=== PATIENT | female | born 1950 | race Caucasian/White ===

== ENCOUNTER 2016-11-26 08:00 | Outpatient (CLI) | payer MEDICARE | END 2016-11-26 08:01 | disposition home or self-care (01) | DX: B19.20 Unspecified viral hepatitis C without hepatic coma (principal) ==

== ENCOUNTER 2017-02-22 09:54 | Outpatient (CLI) | payer MEDICARE | END 2017-02-22 09:55 | disposition home or self-care (01) | DX: B19.20 Unspecified viral hepatitis C without hepatic coma (principal) ==

== ENCOUNTER 2017-04-26 09:18 | Outpatient (CLI) | payer MEDICARE, MEDICAID ==
[2017-04-26 20:44] LABS: CHOL/HDL RATIO 3.1 (<4.4); CHOLESTEROL 178 mg/dL; HDL CHOLESTEROL 57 mg/dL; LDL/HDL RATIO 1.6 (<4.4); TRIGLYCERIDES 138 mg/dL; VLDL CHOLESTEROL 28 mg/dL
== END 2017-04-26 09:19 | disposition home or self-care (01) ==
LOC: LAB.F 09:18
PROVIDERS: ATTEND Internal Medicine Cardiovascular Disease
DX: E78.5 Hyperlipidemia, unspecified (principal)
CPT/HCPCS: 36415; 80061

== ENCOUNTER 2017-08-13 09:56 | Outpatient (CLI) | payer MEDICARE, MEDICAID ==
[2017-08-13 18:50] LABS: BUN - BLOOD UREA NITROGEN 25 mg/dL (6-20); CALCIUM 9.2 mg/dL (8.5-10.3); CARBON DIOXIDE - CO2 30 mmol/L (21-32); CHLORIDE 102 mmol/L (101-111); CHOLESTEROL 155 mg/dL; CREATININE 0.8 mg/dL (0.4-1.0); GFR - MDRD 72 (>89); GLUCOSE 101 mg/dL (70-100); HDL CHOLESTEROL 51 mg/dL; LDL/HDL RATIO 1.7 (<4.4); POTASSIUM 4.3 mmol/L (3.5-5.0); SODIUM 138 mmol/L (135-145); TRIGLYCERIDES 91 mg/dL; VLDL CHOLESTEROL 18 mg/dL
== END 2017-08-13 09:57 | disposition home or self-care (01) ==
LOC: LAB.F 09:56
PROVIDERS: ATTEND Internal Medicine Cardiovascular Disease
DX: E78.5 Hyperlipidemia, unspecified (principal); I10 Essential (primary) hypertension
CPT/HCPCS: 36415; 80048; 80061

== ENCOUNTER 2017-09-03 08:36 | Outpatient (CLI) | payer MEDICARE, MEDICAID ==
--- NOTE | 2017-09-04 15:20 | Mammography Report ---
DIGITAL SCREENING MAMMOGRAM: 09/03/2017 CLINICAL INDICATION: A 66-year-old, for screening. COMPARISON: 11/2013, 11/2012, 10/2011, 01/2010. TECHNIQUE: Routine CC and MLO projections were obtained of the breasts. FINDINGS: Scattered fibroglandular tissue is present within the breasts. There are no dominant urmila s, suspicious microcalcifications, or secondary signs of malignancy. In comparison to the previous st udies, there are no significant changes. ASSESSMENT: NO MAMMOGRAPHIC EVIDENCE OF MALIGNANCY. NO SIGNIFICANT INTERVAL CHANGES. RECOMMENDATION: Screening mammography is recommended annually. BIRADS category 1 - negative. STANDARD QUALIFYING STATEMENTS 1. This examination was reviewed with the aid of Computed-Aided Detection (CAD). 2. A negative or benign imaging report should not delay biopsy if clinically suspicious findings are present. Consider surgical consultation if warranted. More than 5% of cancers are not identified by i maging. 3. Dense breasts may obscure an underlying neoplasm. JOB #: [id number] EXT JOB #:[id number]
== END 2017-09-03 08:37 | disposition home or self-care (01) ==
LOC: DI.S 08:36
PROVIDERS: ATTEND Nurse Practitioner Family
DX: Z12.31 Encounter for screening mammogram for malignant neoplasm of breast (principal)
CPT/HCPCS: 77067

== ENCOUNTER 2018-05-22 08:10 | Outpatient (CLI) | payer MEDICARE, MEDICAID | END 2018-05-22 08:11 | disposition critical access hospital (66) | LOC: EMS 08:10 | PROVIDERS: ATTEND Surgery | DX: R42 Dizziness and giddiness (principal); R06.00 Dyspnea, unspecified | CPT/HCPCS: A0425; A0427 ==

== ENCOUNTER 2018-05-22 08:38 | Inpatient (IN) | payer MEDICARE, MEDICAID ==
--- NOTE | 2018-05-22 08:52 | ED Physician Documentation ---
History of Present Illness - Stated complaint Stated Complaint: SOA, DIZZY, FALL - Chief complaint Chief Complaint: Resp - Additonal information Additional information: hx from pt 67 female this AM she became weak and SOA and slumped to the floor per EMS no injury pt says her head hurts denies neck pain states she had a period of inability to speak - could not form the words no focal numbness or weakness not sure of duration of sx but more than 10 min and less than 1 hr per EMS she was found to be in new onset a fib pt recently saw cardiology for soa with exertion and was told he had a healthy heart denies fever cough NVD no CP EMS strated a duoneb which did not help ahd gave dilt for RVR Review of Systems Constitutional: denies: Fever Throat: denies: Sore throat Cardiac: denies: Chest pain / pressure, Palpitations Respiratory: reports: Dyspnea. denies: Cough GI: denies: Abdominal Pain, Nausea, Vomiting Neurologic: reports: Generalized weakness, Near syncope, Headache. denies: Focal weakness, Numbness, Head injury Endocrine: denies: Easy bruising / bleeding Immunocompromised: denies: Immunocompromised PD PAST MEDICAL HISTORY - Past Medical History Cardiovascular: Deep vein thrombosis, High cholesterol, Hypertension Respiratory: None Endocrine/Autoimmune: None GI: Hepatitis : None HEENT: None Psych: Post traumatic stress disorder Musculoskeletal: None, Osteoarthritis Derm: None - Past Surgical History Past Surgical History: Yes General: Colonoscopy, Other Ortho: Other HEENT: Other - Present Medications Home Medications: Ambulatory Orders Medication Instructions Recorded Confirmed Aspirin Chewable [St Bruce 81 mg PO DAILY 07/31/15 05/22/18 Aspirin] Meloxicam 7.5 mg PO BID PRN 10/26/15 05/22/18 Amlodipine Besylate 2.5 mg PO DAILY 05/22/18 05/22/18 Atorvastatin Calcium 40 mg PO QPM 05/22/18 05/22/18 Ergocalciferol [Vitamin D2] 50,000 units PO WESA@0900 05/22/18 05/22/18 Furosemide 20 mg PO DAILY 05/22/18 05/22/18 Lisinopril 20 mg PO DAILY 05/22/18 05/22/18 Spironolactone 25 mg PO DAILY 05/22/18 05/22/18 - Allergies Allergies/Adverse Reactions: Allergies Allergy/AdvReac Type Severity Reaction Status Date / Time bupropion HCl * Allergy Severe Hallucinati Verified 05/22/18 08:48 [From Wellbutrin] ons - Social History Does the pt smoke?: No Smoking Status: Former smoker Does the pt drink ETOH?: No - Immunizations Immunizations are current?: Yes PD ED PE NORMAL - Vitals Vital signs reviewed: Yes - General General: Alert and oriented X 3 - HEENT HEENT: PERRL - Neck Neck: Supple, no meningeal sign - Cardiac Cardiac: No: RRR - Respiratory Respiratory: Clear bilaterally - Abdomen Abdomen: Soft, Non tender - Derm Derm: Normal color - Neuro Neuro: Alert and oriented X 3, cast associate 2-12 intact, No motor deficit, No sensory deficit, Normal speech, Other (at this time NIHSS is zero) Eye Opening: Spontaneous Motor: Obeys Commands Verbal: Oriented GCS Score: 15 Results - Vitals Vitals: Vital Signs - 24 hr 05/22/18 05/22/18 05/22/18 08:44 09:12 10:12 Temperature 36.3 C L 36.6 C Heart Rate 73 66 74 Respiratory 17 17 20 Rate Blood Pressure 135/86 H 119/77 136/92 H O2 Saturation 94 97 100 05/22/18 05/22/18 05/22/18 11:10 12:06 13:32 Temperature Heart Rate 78 84 117 H Respiratory 20 20 18 Rate Blood Pressure 132/89 H 133/95 H 113/94 H O2 Saturation 96 96 94 Oxygen O2 Source Room air - EKG (time done) 0851 Rate: Rate (enter#) Rhythm: Atrial fibrillation Intervals: LBBB Other comments: Other comments (this is a change form her prior EKG and sounds like it is very new as she just saw her heel packer as was told everything was normal) - Labs Labs: Laboratory Tests 05/22/18 05/22/18 05/22/18 09:20 09:20 09:20 WBC 8.4 RBC 4.46 Hgb 13.4 Hct 40.3 MCV 90.3 MCH 30.0 MCHC 33.2 RDW 14.2 Plt Count 170 MPV 9.4 Neut # (Auto) 6.0 Lymph # (Auto) 1.7 [place] # (Auto) 0.5 Eos # (Auto) 0.1 Baso # (Auto) 0.1 Absolute Nucleated RBC 0.00 Nucleated RBC % 0.0 Sodium 137 Potassium 3.9 Chloride 102 Carbon Dioxide 30 Anion Gap 5.0 L BUN 18 Creatinine 0.7 Estimated GFR (MDRD) 83 L Glucose 124 H Calcium 8.7 Troponin I < 0.04 Urine Color Urine Clarity Urine pH Ur Specific [place] Urine Protein Urine Glucose (UA) Urine Ketones Urine Occult Blood Urine Nitrite Urine Bilirubin Urine Urobilinogen Ur Leukocyte Esterase Ur Microscopic Review Urine Culture Comments 05/22/18 12:03 WBC RBC Hgb Hct MCV MCH MCHC RDW Plt Count MPV Neut # (Auto) Lymph # (Auto) [place] # (Auto) Eos # (Auto) Baso # (Auto) Absolute Nucleated RBC Nucleated RBC % Sodium Potassium Chloride Carbon Dioxide Anion Gap BUN Creatinine Estimated GFR (MDRD) Glucose Calcium Troponin I Urine Color YELLOW Urine Clarity CLEAR Urine pH 5.0 Ur Specific [place] 1.015 Urine Protein NEGATIVE Urine Glucose (UA) NEGATIVE Urine Ketones NEGATIVE Urine Occult Blood TRACE-INTA Urine Nitrite NEGATIVE Urine Bilirubin NEGATIVE Urine Urobilinogen 0.2 (NORMAL) Ur Leukocyte Esterase NEGATIVE Ur Microscopic Review NOT INDICATED Urine Culture Comments NOT INDICATED - Rads (name of study) CTH Radiology: See rad report (no acute process) PD MEDICAL DECISION MAKING - ED course ED course: obtained records from [facility] cardio pt seen 04/04 EKG showed a fib and LBBB no afib is NOT NEW stress EKG was non diagnostic nuc stress showed nl myocardial perfusion, low risk for major coronary ischemic events there is no discussion in notes I received about anticoagulating pt for her a fib got updated med list from PMD and no anticoag pt not SOA upon arrival in ED seems she had an episodes of severe weakness and aphasia now resolved and she has a fib and is not anticoagulated CTH neg may be a TIA ABCD2 score 4 also may have int a fib - perhaps that is why she felt suddenly faint this morning rate better with dilt from EMS plan to admit to obs for TIA to get echo carotids serial neuro exams etc gave asa serial neuro exams in ED = no acute changes - Sepsis Event Vital Signs: Vital Signs - 24 hr 05/22/18 05/22/18 05/22/18 08:44 09:12 10:12 Temperature 36.3 C L 36.6 C Heart Rate 73 66 74 Respiratory 17 17 20 Rate Blood Pressure 135/86 H 119/77 136/92 H O2 Saturation 94 97 100 05/22/18 05/22/18 05/22/18 11:10 12:06 13:32 Temperature Heart Rate 78 84 117 H Respiratory 20 20 18 Rate Blood Pressure 132/89 H 133/95 H 113/94 H O2 Saturation 96 96 94 Oxygen O2 Source Room air Departure - Departure Disposition: ED Place in Observation Clinical Impression: TIA (transient ischemic attack) Atrial fibrillation Qualifiers: Atrial fibrillation type: unspecified Qualified Code(s): I48.91 - Unspecified atrial fibrillation Condition: Good NIHSS - Time Time: 08:45 - Level of Consciousness Level of consciousness: (0) Alert, Keenly responsive LOC Questions: (0) Answers both Q's correct LOC Commands: (0) Performs both correctly - Gaze Best Gaze: (0) Normal - Visual Visual: (0) No loss - Facial Palsy Facial Palsy: (0) Normal, symmetrical movement - Motor Arms (both separate) Motor Arm (right): (0) No drift Motor Arm (left): (0) No drift - Motor Legs (both separate) Motor Leg (right): (0) No drift Motor Leg (left): (0) No drift - Limb Ataxia Limb Ataxia: (0) Absent - Sensory Sensory: (0) Normal - Best Language Best Language: (0) No aphasia - Dysarthria Dysarthria: (0) Normal - Extinction and Inattention (formally neg Extinction and inattention: (0) No abnormality - Total Score/Results Total Score/Result: 0
[2018-05-22 09:30] LABS: BASOPHILS # (AUTO) 0.1 10^3/uL (0.0-0.1); BASOPHILS % (AUTO) 1.1 %; EOSINOPHILS # (AUTO) 0.1 10^3/uL (0.0-0.7); EOSINOPHILS % (AUTO) 0.8 %; HGB - HEMOGLOBIN 13.4 g/dL (12.0-16.0); LYMPHOCYTES # (AUTO) 1.7 10^3/uL (1.5-3.5); LYMPHOCYTES % (AUTO) 20.2 %; MEAN CORPUSCULAR HGB CONC 33.2 g/dL (32.0-36.0); MEAN CORPUSCULAR VOLUME 90.3 fL (81.0-99.0); MEAN PLATELET VOLUME 9.4 fL (7.9-10.8); MONOCYTES # (AUTO) 0.5 10^3/uL (0.0-1.0); MONOCYTES % (AUTO) 5.7 %; NEUTROPHILS % (AUTO) 72.2 %; PLT - PLATELET COUNT 170 10^3/uL (130-450); RED BLOOD COUNT 4.46 10^6/uL (4.20-5.40); RED CELL DISTRIBUTION WIDTH 14.2 % (12.0-15.0); WHITE BLOOD COUNT 8.4 x10^3/uL (4.8-10.8)
[2018-05-22 09:39] LABS: CALCIUM 8.7 mg/dL (8.5-10.3); CREATININE 0.7 mg/dL (0.4-1.0)
--- NOTE | 2018-05-22 10:06 | CT Report ---
Procedure Date: 05/22/2018 Accession Number: [id number] / [id number] Procedure: CT - Head W/O CPT Code: FULL RESULT: EXAM: CT HEAD EXAM DATE: 05/22/2018 09:40 AM. CLINICAL HISTORY: New atrial fibrillation. Abnormal speech. COMPARISON: 07/31/2015. TECHNIQUE: Multiaxial CT images were obtained from the foramen magnum to the vertex. Reformats: Sagittal and coronal. IV contrast: None. In accordance with CT protocol optimization, one or more of the following dose reduction techniques were utilized for this exam: automated exposure control, adjustment of mA and/or KV based on patient size, or use of iterative reconstructive technique. FINDINGS: Parenchyma: No intraparenchymal hemorrhage. No evidence of mass, midline shift, or CT findings of infarction. Georges-white differentiation is distinct. Extraaxial Spaces: Normal for age. No subdural or epidural collections identified. Ventricles: Normal in size and position. Sinuses and Orbits: Imaged paranasal sinuses, orbits, and mastoids show no significant abnormality. Bones: No evidence of fracture or calvarial defect. Other: None. IMPRESSION: Normal head CT. RADIA
[2018-05-22] MEDS ORDERED: ACETAMINOPHEN 325 MG TABLET PO STA (11:40)
[2018-05-22 12:16] LABS: BILIRUBIN,URINE NEGATIVE (NEGATIVE); GLUCOSE, URINE (UA) NEGATIVE (NEGATIVE); KETONES,URINE (UA) NEGATIVE (NEGATIVE); LEUKOCYTE ESTERASE, URINE NEGATIVE (NEGATIVE); NITRITE,URINE NEGATIVE (NEGATIVE); OCCULT BLOOD,URINE TRACE-INTA (NEGATIVE); PROTEIN,URINE NEGATIVE (NEGATIVE); UROBILINOGEN,URINE 0.2 (NORMAL) E.U./dL (NORMAL)
[2018-05-22 12:20] LABS: CLARITY,URINE CLEAR (CLEAR)
[2018-05-22] MEDS ORDERED: ASPIRIN CHEW 81 MG TABLET PO STA (12:36)
[2018-05-22] MEDS ORDERED: ACETAMINOPHEN 325 MG TABLET PO PRN (14:26)
--- NOTE | 2018-05-22 14:40 | HISTORY & PHYSICAL EXAMINATION ---
Chief Complaint - Chief Complaint Chief Complaint: TIA, left weakness History of Present Illness - Admitted From Admitted From:: ER - History Obtained From History obtained from: pt and her son - History of Present Illness HPI Comment/Other: Ms. Baez is a 67-yrs-old female with a PMH significant for HTN, HLD, DVT, Hepatitis C, PTSD, Osteoarthritis, who present ER complains of TIA. pt report today morning, she became so weak, she could not stand up, and slumped to the floor. There is no injury reported per EMS. Pt report she could not find the words to speak for a period of time. Pt's son found pt could not rise her left hand. pt report less than one hour, her symptoms disappeared. Pt report she visited her account development specialist about one month, she had chemical stress test, which reveals she had "good heart" by pt report. Pt denies chest pain, shortness of breath, headache, abdominal pain, nausea, vomiting, diarrhea, vision change, dysurina, hemoturia. In ER pt is found to have new onset of Afib in EKG. CT of head is unremarkable. Pt is admitted for TIA workup and new onset of Afib History - Past Medical History Cardiovascular: reports: Deep vein thrombosis, High cholesterol, Hypertension Respiratory: reports: None Endocrine/Autoimmune: reports: None GI: reports: Hepatitis : reports: None HEENT: reports: None Psych: reports: Post traumatic stress disorder Musculoskeletal: reports: None, Osteoarthritis Derm: reports: None MRSA Hx?: No - Past Surgical History General: reports: Colonoscopy, Other Ortho: reports: Other HEENT: reports: Other - Family & Social History Family History: Mother: , CVA/TIA, Father: , CAD Family History Comment/Other: pt is living alone at [facility], pt had two adopted sons Living arrangement: At home Living Situation: Alone Social History Notes: pt denies cigarette smoking, alcohol and drug abuse - Substance History Use: Uses substance without health or social issues: NONE - POLST Patient has POLST: No POLST Status: Full Code Meds/Allgy - Home Medications Home Medications: Ambulatory Orders Medication Instructions Recorded Confirmed Aspirin Chewable [St Bruce 81 mg PO DAILY 07/31/15 05/22/18 Aspirin] Meloxicam 7.5 mg PO BID PRN 10/26/15 05/22/18 Amlodipine Besylate 2.5 mg PO DAILY 05/22/18 05/22/18 Atorvastatin Calcium 40 mg PO QPM 05/22/18 05/22/18 Ergocalciferol [Vitamin D2] 50,000 units PO ARACELISA@0900 05/22/18 05/22/18 Furosemide 20 mg PO DAILY 05/22/18 05/22/18 Lisinopril 20 mg PO DAILY 05/22/18 05/22/18 Spironolactone 25 mg PO DAILY 05/22/18 05/22/18 - Allergies Allergies/Adverse Reactions: Allergies Allergy/AdvReac Type Severity Reaction Status Date / Time bupropion HCl * Allergy Severe Hallucinati Verified 05/22/18 08:48 [From Wellbutrin] ons Review of Systems - Constitutional Constitutional: reports: Weakness. denies: Fatigue, Fever, Chills, Malaise, Poor appetite, Diaphoresis, Night sweats - Eyes Eyes: denies: Pain, Irritation, Amaurosis, Blurred vision, Spots in vision, Field loss, Vision loss, Dipolpia - Ears, Nose & Throat Ears, Nose & Throat: denies: Ear pain, Hearing loss, Hearing aids, Tinnitus, Nasal pain, Nasal discharge, Nosebleeds, Nasal obstruction, Nasal congestion, Postnasal drainage, Dentures, Sore throat, Hoarseness, Mouth lesions, Bleeding gums, Dental decay - Cardiovascular Cariovascular: denies: Irregular heart rate, Palpitations, Chest pain, Edema, Lightheadedness, Syncope, Exertional dyspnea, Decr. exercise tolerance - Respiratory Respiratory: denies: Cough, Sputum production, Wheezing, Snoring, Hemoptysis, Orthopnea, SOB at rest, SOB with exertion - Gastrointestinal Gastrointestinal: denies: Abdominal pain, Abdominal distention, Constipation, Diarrhea, Change in bowel habits, Rectal bleeding, Black stools, Bloody stools, Nausea, Vomiting, Bile emesis, Juan blood emesis, Coffee grounds emesis, Reflux /heartburn - Genitourinary Genitourinary: denies: Dysuria, Frequency, Urgency, Hematuria, Incontinence, Flank pain, Nocturia, Urethral discharge - Musculoskeletal Musculoskeletal: denies: Muscle pain, Back pain, Muscle aches, Stiffness, Limited range of motion, Muscle weakness, Gout, Joint pain - Integumentary Integumentary: denies: Rash, Pruritis, Lesions, Dryness, Lumps, Acne, Pigment changes, Nail changes - Neurological Neurological: reports: Focal weakness, Dizziness, Abnormal gait, Incoordination. denies: General weakness, Headache, Numbness, Memory problems, Pre-existing deficit, Seizures, Slurred speech - Psychiatric Psychiatric: denies: Depression, Anxiety, Suicidal, Delusions, Hallucinations, Homicidal - Endocrine Endocrine: denies: Polyuria, Polydypsia, Polyphagia, Intolerance to cold - Hematologic/Lymphatic Hematologic/Lymphatic: denies: Anemia, Bruising, Petechiae, Blood clots, Lymphadenopathy, Bleeding tendencies Exam - Vital Signs Reviewed Vital Signs: Yes Vital Signs: Vital Signs x48h Temp Pulse Resp BP Pulse Ox 05/22/18 13:32 117 H 18 113/94 H 94 05/22/18 12:06 84 20 133/95 H 96 05/22/18 11:10 78 20 132/89 H 96 05/22/18 10:12 74 20 136/92 H 100 05/22/18 09:12 36.6 C 66 17 119/77 97 05/22/18 08:44 36.3 C L 73 17 135/86 H 94 - Physical Exam General Appearance: positive: No acute distress, Alert. negative: Lethargic Eyes Bilateral: positive: Normal inspection, PERRL, EOMI. negative: No lid inflammation, Conjunctivae nml, No scleral icterus ENT: positive: ENT inspection nml, Pharynx nml, No signs of dehydration. negative: Purulent nasal drainage, Pharyngeal erythema, Oral lesions Neck: positive: Nml inspection, Thyroid nml, No JVD, Trachea midline. negative : Thyromegaly, Lymphadenopathy (R), Lymphadenopathy (L), Stiff neck, Swelling/ bruising, Tracheal deviation Respiratory: positive: Chest non-tender, No respiratory distress, Breath sounds nml. negative: Wheezes, Rales, Rhonchi Cardiovascular: positive: Regular rate & rhythm, No murmur, No gallop. negative : Irregularly irregular, Extrasystoles, Tachycardia, Bradycardia, Systolic murmur, Diastolic murmur Peripheral Pulses: positive: 2+ Abdomen: positive: Non-tender, No organomegaly, Nml bowel sounds, No distention. negative: Tenderness, Guarding, Rebound Back: positive: Nml inspection. negative: CVA tenderness (R), CVA tenderness (L ) Skin: positive: Color nml, No rash, Warm, Dry. negative: Cyanosis, Diaphoresis , Pallor Extremities: positive: Non-tender, Full ROM, Nml appearance. negative: Calf tenderness, Joint swelling, Joaquim's sign/cords Neurologic/Psychiatric: positive: Oriented x3, Motor nml, Sensation nml, Mood/ affect nml. negative: Weakness, Sensory loss, Facial droop, Slurred/abnml speech, Depressed mood/affect Conclusion/Plan - Problem List (1) TIA (transient ischemic attack) Conclusion/Plan: pt report her left weakness and slurred speak last less than hour start Xarelto. pt has CHADS score 4.8% stroke risk per year. but it is new onset , pt report she does not have afib on her recent account development specialist visit. Hopefully after start on blood thinner, pt can have cardiac conversion by her account development specialist continue on Avorstatin ECHO, CTA of head, neck, MRI of head tele, vital monitor Lipid panel test (2) Atrial fibrillation Conclusion/Plan: pt's HR is controlled at 80-90. pt has CHADS score 4.8% stroke risk per year. but it is new onset, pt report she does not have afib on her recent account development specialist visit. Hopefully after start on blood thinner, pt can have cardiac conversion by her account development specialist continue tele, vital monitor Qualifiers: Atrial fibrillation type: unspecified Qualified Code(s): I48.91 - Unspecified atrial fibrillation (3) Weakness Conclusion/Plan: pt report she feel very weak, start PT/OT. (4) HTN (hypertension) Conclusion/Plan: stable, continue home meds, follow up MRI test (5) HLD (hyperlipidemia) Conclusion/Plan: stable, continue home meds Avorstatin (6) DVT prophylaxis Conclusion/Plan: SCD (7) Full code status Conclusion/Plan: pt request full code - Lab Results Fish Bones: 05/22/18 09:20 05/22/18 09:20 Core Measures - Anticipated LOS I expect patient to be DC'd or transferred within 96 hours.: Yes - DVT/VTE - Prophylaxis VTE/DVT Device ordered at admit?: Yes VTE/DVT Prophylaxis med ordered at admit?: No
[2018-05-22] MEDS ORDERED: IOPAMIDOL-300 100 ML VIAL ONE (14:52)
[2018-05-22] MEDS ORDERED: IOPAMIDOL-300 100 ML VIAL IVP ONE (15:38)
--- NOTE | 2018-05-22 16:01 | CT Report ---
Procedure Date: 05/22/2018 Accession Number: [id number] / [id number] Procedure: CT - Head Angio CPT Code: FULL RESULT: EXAM: CT ANGIOGRAM HEAD AND NECK. CT SCAN HEAD WITH CONTRAST. EXAM DATE:05/22/2018 03:28 PM. CLINICAL HISTORY:TIA. Abnormal speech. New atrial fibrillation. COMPARISON:CT scan of the head without contrast 05/22/2018 at 0938 hours. TECHNIQUE: Routine axial helical CTA imaging was performed from the aortic arch through the [place]. Routine axial CT imaging of the head was performed following contrast administration. Reconstructions: Routine multiplanar 3D MIP reconstructions. IV contrast: ISOVUE 300 80mL. NASCET Criteria are used for stenosis measurements. In accordance with CT protocol optimization, one or more of the following dose reduction techniques were utilized for this exam: automated exposure control, adjustment of mA and/or KV based on patient size, or use of iterative reconstructive technique. FINDINGS: CT SCAN HEAD POSTCONTRAST: Parenchyma: No intraparenchymal hemorrhage. No evidence of mass, midline shift, or CT findings of acute infarction. Georges-white differentiation is distinct. No abnormal enhancement. Extraaxial Spaces: Normal for age. No subdural or epidural collections identified. Ventricles: Normal in size and position. Sinuses and Orbits: Imaged paranasal sinuses, orbits, and mastoids show no significant abnormality. Bones: No evidence of fracture or calvarial defect. CT ANGIOGRAM EXTRACRANIAL CIRCULATION: The visualized arch is unremarkable. Great vessels are patent and unremarkable. Right Carotid: The common carotid, internal carotid, and external carotid arteries are widely patent. No dissection, significant atherosclerotic plaque, or calcification identified. Left Carotid: The common carotid, internal carotid, and external carotid arteries are widely patent. No dissection. Focal atherosclerotic calcification is seen laterally at the origin of the ICA, without significant stenosis. Vertebrals: The left vertebral artery is dominant and widely patent. The right vertebral artery is smaller in caliber. Intimal thickening with mild, 40%, stenosis is seen in the origin and proximal V1 segment. Otherwise the right vertebral artery is patent. No dissection. CT ANGIOGRAM INTRACRANIAL CIRCULATION: Normal. No stenoses or aneurysms of the visualized vessels. The A-comm is patent and unremarkable. Bilateral P-comm are patent and unremarkable. Mild to moderate hypoplasia of the left P1 segment off the basilar tip is noted. The left vertebral artery is dominant primarily forming the basilar artery. Bilateral PICA, AICA, and superior cerebellar arteries are unremarkable. The dural venous sinuses are patent. Other: The visualized bones, soft tissues, and lung apices are unremarkable. Spondylosis is noted throughout the cervical spine. C2-C3: Left hypertrophic osseous fusion of the facet joint is seen. Moderate to marked osseous foraminal stenosis. C3-C4: Degenerative disk and uncovertebral change. Moderate to marked left osseous foraminal stenosis. C6-C7: Degenerative disk and uncovertebral change. Bilateral foraminal stenosis. IMPRESSION: CT SCAN HEAD POSTCONTRAST: 1. No abnormal enhancement. 2. No acute abnormality. CT ANGIOGRAM NECK: 1. Unremarkable CTA of the extracranial circulation. No significant atherosclerotic change or stenosis. No dissection. 2. Atherosclerotic intimal calcification laterally at the origin of the left ICA. No significant stenosis. 3. The left vertebral artery is dominant and widely patent. 4. Mild, 40%, stenosis is seen at the origin and proximal V1 segment of the right vertebral artery. CT ANGIOGRAM HEAD: 1. Unremarkable CTA of the head. No aneurysm. No significant stenosis. RADIA
[2018-05-22] MEDS: RIVAROXABAN 10 MG TABLET PO SCH (16:25)
[2018-05-22] MEDS: SODIUM CHLORIDE FLUSH 0.9% 10 ML SYRINGE IVP SCH (16:25)
[2018-05-22] MEDS: ATORVASTATIN 40 MG TABLET PO SCH (20:27)
[2018-05-22] MEDS ORDERED: FUROSEMIDE 20 MG/2 ML VIAL IVP SCH (21:32)
[2018-05-22] MEDS ORDERED: MORPHINE 2 MG/ML SYRINGE IVP PRN (21:32)
[2018-05-22] MEDS: SODIUM CHLORIDE FLUSH 0.9% 10 ML SYRINGE IVP PRN ×2 (22:02→22:43)
--- NOTE | 2018-05-22 22:08 | XRAY Report ---
Procedure Date: 05/22/2018 Accession Number: [id number] / [id number] Procedure: XR - Chest 1 View X-Ray CPT Code: 28297 FULL RESULT: EXAM: CHEST RADIOGRAPHY EXAM DATE: 05/22/2018 10:02 PM. CLINICAL HISTORY: SOB, poss CHF. COMPARISON: XR CHEST PA / LAT 02/04/2007. TECHNIQUE: 1 view. FINDINGS: Lungs/Pleura: Patchy right basilar infiltrate. No pulmonary vascular congestion or effusion. Mediastinum: Within exam limitations, the cardiomediastinal contour is normal. Other: None. IMPRESSION: Patchy right basilar infiltrate. No overt congestive failure. RADIA
[2018-05-22] MEDS: cefTRIAXone 1 GM in SODIUM CHLORIDE 0.9% MINIBAG 100 ML IV SCH (22:42)
[2018-05-22] MEDS: AZITHROMYCIN INJ 500 MG in SODIUM CHLORIDE 0.9% 250 ML IV SCH (23:27)
[2018-05-23] MEDS: SODIUM CHLORIDE FLUSH 0.9% 10 ML SYRINGE IVP SCH ×4 (00:42→23:58)
[2018-05-23 05:57] LABS: BASOPHILS # (AUTO) 0.1 10^3/uL (0.0-0.1); BASOPHILS % (AUTO) 1.2 %; EOSINOPHILS # (AUTO) 0.1 10^3/uL (0.0-0.7); EOSINOPHILS % (AUTO) 1.4 %; HGB - HEMOGLOBIN 13.2 g/dL (12.0-16.0); LYMPHOCYTES % (AUTO) 35.9 %; MEAN CORPUSCULAR HEMOGLOBIN 29.9 pg (27.0-31.0); MEAN CORPUSCULAR HGB CONC 32.8 g/dL (32.0-36.0); MEAN CORPUSCULAR VOLUME 91.1 fL (81.0-99.0); MEAN PLATELET VOLUME 9.6 fL (7.9-10.8); MONOCYTES # (AUTO) 0.7 10^3/uL (0.0-1.0); MONOCYTES % (AUTO) 9.1 %; NEUTROPHILS # (AUTO) 4.3 10^3/uL (1.5-6.6); NEUTROPHILS % (AUTO) 52.4 %; PLT - PLATELET COUNT 161 10^3/uL (130-450); RED CELL DISTRIBUTION WIDTH 14.3 % (12.0-15.0); WHITE BLOOD COUNT 8.3 x10^3/uL (4.8-10.8)
[2018-05-23 06:10] LABS: ALBUMIN 3.6 g/dL (3.2-5.5); ALBUMIN/GLOBULIN RATIO 1.2 (1.0-2.2); BILIRUBIN,TOTAL 0.9 mg/dL (0.2-1.0); CALCIUM 8.7 mg/dL (8.5-10.3); CREATININE 0.7 mg/dL (0.4-1.0); MAGNESIUM 1.9 mg/dL (1.7-2.8); TOTAL PROTEIN 6.5 g/dL (6.7-8.2)
[2018-05-23] MEDS: diltiaZEM CD 120 MG CAPSULE PO SCH ×2 (08:27→09:11)
[2018-05-23] MEDS ORDERED: amLODIPine 5 MG TABLET PO SCH (09:00)
[2018-05-23] MEDS ORDERED: ENOXAPARIN 40 MG/0.4 ML SYRINGE SUBQ SCH (09:00)
[2018-05-23] MEDS ORDERED: LISINOPRIL 20 MG TABLET PO SCH (09:00)
[2018-05-23] MEDS ORDERED: ASPIRIN CHEW 81 MG TABLET PO SCH (09:00)
[2018-05-23] MEDS ORDERED: diazePAM 5 MG TABLET PO SCH (09:18)
[2018-05-23] MEDS: FUROSEMIDE 20 MG TABLET PO SCH (09:26)
[2018-05-23] MEDS: cefTRIAXone 1 GM in SODIUM CHLORIDE 0.9% MINIBAG 100 ML IV SCH (09:26)
[2018-05-23] MEDS: SPIRONOLACTONE 25 MG TABLET PO SCH (09:26)
[2018-05-23] MEDS: FAMOTIDINE 20 MG TABLET PO SCH (09:26)
[2018-05-23] MEDS: POLYETHYLENE GLYCOL 3350 17 GM PACKET PO SCH (10:20)
[2018-05-23] MEDS: SODIUM CHLORIDE FLUSH 0.9% 10 ML SYRINGE IVP PRN ×2 (10:27→23:58)
[2018-05-23] MEDS: AZITHROMYCIN INJ 500 MG in SODIUM CHLORIDE 0.9% 250 ML IV SCH (11:53)
--- NOTE | 2018-05-23 14:32 | PROVIDER PROGRESS NOTE ---
Subjective - Prog Note Date Prog Note Date: 05/23/18 Prog Note Time: 09:00 - Subjective Pt reports feeling: Improved Subjective: Arti complains of her ongoing shortness of breath with activity, and is found wearing supplemental oxygen. She denies new symptoms including worsening shortness of breath, chest pain or pressure, nausea, vomiting, or a new cough. Current Medications - Current Medications Current Medications: Active Medications Acetaminophen (Tylenol) 650 mg PO Q4HR PRN PRN Reason: Pain 1 to 4 Last Admin: 05/23/18 00:48 Dose: 650 mg Atorvastatin Calcium (Lipitor) 40 mg PO QPM [facility] Last Admin: 05/22/18 20:27 Dose: 40 mg Diltiazem HCl (Cardizem Cd) 120 mg PO DAILY [facility] Last Admin: 05/23/18 09:11 Dose: Not Given Ergocalciferol (Vitamin D2) 50,000 unit PO WESA@0900 [facility] Famotidine (Pepcid) 20 mg PO DAILY [facility] Last Admin: 05/23/18 09:26 Dose: 20 mg Furosemide (Lasix) 20 mg PO DAILY [facility] Last Admin: 05/23/18 09:26 Dose: 20 mg Ceftriaxone Sodium 1 gm/ (Sodium Chloride) 100 mls @ 200 mls/hr IV DAILY [facility] Last Infusion: 05/23/18 10:00 Dose: Infused Azithromycin 500 mg/ Sodium (Chloride) 250 mls @ 250 mls/hr IV DAILY [facility] Last Infusion: 05/23/18 13:13 Dose: Infused Lisinopril (Zestril) 10 mg PO DAILY [facility] Metoprolol Tartrate (Lopressor) 50 mg PO BID [facility] Morphine Sulfate (Morphine) 2 mg IVP Q6H PRN PRN Reason: Dyspnea Ondansetron HCl (Zofran Inj) 4 mg IVP Q6HR PRN PRN Reason: Nausea / Vomiting Polyethylene Glycol (Miralax) 17 gm PO DAILY [facility] Last Admin: 05/23/18 10:20 Dose: Not Given Rivaroxaban (Xarelto) 20 mg PO 1700 [facility] Last Admin: 05/22/18 16:25 Dose: 20 mg Sodium Chloride (Normal Saline Flush 0.9%) 10 ml IVP PRN PRN PRN Reason: NEEDED PER PROVIDER ORDERS Last Admin: 05/23/18 10:27 Dose: 10 ml Sodium Chloride (Normal Saline Flush 0.9%) 10 ml IVP 0100,0900,1700 [facility] Last Admin: 05/23/18 12:00 Dose: 10 ml Spironolactone (Aldactone) 25 mg PO DAILY [facility] Last Admin: 05/23/18 09:26 Dose: 25 mg Aspirin Chewable [[place] Aspirin] 81 mg PO DAILY 07/31/15 Meloxicam 7.5 mg PO BID PRN 10/26/15 Amlodipine Besylate 2.5 mg PO DAILY 05/22/18 Atorvastatin Calcium 40 mg PO QPM 05/22/18 Ergocalciferol [Vitamin D2] 50,000 units PO WESA@0900 05/22/18 Furosemide 20 mg PO DAILY 05/22/18 Lisinopril 20 mg PO DAILY 05/22/18 Spironolactone 25 mg PO DAILY 05/22/18 Objective - Vital Signs/Intake & Output Reviewed Vital Signs: Yes Vital Signs: Vital Signs x48h Temp Pulse Resp BP Pulse Ox 05/23/18 13:00 84 18 120/90 H 94 05/23/18 08:20 36.9 C 75 20 147/101 H 98 Intake & Output: Intake & Output 05/20/18 05/21/18 05/22/18 05/23/18 23:59 23:59 23:59 23:59 Intake Total 500 1400 Output Total 400 Balance 500 1000 - Objective General Appearance: positive: No acute distress, Alert Eyes Bilateral: positive: Normal inspection, PERRL ENT: positive: ENT inspection nml, Pharynx nml, No signs of dehydration Neck: positive: Nml inspection, Thyroid nml, No JVD Respiratory: positive: Chest non-tender, No respiratory distress, Other ( diminished, fine crackles- scattered bilaterally.) Cardiovascular: positive: No gallop, Irregularly irregular, Tachycardia, Systolic murmur, Decreased pulse(s) Peripheral Pulses: 1+ Radial (R), 1+ Radial (L) Abdomen: positive: Non-tender, Nml bowel sounds, Other (obese, soft) Back: positive: Nml inspection Skin: positive: No rash, Warm, Dry Extremities: positive: Non-tender, Full ROM, Pedal edema (trace, reduced later in the day.) Neurologic/Psychiatric: positive: Oriented x3, CN's nml (2-12), Motor nml, Sensation nml, Weakness, Facial droop (prior left facial droop, improved.), Slurred/abnml speech, Depressed mood/affect Reflexes: Bicep (R): 2+, Bicep (L): 2+ - Lab Results Fish Bones: 05/23/18 05:40 05/23/18 05:40 Other Labs: Lab Results x24hrs 05/23/18 05/23/18 Range/Units 05:40 05:40 WBC 8.3 (4.8-10.8) x10^3/uL RBC 4.40 (4.20-5.40) 10^6/uL Hgb 13.2 (12.0-16.0) g/dL Hct 40.1 (37.0-47.0) % MCV 91.1 (81.0-99.0) fL MCH 29.9 (27.0-31.0) pg MCHC 32.8 (32.0-36.0) g/dL RDW 14.3 (12.0-15.0) % Plt Count 161 (130-450) 10^3/uL MPV 9.6 (7.9-10.8) fL Neut # (Auto) 4.3 (1.5-6.6) 10^3/uL Lymph # (Auto) 3.0 (1.5-3.5) 10^3/uL [place] # (Auto) 0.7 (0.0-1.0) 10^3/uL Eos # (Auto) 0.1 (0.0-0.7) 10^3/uL Baso # (Auto) 0.1 (0.0-0.1) 10^3/uL Absolute Nucleated RBC 0.00 x10^3/uL Nucleated RBC % 0.0 /100WBC Sodium 140 (135-145) mmol/L Potassium 3.8 (3.5-5.0) mmol/L Chloride 100 L (101-111) mmol/L Carbon Dioxide 31 (21-32) mmol/L Anion Gap 9.0 (6-13) BUN 17 (6-20) mg/dL Creatinine 0.7 (0.4-1.0) mg/dL Estimated GFR (MDRD) 83 L (>89) Glucose 92 (70-100) mg/dL Calcium 8.7 (8.5-10.3) mg/dL Magnesium 1.9 (1.7-2.8) mg/dL Total Bilirubin 0.9 (0.2-1.0) mg/dL AST 18 (10-42) IU/L ALT 28 (10-60) IU/L Alkaline Phosphatase 35 L (42-121) IU/L Total Protein 6.5 L (6.7-8.2) g/dL Albumin 3.6 (3.2-5.5) g/dL Globulin 2.9 (2.1-4.2) g/dL Albumin/Globulin Ratio 1.2 (1.0-2.2) - Diagnostic Imaging Diagnostic Imaging Results: positive: Prelim report reviewed, Final report reviewed Diagnostic Imaging Comments: EXAM: CHEST RADIOGRAPHY EXAM DATE: 05/22/2018 10:02 PM. IMPRESSION: Patchy right basilar infiltrate. No overt congestive failure. ECHOCARDIOGRAM 05/22/18 Final read by David Rawls MD 1. The underlying rhythm is atrial fibrillation. 2. The LV size is normal. LV wall thickness is normal. Overall LV systolic function is mildly impaired with an EF of 45-50%. Paradoxical septal motion consistent with with LBBB. 3. Mild rifht ventricular enlargement. The RV systolic function is mildly impaired. 4. There is mild to moderate mitral regurg. 5. Moderately abnormal right heart pressures. Moderately right heart pressures. The RVSP at rest is 55 mmHg. 6. Contrast injected of agitated saline was negative for an atrial shunt. ABX Reporting Has patient been on IV antibiotics over the past 48 hours?: Yes Assessment/Plan - Problem List (1) Right lower lobe pneumonia Impression: A chest x-ray was completed late last evening after the patient complained of continued SOB, especially with activity. It showed a new right low lobe infiltrate, so the patient was started on IV treatment including Azithromycin and Rocephin. A sputum culture was ordered, and still not obtained. Plan: Respiratory care with IS, xopenex nebulizers PRN and continue treatment for PNA. (2) Atrial fibrillation Impression: The patient has a history of this and as per telemetry reaches heart rates ~130 with ambulation. She has been prescribed oral diltiazem by the [facility] , and today Metoprolol tartrate 50 mg PO BID was added, with a continuation of telemetry. Plan: Continue to monitor vital signs, telemetry and give metoprolol, with hopefully 2 doses before midnight. Qualifiers: Atrial fibrillation type: chronic Qualified Code(s): I48.2 - Chronic atrial fibrillation (3) HTN (hypertension) Qualifiers: Hypertension type: essential hypertension Qualified Code(s): I10 - Essential (primary) hypertension (4) TIA (transient ischemic attack) Impression: Based on the patient's symptoms, she has likely suffered from TIAs with her description of left sided weakness, impaired speech, and a fall that have now resolved. A head MRI has been completed, with no preliminary results. Echo results show no evidence of an atrial shunt(PFO) Plan: Continue to monitor and await final MRI results. (5) Weakness Impression: The patient was found on her kitchen floor by her son, after she lost consciousness, was reported as appearing "Blue" and states that leading up to her fall, she felt very dizzy, and could see the room spinning and has no memory of the next course of events. Plan: PT/OT to see, provide assistance and consider a rehab stay. (6) MIGUELITO (obstructive sleep apnea) Impression: The patient states that she has had this for a "while", and is compliant with her home device. Her echocardiogram shows evidence of ongoing MIGUELITO, and also may be influenced by her acute PNA. She has moderately abnormal right heart pressures with an elevated RVSP at rest of 55 mm Hg. She states that she does not have her home CPAP with her, but will ask her son to bring it in. I will enter a home device order and I. S. Plan: Continue oxygen, especially for sleeping and await home unit. (7) Moderate to severe pulmonary hypertension Impression: Final echo results show moderately abnormal right heart pressures. The RVSP at rest is 55 mm Hg and she was started on Spironolactone yesterday at 25 mg PO daily. This is likely a consequence of her ongoing MIGUELITO, and acute PNA. Plan: Continue supplemental oxygen and monitor for side effects of spironolactone.
[2018-05-23] MEDS ORDERED: METOPROLOL TARTRATE 50 MG TABLET PO SCH (16:00)
[2018-05-23] MEDS: RIVAROXABAN 10 MG TABLET PO SCH (16:53)
[2018-05-23] MEDS ORDERED: LEVALBUTEROL 1.25 MG/3 ML NEB INH PRN (17:05)
--- NOTE | 2018-05-23 19:08 | MRI Report ---
Procedure Date: 05/23/2018 Accession Number: [id number] / [id number] Procedure: MRI - Brain W/O CPT Code: FULL RESULT: EXAM: MRI BRAIN WITHOUT CONTRAST EXAM DATE: 05/23/2018 11:33 AM. CLINICAL HISTORY: TIA. COMPARISON: CT angiogram head and neck performed 05/22/2018. TECHNIQUE: Multiplanar, multisequence T1-weighted and fluid-sensitive MR sequences of the brain were performed. Sequences optimized for routine evaluation. Other: None. IV Contrast: None. Findings: Relevant images are indicated (image number, series number). Multifocal areas of diffusion restriction including posterior right insula, right parietal cortex near the angular gyrus, corresponding low signal ADC, increased signal seen on axial FLAIR consistent with subacute ischemic strokes. No hemorrhage or mass effect. There is no hemosiderin deposition present in the brain. There is no hemorrhage, mass or midline shift. There is no cortical atrophy. The ventricles are not dilated. There is superimposed mild scattered white matter disease including suspected small old right internal capsule ischemic disease. Pituitary, mid brain, craniocervical junction negative. 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 Impressions: 1. Small multifocal areas of right MCA territory embolic subacute ischemic stroke including posterior right insula, right parietal cortex at the angular gyrus. No hemorrhage or mass effect. 2. Mild superimposed scattered white matter disease including small old suspected right internal capsule ischemic disease. Critical result: Findings discussed immediately with nurse practitioner Hanane Oleary by phone on 05/23/2018 at 1906 hrs. RADIA
[2018-05-23] MEDS: METOPROLOL TARTRATE 50 MG TABLET PO SCH (20:08)
[2018-05-23] MEDS: ATORVASTATIN 40 MG TABLET PO SCH (20:08)
[2018-05-23] MEDS: MAGNESIUM OXIDE 400 MG TABLET PO SCH (20:12)
[2018-05-23] MEDS: ONDANSETRON 4 MG/2 ML VIAL IVP PRN (23:58)
[2018-05-24] MEDS: HYDROcod/ACETAM 5/325 MG TABLET PO PRN ×2 (00:45→06:07)
[2018-05-24 05:24] LABS: BASOPHILS # (AUTO) 0.1 10^3/uL (0.0-0.1); BASOPHILS % (AUTO) 1.2 %; EOSINOPHILS # (AUTO) 0.1 10^3/uL (0.0-0.7); EOSINOPHILS % (AUTO) 0.8 %; HGB - HEMOGLOBIN 12.9 g/dL (12.0-16.0); LYMPHOCYTES # (AUTO) 2.5 10^3/uL (1.5-3.5); LYMPHOCYTES % (AUTO) 28.2 %; MEAN PLATELET VOLUME 9.4 fL (7.9-10.8); MONOCYTES # (AUTO) 0.7 10^3/uL (0.0-1.0); MONOCYTES % (AUTO) 7.7 %; NEUTROPHILS # (AUTO) 5.4 10^3/uL (1.5-6.6); NEUTROPHILS % (AUTO) 62.1 %; PLT - PLATELET COUNT 162 10^3/uL (130-450); RED BLOOD COUNT 4.31 10^6/uL (4.20-5.40); RED CELL DISTRIBUTION WIDTH 14.3 % (12.0-15.0); WHITE BLOOD COUNT 8.7 x10^3/uL (4.8-10.8)
[2018-05-24 05:32] LABS: ALBUMIN 3.8 g/dL (3.2-5.5); ALBUMIN/GLOBULIN RATIO 1.4 (1.0-2.2); BILIRUBIN,TOTAL 0.7 mg/dL (0.2-1.0); CALCIUM 8.7 mg/dL (8.5-10.3); CREATININE 0.6 mg/dL (0.4-1.0); TOTAL PROTEIN 6.6 g/dL (6.7-8.2)
[2018-05-24] MEDS: SODIUM CHLORIDE FLUSH 0.9% 10 ML SYRINGE IVP PRN (06:26)
[2018-05-24] MEDS: ONDANSETRON 4 MG/2 ML VIAL IVP PRN (06:26)
[2018-05-24] MEDS: SODIUM CHLORIDE FLUSH 0.9% 10 ML SYRINGE IVP SCH ×2 (09:00→16:57)
[2018-05-24] MEDS ORDERED: ERGOCALCIFEROL 50,000 UNIT CAPSULE PO SCH (09:00)
[2018-05-24] MEDS: cefTRIAXone 1 GM in SODIUM CHLORIDE 0.9% MINIBAG 100 ML IV SCH (09:01)
[2018-05-24] MEDS: SENNA 8.6 MG TABLET PO SCH (09:13)
[2018-05-24] MEDS: POLYETHYLENE GLYCOL 3350 17 GM PACKET PO SCH (09:13)
[2018-05-24] MEDS: DOCUSATE SODIUM 250 MG CAPSULE PO SCH (09:13)
[2018-05-24] MEDS: MAGNESIUM OXIDE 400 MG TABLET PO SCH (09:16)
[2018-05-24] MEDS: SPIRONOLACTONE 25 MG TABLET PO SCH (09:16)
[2018-05-24] MEDS: FAMOTIDINE 20 MG TABLET PO SCH (09:16)
[2018-05-24] MEDS: METOPROLOL TARTRATE 50 MG TABLET PO SCH (09:16)
[2018-05-24] MEDS: FUROSEMIDE 20 MG TABLET PO SCH (09:16)
[2018-05-24] MEDS: diltiaZEM CD 120 MG CAPSULE PO SCH (09:16)
[2018-05-24] MEDS: LISINOPRIL 20 MG TABLET PO SCH ×2 (09:18→09:43)
--- NOTE | 2018-05-24 09:33 | PROVIDER PROGRESS NOTE ---
Subjective - Prog Note Date Prog Note Date: 05/24/18 Prog Note Time: 09:32 - Subjective Pt reports feeling: No change Subjective: Arti states that she has been "extra tired" today, although later in the day noted to have improved energy. She denies any new symptoms such as increased shortness of breath, chest pain, palpitations, cough, nausea, vomiting or dizziness. Current Medications - Current Medications Current Medications: Active Medications Acetaminophen (Tylenol) 650 mg PO Q4HR PRN PRN Reason: Pain 1 to 4 Last Admin: 05/23/18 00:48 Dose: 650 mg Hydrocodone Bitart/Acetaminophen ([place] 5/325) 1 tab PO Q4HR PRN PRN Reason: PAIN Last Admin: 05/24/18 06:07 Dose: 1 tab Aspirin (Ecotrin) 325 mg PO DAILY [facility] Last Admin: 05/24/18 11:34 Dose: 325 mg Atorvastatin Calcium (Lipitor) 40 mg PO QPM [facility] Last Admin: 05/23/18 20:08 Dose: 40 mg Diltiazem HCl (Cardizem Cd) 120 mg PO DAILY [facility] Last Admin: 05/24/18 09:16 Dose: 120 mg Docusate Sodium (Colace 250mg Capsule) 250 - 500 mg PO DAILY [facility] Last Admin: 05/24/18 09:13 Dose: Not Given Ergocalciferol (Vitamin D2) 50,000 unit PO WESA@0900 [facility] Last Admin: 05/24/18 09:19 Dose: Not Given Famotidine (Pepcid) 20 mg PO DAILY [facility] Last Admin: 05/24/18 09:16 Dose: 20 mg Furosemide (Lasix) 20 mg PO DAILY [facility] Last Admin: 05/24/18 09:16 Dose: 20 mg Ceftriaxone Sodium 1 gm/ (Sodium Chloride) 100 mls @ 200 mls/hr IV DAILY [facility] Last Infusion: 05/24/18 09:35 Dose: Infused Azithromycin 500 mg/ Sodium (Chloride) 250 mls @ 250 mls/hr IV DAILY [facility] Last Infusion: 05/24/18 10:52 Dose: Infused Levalbuterol HCl (Xopenex) 1.25 mg INH RTQ4H PRN PRN Reason: Wheezing Lisinopril (Zestril) 10 mg PO DAILY [facility] Last Admin: 05/24/18 09:43 Dose: Not Given Magnesium Oxide (Mag Ox) 400 mg PO DAILYWM [facility] Last Admin: 05/24/18 09:16 Dose: 400 mg Metoprolol Succinate (Toprol Xl) 50 mg PO BID [facility] Last Admin: 05/24/18 17:34 Dose: 50 mg Morphine Sulfate (Morphine) 2 mg IVP Q6H PRN PRN Reason: Dyspnea Ondansetron HCl (Zofran Inj) 4 mg IVP Q6HR PRN PRN Reason: Nausea / Vomiting Last Admin: 05/24/18 06:26 Dose: 4 mg Polyethylene Glycol (Miralax) 17 gm PO DAILY [facility] Last Admin: 05/24/18 09:13 Dose: Not Given Rivaroxaban (Xarelto) 20 mg PO 1700 [facility] Last Admin: 05/24/18 16:57 Dose: 20 mg Senna (Senokot) 8.6 - 17.2 mg PO DAILY [facility] Last Admin: 05/24/18 09:13 Dose: Not Given Sodium Chloride (Normal Saline Flush 0.9%) 10 ml IVP PRN PRN PRN Reason: NEEDED PER PROVIDER ORDERS Last Admin: 05/24/18 06:26 Dose: 10 ml Sodium Chloride (Normal Saline Flush 0.9%) 10 ml IVP 0100,0900,1700 [facility] Last Admin: 05/24/18 16:57 Dose: 10 ml Spironolactone (Aldactone) 25 mg PO DAILY [facility] Last Admin: 05/24/18 09:16 Dose: 25 mg Aspirin Chewable [[place] Aspirin] 81 mg PO DAILY 07/31/15 Meloxicam 7.5 mg PO BID PRN 10/26/15 Amlodipine Besylate 2.5 mg PO DAILY 05/22/18 Atorvastatin Calcium 40 mg PO QPM 05/22/18 Ergocalciferol [Vitamin D2] 50,000 units PO WESA@0900 05/22/18 Furosemide 20 mg PO DAILY 05/22/18 Lisinopril 20 mg PO DAILY 05/22/18 Spironolactone 25 mg PO DAILY 05/22/18 Objective - Vital Signs/Intake & Output Reviewed Vital Signs: Yes Vital Signs: Vital Signs x48h Temp Pulse Resp BP BP Pulse Ox 05/24/18 09:16 131/88 H 05/24/18 07:54 36.5 C 69 18 118/75 95 05/24/18 05:00 36.7 C 73 18 131/88 H 96 Intake & Output: Intake & Output 05/21/18 05/22/18 05/23/18 05/24/18 23:59 23:59 23:59 23:59 Intake Total 500 2020 400 Output Total 800 Balance 500 1220 400 - Objective General Appearance: positive: No acute distress, Alert Eyes Bilateral: positive: Normal inspection, PERRL ENT: positive: ENT inspection nml, Pharynx nml, No signs of dehydration Neck: positive: Nml inspection, Thyroid nml, No JVD Respiratory: positive: Chest non-tender, No respiratory distress, Other ( diminshed, scattered crackles.) Cardiovascular: positive: No gallop, Irregularly irregular, Systolic murmur Peripheral Pulses: 1+ Radial (R), 1+ Radial (L) Abdomen: positive: Non-tender, Nml bowel sounds, Other (obese, soft) Skin: positive: No rash, Warm, Dry, Cyanosis Extremities: positive: Full ROM, Pedal edema (trace, BLE), Joint swelling Neurologic/Psychiatric: positive: Oriented x3, CN's nml (2-12), Motor nml, Sensation nml, Weakness, Sensory loss, Depressed mood/affect, Other (mild LUE weakness) Reflexes: Bicep (R): 3+, Bicep (L): 2+ - Lab Results Fish Bones: 05/25/18 05:00 05/25/18 05:00 Other Labs: Lab Results x24hrs 05/24/18 05/24/18 Range/Units 05:08 05:08 WBC 8.7 (4.8-10.8) x10^3/uL RBC 4.31 (4.20-5.40) 10^6/uL Hgb 12.9 (12.0-16.0) g/dL Hct 39.2 (37.0-47.0) % MCV 91.0 (81.0-99.0) fL MCH 30.0 (27.0-31.0) pg MCHC 33.0 (32.0-36.0) g/dL RDW 14.3 (12.0-15.0) % Plt Count 162 (130-450) 10^3/uL MPV 9.4 (7.9-10.8) fL Neut # (Auto) 5.4 (1.5-6.6) 10^3/uL Lymph # (Auto) 2.5 (1.5-3.5) 10^3/uL [place] # (Auto) 0.7 (0.0-1.0) 10^3/uL Eos # (Auto) 0.1 (0.0-0.7) 10^3/uL Baso # (Auto) 0.1 (0.0-0.1) 10^3/uL Absolute Nucleated RBC 0.00 x10^3/uL Nucleated RBC % 0.0 /100WBC Sodium 139 (135-145) mmol/L Potassium 4.1 (3.5-5.0) mmol/L Chloride 100 L (101-111) mmol/L Carbon Dioxide 34 H (21-32) mmol/L Anion Gap 5.0 L (6-13) BUN 14 (6-20) mg/dL Creatinine 0.6 (0.4-1.0) mg/dL Estimated GFR (MDRD) 100 (>89) Glucose 114 H (70-100) mg/dL Calcium 8.7 (8.5-10.3) mg/dL Total Bilirubin 0.7 (0.2-1.0) mg/dL AST 17 (10-42) IU/L ALT 22 (10-60) IU/L Alkaline Phosphatase 37 L (42-121) IU/L Total Protein 6.6 L (6.7-8.2) g/dL Albumin 3.8 (3.2-5.5) g/dL Globulin 2.8 (2.1-4.2) g/dL Albumin/Globulin Ratio 1.4 (1.0-2.2) ABX Reporting Has patient been on IV antibiotics over the past 48 hours?: Yes Assessment/Plan - Problem List (1) Cerebrovascular accident, embolic Impression: Based on the patient's symptoms, she has likely suffered from TIAs with her description of left sided weakness, impaired speech, and a fall that have now resolved. A head MRI has been completed, and shows small multifocal areas of right MCA embolic subacute ischemic stroke including posterior right insula, right parietal cortex at the angular gyrus. She is also found to have scattered white matter disease including small old suspected right internal capsule ischemic disease. Echo results show no evidence of an atrial shunt(PFO) Plan: Continue to treat her uncontrolled atrial fibrillation using 2 agents dilt and metoprolol and PT evaluation before discharge. (2) Right lower lobe pneumonia Impression: A chest x-ray was completed late last evening after the patient complained of continued SOB, especially with activity. It showed a new right low lobe infiltrate, so the patient was started on IV treatment including Azithromycin and Rocephin. A sputum culture was ordered, and still not obtained. Plan: Respiratory care with IS, xopenex nebulizers PRN and continue treatment for PNA. (3) Atrial fibrillation Impression: The patient has a history of this and as per telemetry was reaching heart rates ~130 with ambulation. Today, with ambulation she is much improved and only reaches around 105, with a general heart rate of ~70's. She was started pm oral diltiazem, and today Metoprolol tartrate 50 mg PO BID was changed to succinate, with a continuation of telemetry. The patient no longer has profound shortness of breath. Plan: Continue to monitor vital signs, telemetry and give metoprolol, with hopefully 2 doses before midnight. Qualifiers: Atrial fibrillation type: chronic Qualified Code(s): I48.2 - Chronic atrial fibrillation (4) HTN (hypertension) Impression: The patient is prescribed lisinopril and furosemide at home, but it is unclear as to her compliance. Today her blood pressure is 130's systolic over 80's diastolic. She is being rate controlled using oral dilt and metoprolol. Plan: Continue to monitor and continue medications. Qualifiers: Hypertension type: essential hypertension Qualified Code(s): I10 - Essential (primary) hypertension (5) Weakness Impression: The patient was found on her kitchen floor by her son, after she lost consciousness, was reported as appearing "Blue" and states that leading up to her fall, she felt very dizzy, and could see the room spinning and has no memory of the next course of events. The patient described her day as much improved in her physical abilities, and per nursing reports she is not thought to be ataxic. She will likely not need skilled rehab. Plan: PT/OT to evaluate prior to D/c. Tentatively plan for discharge home. (6) MIGUELITO (obstructive sleep apnea) Impression: The patient states that she has had this for a "while", and is compliant with her home device. Her echocardiogram shows evidence of ongoing MIGUELITO, and also may be influenced by her acute PNA. She has moderately abnormal right heart pressures with an elevated RVSP at rest of 55 mm Hg. She states that she does not have her home CPAP with her, but will ask her son to bring it in. Today, the patient's son has still not brought in her home unit. She has been on oxygen. Plan: Continue oxygen, especially for sleeping and await home unit. (7) Moderate to severe pulmonary hypertension Impression: Final echo results show moderately abnormal right heart pressures. The RVSP at rest is 55 mm Hg and she was started on Spironolactone upon admission at 25 mg PO daily. This is likely a consequence of her ongoing MIGUELITO, and acute PNA. Plan: Continue supplemental oxygen and monitor for side effects of spironolactone.
[2018-05-24] MEDS: AZITHROMYCIN INJ 500 MG in SODIUM CHLORIDE 0.9% 250 ML IV SCH (09:52)
[2018-05-24] MEDS: ASPIRIN EC 325 MG TABLET PO SCH (11:34)
[2018-05-24] MEDS: RIVAROXABAN 10 MG TABLET PO SCH (16:57)
[2018-05-24] MEDS: METOPROLOL SUCCINATE 50 MG TABLET PO SCH ×2 (17:34→20:01)
[2018-05-24] MEDS: ATORVASTATIN 40 MG TABLET PO SCH (20:56)
[2018-05-25] MEDS: HYDROcod/ACETAM 5/325 MG TABLET PO PRN (01:54)
[2018-05-25 05:26] LABS: BASOPHILS # (AUTO) 0.1 10^3/uL (0.0-0.1); EOSINOPHILS # (AUTO) 0.1 10^3/uL (0.0-0.7); EOSINOPHILS % (AUTO) 1.3 %; HGB - HEMOGLOBIN 13.2 g/dL (12.0-16.0); LYMPHOCYTES # (AUTO) 2.7 10^3/uL (1.5-3.5); LYMPHOCYTES % (AUTO) 29.2 %; MEAN CORPUSCULAR HGB CONC 32.8 g/dL (32.0-36.0); MEAN CORPUSCULAR VOLUME 91.2 fL (81.0-99.0); MEAN PLATELET VOLUME 9.2 fL (7.9-10.8); MONOCYTES # (AUTO) 0.6 10^3/uL (0.0-1.0); MONOCYTES % (AUTO) 6.8 %; NEUTROPHILS # (AUTO) 5.8 10^3/uL (1.5-6.6); NEUTROPHILS % (AUTO) 61.7 %; PLT - PLATELET COUNT 161 10^3/uL (130-450); RED BLOOD COUNT 4.41 10^6/uL (4.20-5.40); RED CELL DISTRIBUTION WIDTH 13.9 % (12.0-15.0); WHITE BLOOD COUNT 9.3 x10^3/uL (4.8-10.8)
[2018-05-25 05:39] LABS: ALBUMIN 3.5 g/dL (3.2-5.5); ALBUMIN/GLOBULIN RATIO 1.1 (1.0-2.2); CALCIUM 8.7 mg/dL (8.5-10.3); CREATININE 0.7 mg/dL (0.4-1.0); TOTAL PROTEIN 6.6 g/dL (6.7-8.2)
[2018-05-25] MEDS: ONDANSETRON 4 MG/2 ML VIAL IVP PRN (06:33)
[2018-05-25] MEDS: SODIUM CHLORIDE FLUSH 0.9% 10 ML SYRINGE IVP SCH ×2 (06:34→08:46)
[2018-05-25] MEDS: POLYETHYLENE GLYCOL 3350 17 GM PACKET PO SCH (08:41)
[2018-05-25] MEDS: MAGNESIUM OXIDE 400 MG TABLET PO SCH (08:42)
[2018-05-25] MEDS: SPIRONOLACTONE 25 MG TABLET PO SCH (08:42)
[2018-05-25] MEDS: ASPIRIN EC 325 MG TABLET PO SCH (08:43)
[2018-05-25] MEDS: FAMOTIDINE 20 MG TABLET PO SCH (08:44)
[2018-05-25] MEDS: diltiaZEM CD 180 MG CAPSULE PO SCH (08:44)
[2018-05-25] MEDS: METOPROLOL SUCCINATE 50 MG TABLET PO SCH ×2 (08:44→21:25)
[2018-05-25] MEDS: LISINOPRIL 20 MG TABLET PO SCH (08:45)
[2018-05-25] MEDS: FUROSEMIDE 20 MG TABLET PO SCH (08:48)
[2018-05-25] MEDS: cefTRIAXone 1 GM in SODIUM CHLORIDE 0.9% MINIBAG 100 ML IV SCH (08:50)
[2018-05-25] MEDS: SENNA 8.6 MG TABLET PO SCH (08:58)
[2018-05-25] MEDS: DOCUSATE SODIUM 250 MG CAPSULE PO SCH (08:58)
[2018-05-25] MEDS: AZITHROMYCIN INJ 500 MG in SODIUM CHLORIDE 0.9% 250 ML IV SCH (09:57)
[2018-05-25] MEDS ORDERED: ONDANSETRON ODT 4 MG TABLET TL PRN (11:58)
[2018-05-25] MEDS: SACCHAROMYCES BOULARDII 250 MG CAPSULE PO SCH ×2 (12:44→17:29)
[2018-05-25] MEDS: OXYMETAZOLINE NASAL SPRAY NAS SCH ×2 (12:46→21:26)
[2018-05-25] MEDS: AMOXICILLIN 250 MG CAPSULE PO SCH ×2 (14:09→21:25)
[2018-05-25] MEDS: RIVAROXABAN 10 MG TABLET PO SCH (17:29)
[2018-05-25] MEDS: ATORVASTATIN 40 MG TABLET PO SCH (21:25)
[2018-05-26] MEDS: AMOXICILLIN 250 MG CAPSULE PO SCH (06:47)
--- NOTE | 2018-05-26 07:41 | PROVIDER PROGRESS NOTE ---
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 She states that she does not feel strong enough to be on her way home today and complains of headaches, poor appetite and her oxygen requirement. She denies any new symptoms such as chest pain or pressure, increased shortness of breath, nausea, vomiting, diarrhea, or dizziness. Current Medications - Current Medications Current Medications: Active Medications Acetaminophen (Tylenol) 650 mg PO Q4HR PRN PRN Reason: Pain 1 to 4 Last Admin: 05/23/18 00:48 Dose: 650 mg Hydrocodone Bitart/Acetaminophen (Barbeau 5/325) 1 tab PO Q4HR PRN PRN Reason: PAIN Last Admin: 05/25/18 01:54 Dose: 1 tab Amoxicillin (Amoxil) 1,000 mg PO TID [facility] Last Admin: 05/26/18 06:47 Dose: 1,000 mg Aspirin (Ecotrin) 325 mg PO DAILY [facility] Last Admin: 05/25/18 08:43 Dose: 325 mg Atorvastatin Calcium (Lipitor) 40 mg PO QPM [facility] Last Admin: 05/25/18 21:25 Dose: 40 mg Diltiazem HCl (Cardizem Cd) 180 mg PO DAILY [facility] Last Admin: 05/25/18 08:44 Dose: 180 mg Docusate Sodium (Colace 250mg Capsule) 250 - 500 mg PO DAILY [facility] Last Admin: 05/25/18 08:58 Dose: Not Given Ergocalciferol (Vitamin D2) 50,000 unit PO WESA@0900 [facility] Last Admin: 05/24/18 09:19 Dose: Not Given Famotidine (Pepcid) 20 mg PO DAILY [facility] Last Admin: 05/25/18 08:44 Dose: 20 mg Furosemide (Lasix) 20 mg PO DAILY [facility] Last Admin: 05/25/18 08:48 Dose: 20 mg Levalbuterol HCl (Xopenex) 1.25 mg INH RTQ4H PRN PRN Reason: Wheezing Lisinopril (Zestril) 10 mg PO DAILY [facility] Last Admin: 05/25/18 08:45 Dose: 10 mg Magnesium Oxide (Mag Ox) 400 mg PO DAILYWM [facility] Last Admin: 05/25/18 08:42 Dose: 400 mg Metoprolol Succinate (Toprol Xl) 50 mg PO BID [facility] Last Admin: 05/25/18 21:25 Dose: 50 mg Ondansetron HCl (Zofran Odt) 4 mg TL Q4HR PRN PRN Reason: Nausea / Vomiting Oxymetazoline HCl (Afrin) 2 sprays SOPHIA BID [facility] Stop: 05/28/18 11:59 Last Admin: 05/25/18 21:26 Dose: Not Given Polyethylene Glycol (Miralax) 17 gm PO DAILY [facility] Last Admin: 05/25/18 08:41 Dose: 17 gm Rivaroxaban (Xarelto) 20 mg PO 1700 [facility] Last Admin: 05/25/18 17:29 Dose: 20 mg Saccharomyces Boulardii (Florastor) 500 mg PO BIDWM [facility] Last Admin: 05/25/18 17:29 Dose: 500 mg Senna (Senokot) 8.6 - 17.2 mg PO DAILY [facility] Last Admin: 05/25/18 08:58 Dose: Not Given Spironolactone (Aldactone) 25 mg PO DAILY [facility] Last Admin: 05/25/18 08:42 Dose: 25 mg Aspirin Chewable [[place] Aspirin] 81 mg PO DAILY 07/31/15 Meloxicam 7.5 mg PO BID PRN 10/26/15 Amlodipine Besylate 2.5 mg PO DAILY 05/22/18 Atorvastatin Calcium 40 mg PO QPM 05/22/18 Ergocalciferol [Vitamin D2] 50,000 units PO WESA@0900 05/22/18 Furosemide 20 mg PO DAILY 05/22/18 Lisinopril 20 mg PO DAILY 05/22/18 Spironolactone 25 mg PO DAILY 05/22/18 Objective - Vital Signs/Intake & Output Reviewed Vital Signs: Yes Vital Signs: Vital Signs x48h Temp Pulse Resp BP Pulse Ox 05/25/18 23:46 36.6 C 72 16 114/63 92 Intake & Output: Intake & Output 05/23/18 05/24/18 05/25/18 05/26/18 23:59 23:59 23:59 23:59 Intake Total 2020 1890 1790 100 Output Total 800 Balance 1220 1890 1790 100 - Objective General Appearance: positive: No acute distress, Alert Eyes Bilateral: positive: Normal inspection, PERRL Eyes: OU Conjunctivae pale ENT: positive: ENT inspection nml, Pharynx nml, No signs of dehydration Neck: positive: Nml inspection, Thyroid nml, No JVD Respiratory: positive: Chest non-tender, No respiratory distress, Other ( crackles through out) Cardiovascular: positive: No gallop, Irregularly irregular, JVD present, Systolic murmur Abdomen: positive: Non-tender, Nml bowel sounds, Other (obese, soft) Back: positive: Nml inspection Skin: positive: No rash, Warm, Dry Extremities: positive: Non-tender, Full ROM, Pedal edema (generalized, BLE), Joint swelling Neurologic/Psychiatric: positive: Oriented x3, CN's nml (2-12), Motor nml, Weakness, Sensory loss, Depressed mood/affect, Other - Lab Results Fish Bones: 05/25/18 05:00 05/25/18 05:00 ABX Reporting Has patient been on IV antibiotics over the past 48 hours?: No Assessment/Plan - Problem List (1) Cerebrovascular accident, embolic Impression: A head MRI shows small multifocal areas of right MCA embolic subacute ischemic stroke including posterior right insula, right parietal cortex at the angular gyrus. She is also found to have scattered white matter disease including small old suspected right internal capsule ischemic disease. Echo results show no evidence of an atrial shunt (PFO). Plan: Continue to manage uncontrolled atrial fibrillation. (2) Right lower lobe pneumonia Impression: A chest x-ray was completed shortly after admission for ongoing complaints of SOB, especially with activity. It showed a right low lobe infiltrate, so the patient was started on IV treatment including Azithromycin and Rocephin. A sputum culture was ordered, and still not obtained. Today, I have stopped the IV meds, and changed her to oral treatment with Amoxicillin 1000 mg TID, which will continue at home. Upon exam today, she still requires oxygen, and has been using it in place of her home CPAP. Plan: Respiratory care with IS, xopenex nebulizers PRN and continue treatment for PNA. (3) Atrial fibrillation Impression: The patient has a history of this and as per telemetry was reaching heart rates ~130 with ambulation. Today, with ambulation she is much improved and only reaches around 105, with a general heart rate of ~70's. She was started pm oral diltiazem that was increased to 180 mg this morning, and today Metoprolol succinate, with a continuation of telemetry. The patient no longer has profound shortness of breath and her pulse and blood pressures are stable. I have discontinued telemetry. She denies palpitations, chest pressure or pain and her activity has been better tolerated. Plan: Continue to monitor vital signs, telemetry and continue medications. Qualifiers: Atrial fibrillation type: chronic Qualified Code(s): I48.2 - Chronic atrial fibrillation (4) HTN (hypertension) Impression: The patient is prescribed lisinopril and furosemide at home, but it is unclear as to her compliance. Today her blood pressure is 125/66 with a heart rate in the 70's. She is being rate controlled using oral diltiazem, metoprolol and lisinopril at half her home dose. She is also receiving Spironolactone and lasix. Plan: Continue to monitor and continue medications. Qualifiers: Hypertension type: essential hypertension Qualified Code(s): I10 - Essential (primary) hypertension (5) Weakness Impression: The patient was found on her kitchen floor by her son, after she lost consciousness, was reported as appearing "Blue" and states that leading up to her fall, she felt very dizzy, and could see the room spinning and has no memory of the next course of events. The patient described her day as much improved in her physical abilities, and per nursing reports she is not thought to be ataxic. She tells me today that she adopted 2 children who are ages 7 & 12, of which she is the primary rn medicare. She is refusing any rehab. Plan: PT/OT to evaluate prior to D/c. Tentatively plan for discharge home tomorrow. (6) MIGUELITO (obstructive sleep apnea) Impression: The patient states that she has had this for a "while", and is compliant with her home device. Her echocardiogram shows evidence of ongoing MIGUELITO, and also may be influenced by her acute PNA. She has moderately abnormal right heart pressures with an elevated RVSP at rest of 55 mm Hg. She states that she does not have her home CPAP with her, but will ask her son to bring it in. Today, the patient's son has still not brought in her home unit. She has been on oxygen. Plan: Continue oxygen, especially for sleeping and await home unit. (7) Moderate to severe pulmonary hypertension Impression: Final echo results show moderately abnormal right heart pressures. The RVSP at rest is 55 mm Hg and she was started on Spironolactone upon admission at 25 mg PO daily and lasix. This is likely a consequence of her ongoing MIGUELITO, and acute PNA. Plan: Continue supplemental oxygen and monitor for side effects of spironolactone. (8) Headache Impression: The patient has had intermittent headaches and points to the top of her head and her forehead when asked the location. She does have some facial tenderness upon exam and increased erythema noted in the back of her throat. She states that she is a daily coffee drinker, and thinks this may be the cause of her THAKKAR. She is also no used to wearing supplemental oxygen, and this may be her sinuses, so I have prescribed a 3 day Afrin spray to be given BID. Plan: Continue to monitor headaches, and continue the 3-day course of Afrin.
--- NOTE | 2018-05-26 08:11 | Discharge Plan ---
Discharge Plan Disposition: Home, Self Care Condition: Good Prescriptions: Amoxicillin/Potassium Clav [Amox Tr-K Clv 875-125 mg Tab] 1 each PO BID 7 Days # 14 tablet Aspirin EC [Ecotrin] 325 mg PO DAILY #30 tablet diltiaZEM CD [Cardizem Cd] 180 mg PO DAILY #30 capsule Levalbuterol [Xopenex] 1.25 mg INH RTQ4H PRN #90 neb PRN Reason: Wheezing Metoprolol Succinate [Toprol Xl] 50 mg PO BID #60 tablet Rivaroxaban [Xarelto] 20 mg PO 1700 #60 tablet Saccharomyces Boulardii [Florastor] 250 mg PO BID #60 capsule Spironolactone 25 mg PO DAILY #30 tablet Diet: Cardiac Activity Restrictions: Activity as Tolerated Shower Restrictions: No Driving Restrictions: No Assistance Devices: Walker Weight Bearing: Full Weight Additional Instructions or Follow Up instructions: You had left sided weakness, loss of speech, and were felt to have stroke symptoms. Brain imaging showed embolic ischemia, which was likely a consequence of your atrial fibrillation. You were put on a blood thinner and given medications to control your heart rate. You needed oxygen, and complained of ongoing shortness of breath, so a chest x- ray was completed and showed a right sided pneumonia. You were given IV antibiotics, that hare now given orally. Continue these for 7 more days, with a probiotic to prevent diarrhea. An echocardiogram was completed and showed pulmonary hypertension, so you were started on spironolactone. To prevent further strokes, you need to be anti-coagulated, and keep good control of your atrial fibrillation. Please continue on this specific combination of medications, and establish care with a Data Analytics Architect. Please see your PCP within one week. No Smoking: If you smoke, Please STOP! Call for help. Follow-up with: Farnaz Foster ARNP [Primary Care Provider] -
[2018-05-26 08:38] VITALS: BP 145/88
[2018-05-26] MEDS: diltiaZEM CD 180 MG CAPSULE PO SCH (08:38)
[2018-05-26] MEDS: ASPIRIN EC 325 MG TABLET PO SCH (08:38)
[2018-05-26] MEDS: FUROSEMIDE 20 MG TABLET PO SCH (08:41)
[2018-05-26] MEDS: SENNA 8.6 MG TABLET PO SCH (08:41)
[2018-05-26] MEDS: FAMOTIDINE 20 MG TABLET PO SCH (08:42)
[2018-05-26] MEDS: METOPROLOL SUCCINATE 50 MG TABLET PO SCH (08:42)
[2018-05-26] MEDS: SACCHAROMYCES BOULARDII 250 MG CAPSULE PO SCH (08:43)
[2018-05-26] MEDS: MAGNESIUM OXIDE 400 MG TABLET PO SCH (08:43)
[2018-05-26] MEDS: LISINOPRIL 20 MG TABLET PO SCH ×2 (08:44→08:49)
[2018-05-26] MEDS: POLYETHYLENE GLYCOL 3350 17 GM PACKET PO SCH (08:45)
[2018-05-26] MEDS: DOCUSATE SODIUM 250 MG CAPSULE PO SCH (08:50)
[2018-05-26] MEDS: SPIRONOLACTONE 25 MG TABLET PO SCH (08:50)
[2018-05-26] MEDS: OXYMETAZOLINE NASAL SPRAY NAS SCH (08:56)
[2018-05-26] MEDS ORDERED: LISINOPRIL 20 MG TABLET PO SCH (12:15)
--- NOTE | 2018-05-26 12:15 | DISCHARGE SUMMARY ---
Discharge Summary Admit Date: 05/22/18 Discharge Date: 05/26/18 Discharging Provider: DAPHNE Christianson Code Status: Attempt Resuscitation Condition at Discharge: Good Discharge Disposition: 01 Home, Self Care - DIAGNOSES Admission Diagnoses: Transient cerebral ischemic attack, unspecified (G45.9) Unspecified atrial fibrillation (I48.91) Essential (primary) hypertension (I10) Weakness (R53.1) Hyperlipidemia, unspecified (E78.5) Discharge Diagnoses with Status of Each Condition: Cerebrovascular accident, embolic (I63.9) HTN (hypertension) (I10) Weakness (R53.1) Right lower lobe pneumonia (J18.1) Atrial fibrillation (I48.91) MIGUELITO (obstructive sleep apnea) (G47.33) Moderate to severe pulmonary hypertension (I27.20) - HPI History of Present Illness: Arti Baez is a 67-year old female with a past medical history of HTN, HLD, DVT , Hepatitis C, PTSD, and osteoarthritis. She presented to the ED via EMS with symptoms suggestive of a TIA. The patient reports that this morning she became so weak, lost her balance as she states that "the room was spinning", and was found slumped on the floor. Her son called 911, and there were no injures per EMS. The patient reports that she was having difficulty with word finding. The patient's son found that his mother could not rise her left hand. In one hour, her symptoms disappeared. The patient states that she had visited her salvage mend worker about one month, she had chemical stress test, which reveals she had "good heart" by her report. She is thought to be non-compliant and claims that she does not routinely take her medications. She denied chest pain, shortness of breath, headache, abdominal pain, nausea, vomiting, diarrhea, vision change, dysurina, or hematuria. She is found to have new onset of Afib in EKG. A head CT is unremarkable. The patient will be admitted to observation for TIA workup and new onset of Afib. - HOSPITAL COURSE Hospital Course: The following diagnoses were prevalent during this hospital stay: (1) Cerebrovascular accident, embolic A head MRI shows small multifocal areas of right MCA embolic subacute ischemic stroke including posterior right insula, right parietal cortex at the angular gyrus. She is also found to have scattered white matter disease including small old suspected right internal capsule ischemic disease. Echo results show no evidence of an atrial shunt (PFO). Continue to manage uncontrolled atrial fibrillation, an a prescription for Xarelto was sent to her pharmacy and is to be continued at home. (2) Right lower lobe pneumonia A chest x-ray was completed shortly after admission for ongoing complaints of SOB, especially with activity. It showed a right low lobe infiltrate, so the patient was started on IV treatment including Azithromycin and Rocephin. A sputum culture was ordered, and still not obtained. Today, I have stopped the IV meds, and changed her to oral treatment with Amoxicillin 1000 mg TID, which will continue at home. Upon exam today, she still requires oxygen, and has been using it in place of her home CPAP. The patient underwent respiratory care with IS, xopenex nebulizers PRN and continued her treatment for PNA. She will continue a short course of antibiotics at home with a probiotic. (3) Atrial fibrillation The patient has a history of this and as per telemetry was reaching heart rates ~130 with ambulation. Today, with ambulation she is much improved and only reaches around 105, with a general heart rate of ~70's. She was started pm oral diltiazem that was increased to 180 mg this morning, and today Metoprolol succinate, with a continuation of telemetry. The patient no longer has profound shortness of breath and her pulse and blood pressures are stable. She denied palpitations, chest pressure or pain and her activity has been better tolerated. She was started on Xarelto, which was sent to her pharmacy and is to be continued at home. (4) HTN (hypertension) The patient is prescribed lisinopril and furosemide at home, but it is unclear as to her compliance. Today her blood pressure is 125/66 with a heart rate in the 70's. She is being rate controlled using oral diltiazem, metoprolol and lisinopril at half her home dose. She is also receiving Spironolactone and lasix. These medications were to continue at home and her new prescriptions were sent to the pharmacy. (5) Weakness The patient was found on her kitchen floor by her son, after she lost consciousness, was reported as appearing "Blue" and states that leading up to her fall, she felt very dizzy, and could see the room spinning and has no memory of the next course of events. The patient described her day as much improved in her physical abilities, and per nursing reports she is not thought to be ataxic. She tells me today that she adopted 2 children who are ages 7 & 12, of which she is the primary care program resident. She is refusing any rehab and is likely to do well at home as per physical therapy notes. (6) MIGUELITO (obstructive sleep apnea) The patient states that she has had this for a "while", and is compliant with her home device. Her echocardiogram shows evidence of ongoing MIGUELITO, and also may be influenced by her acute PNA. She has moderately abnormal right heart pressures with an elevated RVSP at rest of 55 mm Hg. She states that she does not have her home CPAP with her, but will ask her son to bring it in. She has been on oxygen. A [id number] exam was completed and results were shared with the patient: The patient was found to be only 88% on room air with ambulation, and with the addition of 0.5-1L per nasal cannula her oxygen saturation increased to 98%. She was ambulated greater than 150 feet and again had a desaturation of 89% with ambulation, that improved to 95% on 0.5L per nasal cannula. I am ordering home oxygen 1L via nasal cannula to be worn with ambulation/activity. (7) Moderate to severe pulmonary hypertension Final echo results show moderately abnormal right heart pressures. The RVSP at rest is 55 mm Hg and she was started on Spironolactone upon admission at 25 mg PO daily and lasix. This is likely a consequence of her ongoing MIGUELITO, and acute PNA. The patient is to continue spironolactone and a prescription was sent to her pharmacy. (8) Headache The patient has had intermittent headaches and points to the top of her head and her forehead when asked the location. She does have some facial tenderness upon exam and increased erythema noted in the back of her throat. She states that she is a daily coffee drinker, and thinks this may be the cause of her THAKKAR. She is also no used to wearing supplemental oxygen, and this may be her sinuses, so I have prescribed a 3 day Afrin spray to be given BID. Disposition: The patient refused to stay for home oxygen set up. It is expected that her respiratory status will continue to improve as she will continue treatment of her pneumonia and return to using her home CPAP. She was medically stable and was transported via private car home with family. - ALLERGIES Allergies/Adverse Reactions: Allergies Allergy/AdvReac Type Severity Reaction Status Date / Time bupropion HCl * Allergy Severe Hallucinati Verified 05/22/18 08:48 [From Wellbutrin] ons - MEDICATIONS Home Medications: Ambulatory Orders Medication Instructions Recorded Confirmed Meloxicam 7.5 mg PO BID PRN 10/26/15 05/22/18 Atorvastatin Calcium 40 mg PO QPM 05/22/18 05/22/18 Ergocalciferol [Vitamin D2] 50,000 units PO WESA@0900 05/22/18 05/22/18 Furosemide 20 mg PO DAILY 05/22/18 05/22/18 Lisinopril 20 mg PO DAILY 05/22/18 05/22/18 Amoxicillin/Potassium Clav [Amox 1 each PO BID 7 Days #14 tablet 05/26/18 Tr-K Clv 875-125 mg Tab] Aspirin EC [Ecotrin] 325 mg PO DAILY #30 tablet 05/26/18 Levalbuterol [Xopenex] 1.25 mg INH RTQ4H PRN #90 neb 05/26/18 Metoprolol Succinate [Toprol Xl] 50 mg PO BID #60 tablet 05/26/18 Rivaroxaban [Xarelto] 20 mg PO 1700 #60 tablet 05/26/18 Saccharomyces Boulardii [Florastor] 250 mg PO BID #60 capsule 05/26/18 Spironolactone 25 mg PO DAILY #30 tablet 05/26/18 diltiaZEM CD [Cardizem Cd] 180 mg PO DAILY #30 capsule 05/26/18 - PHYSICAL EXAM AT DISCHARGE General Appearance: positive: No acute distress, Alert Eyes Bilateral: positive: Normal inspection, PERRL ENT: positive: ENT inspection nml, Pharynx nml, No signs of dehydration Neck: positive: Nml inspection, Thyroid nml, No JVD Respiratory: positive: Chest non-tender, No respiratory distress, Breath sounds nml, Other (diminished) Cardiovascular: positive: No gallop, Irregularly irregular, Systolic murmur, Decreased pulse(s) Peripheral Pulses: positive: 1+ Abdomen: positive: Non-tender, Nml bowel sounds, Other (rounded, soft) Back: positive: Nml inspection Skin: positive: No rash, Warm, Dry Extremities: positive: Non-tender, Pedal edema, Joint swelling Neurologic/Psychiatric: positive: Oriented x3, CN's nml (2-12), Motor nml, Sensation nml, Weakness, Depressed mood/affect Reflexes: Bicep (R): 3+, Bicep (L): 3+ (equal strength) - LABS Result Diagrams: 05/26/18 13:12 05/26/18 13:12 - DIAGNOSTIC IMAGING Diagnostic Imaging Results: Final report reviewed Diagnostic Imaging Results Comments: EXAM: MRI BRAIN WITHOUT CONTRAST EXAM DATE: 05/23/2018 11:33 AM. Impressions: 1. Small multifocal areas of right MCA territory embolic subacute ischemic stroke including posterior right insula, right parietal cortex at the angular gyrus. No hemorrhage or mass effect. 2. Mild superimposed scattered white matter disease including small old suspected right internal capsule ischemic disease. EXAM: CHEST RADIOGRAPHY EXAM DATE: 05/22/2018 10:02 PM. IMPRESSION: Patchy right basilar infiltrate. No overt congestive failure. ECHOCARDIOGRAM Read by David Rawls MD 1. LV EF of 45-50%. Paradoxical septal motion consistent with L BBB. 2. Mild RV enlargement. 3. Moderately abnormal right heart pressures with an RVSP at rest of 55 mmHg. 4. Negative for an atrial shunt. - FOLLOW UP Follow Up: Disposition: 01 Home, Self Care Condition: Good Prescriptions: Amoxicillin/Potassium Clav [Amox Tr-K Clv 875-125 mg Tab] 1 each PO BID 7 Days # 14 tablet Aspirin EC [Ecotrin] 325 mg PO DAILY #30 tablet diltiaZEM CD [Cardizem Cd] 180 mg PO DAILY #30 capsule Levalbuterol [Xopenex] 1.25 mg INH RTQ4H PRN #90 neb PRN Reason: Wheezing Metoprolol Succinate [Toprol Xl] 50 mg PO BID #60 tablet Rivaroxaban [Xarelto] 20 mg PO 1700 #60 tablet Saccharomyces Boulardii [Florastor] 250 mg PO BID #60 capsule Spironolactone 25 mg PO DAILY #30 tablet Diet: Cardiac Activity Restrictions: Activity as Tolerated Shower Restrictions: No Driving Restrictions: No Assistance Devices: Walker Weight Bearing: Full Weight Additional Instructions or Follow Up instructions: You had left sided weakness, loss of speech, and were felt to have stroke symptoms. Brain imaging showed embolic ischemia, which was likely a consequence of your atrial fibrillation. You were put on a blood thinner and given medications to control your heart rate. You needed oxygen, and complained of ongoing shortness of breath, so a chest x- ray was completed and showed a right sided pneumonia. You were given IV antibiotics, that hare now given orally. Continue these for 7 more days, with a probiotic to prevent diarrhea. An echocardiogram was completed and showed pulmonary hypertension, so you were started on spironolactone. To prevent further strokes, you need to be anti-coagulated, and keep good control of your atrial fibrillation. Please continue on this specific combination of medications, and establish care with a Staff Submarine Warfare Officer. Please see your PCP within one week. - TIME SPENT Time Spent in Discharge (Minutes): 55
[2018-05-26 13:35] LABS: BASOPHILS # (AUTO) 0.1 10^3/uL (0.0-0.1); BASOPHILS % (AUTO) 0.9 %; EOSINOPHILS # (AUTO) 0.1 10^3/uL (0.0-0.7); EOSINOPHILS % (AUTO) 1.2 %; HGB - HEMOGLOBIN 13.6 g/dL (12.0-16.0); LYMPHOCYTES % (AUTO) 33.5 %; MEAN CORPUSCULAR HEMOGLOBIN 29.9 pg (27.0-31.0); MEAN CORPUSCULAR HGB CONC 32.6 g/dL (32.0-36.0); MEAN CORPUSCULAR VOLUME 91.7 fL (81.0-99.0); MEAN PLATELET VOLUME 9.8 fL (7.9-10.8); MONOCYTES # (AUTO) 0.7 10^3/uL (0.0-1.0); NEUTROPHILS % (AUTO) 56.4 %; PLT - PLATELET COUNT 178 10^3/uL (130-450); RED BLOOD COUNT 4.55 10^6/uL (4.20-5.40); RED CELL DISTRIBUTION WIDTH 13.9 % (12.0-15.0); WHITE BLOOD COUNT 8.8 x10^3/uL (4.8-10.8)
[2018-05-26 14:03] LABS: ALBUMIN 3.5 g/dL (3.2-5.5); ALBUMIN/GLOBULIN RATIO 1.2 (1.0-2.2); BILIRUBIN,TOTAL 0.7 mg/dL (0.2-1.0); CREATININE 0.7 mg/dL (0.4-1.0); TOTAL PROTEIN 6.5 g/dL (6.7-8.2)
== END 2018-05-26 14:05 | disposition home or self-care (01) | DRG 64 ==
LOC: EDUNIT# → ED 08:38 → OBSVTOIN 14:26 → INTOOBSV 14:26 → OBS 14:26 → OBSVTOIN 05-23 14:20 → OBS 05-23 15:36 → MS3 05-23 15:36 → UNDODISIN 05-26 14:05
PROVIDERS: ADMIT Nurse Practitioner Gerontology; ATTEND Nurse Practitioner
DX: G45.9 Transient cerebral ischemic attack, unspecified (principal); I63.411 Cerebral infarction due to embolism of right middle cerebral artery; J18.9 Pneumonia, unspecified organism; I10 Essential (primary) hypertension; E78.5 Hyperlipidemia, unspecified; Z86.718 Personal history of other venous thrombosis and embolism; I48.91 Unspecified atrial fibrillation; R47.81 Slurred speech; G47.33 Obstructive sleep apnea (adult) (pediatric); I27.20 Pulmonary hypertension, unspecified; Z91.14 Patient's other noncompliance with medication regimen; R51 Headache; R53.1 Weakness
CPT/HCPCS: 36415; 70450; 70496; 70498; 70551; 71045; 80048; 80053; 81001; 81003; 83735; 83880; 84484; 85025; 87086; 93005; 93306; 96365; 96366; 96367; 96375; 99283; 99284

== ENCOUNTER 2018-07-02 11:26 | Outpatient (CLI) | payer MEDICARE, MEDICAID ==
[2018-07-02 20:49] LABS: CALCIUM 9.2 mg/dL (8.5-10.3)
== END 2018-07-02 11:27 | disposition home or self-care (01) ==
LOC: LAB.F 11:26
PROVIDERS: ATTEND Nurse Practitioner Family
DX: I10 Essential (primary) hypertension (principal); I27.20 Pulmonary hypertension, unspecified
CPT/HCPCS: 36415; 80048

== ENCOUNTER 2018-11-04 10:11 | Outpatient (CLI) | payer MEDICARE, MEDICAID ==
--- NOTE | 2018-11-05 12:04 | Mammography Report ---
Reason: MAMMOGRAPHIC SCREENING FOR BREAST CANCER Procedure Date: 11/04/2018 Accession Number: [id number] / [id number] Procedure: SIGRDI - Screening Mammo w/Moiz CPT Code: FULL RESULT: EXAM: Screening Mammo w/Moiz DATE: 11/04/2018 10:48 AM CLINICAL HISTORY: Routine screening TECHNIQUE: Bilateral CC and MLO views were obtained. COMPARISON: 09/03/2017, 11/30/2013, 12/09/2012 and 11/15/2011 FINDINGS: There are scattered fibroglandular densities. There has been no significant interval change. No suspicious masses, clustered microcalcifications, or regions of architectural distortion are identified. IMPRESSION: Benign findings RECOMMENDATION: Routine annual screening unless otherwise clinically indicated. BIRADS CATEGORY 2: Benign findings STANDARD QUALIFYING STATEMENTS: 1. This examination was not reviewed with the aid of Computer-Aided Detection (CAD). 2. A negative or benign imaging report should not delay biopsy if clinically suspicious findings are present. Consider surgical consultation if warrented. More than 5% of cancers are not identified by imaging. 3. Dense breasts may obscure an underlying neoplasm. 4. This examination was reviewed with the aid of 3D breast imaging (tomosynthesis).
== END 2018-11-04 10:12 | disposition home or self-care (01) ==
LOC: DI 10:11
PROVIDERS: ATTEND Nurse Practitioner Family
DX: Z12.31 Encounter for screening mammogram for malignant neoplasm of breast (principal)
CPT/HCPCS: 77063; 77067

== ENCOUNTER 2019-03-18 07:29 | Outpatient (CLI) | payer MEDICARE, MEDICAID ==
[2019-03-18 07:54] LABS: BASOPHILS # (AUTO) 0.1 10^3/uL (0.0-0.1); BASOPHILS % (AUTO) 1.1 %; EOSINOPHILS # (AUTO) 0.3 10^3/uL (0.0-0.7); EOSINOPHILS % (AUTO) 3.5 %; HGB - HEMOGLOBIN 12.7 g/dL (12.0-16.0); LYMPHOCYTES # (AUTO) 3.5 10^3/uL (1.5-3.5); LYMPHOCYTES % (AUTO) 42.8 %; MEAN CORPUSCULAR HEMOGLOBIN 30.4 pg (27.0-31.0); MEAN CORPUSCULAR HGB CONC 33.3 g/dL (32.0-36.0); MEAN CORPUSCULAR VOLUME 91.3 fL (81.0-99.0); MEAN PLATELET VOLUME 8.8 fL (7.9-10.8); MONOCYTES # (AUTO) 0.7 10^3/uL (0.0-1.0); NEUTROPHILS # (AUTO) 3.6 10^3/uL (1.5-6.6); NEUTROPHILS % (AUTO) 44.6 %; PLT - PLATELET COUNT 197 10^3/uL (130-450); RED BLOOD COUNT 4.17 10^6/uL (4.20-5.40); RED CELL DISTRIBUTION WIDTH 13.3 % (12.0-15.0); WHITE BLOOD COUNT 8.2 x10^3/uL (4.8-10.8)
[2019-03-18 08:03] LABS: ALBUMIN 4.2 g/dL (3.2-5.5); ALBUMIN/GLOBULIN RATIO 1.2 (1.0-2.2); ALKALINE PHOSPHATASE 39 IU/L (42-121); ALT ALANINE AMINOTRANSFERASE 17 IU/L (10-60); AST ASPARTATE AMINOTRANSFERASE 20 IU/L (10-42); BILIRUBIN,TOTAL 0.8 mg/dL (0.2-1.0); BUN - BLOOD UREA NITROGEN 38 mg/dL (6-20); CALCIUM 9.4 mg/dL (8.5-10.3); CARBON DIOXIDE - CO2 30 mmol/L (21-32); CHLORIDE 100 mmol/L (101-111); CHOLESTEROL 191 mg/dL; CREATININE 0.9 mg/dL (0.4-1.0); GFR - MDRD 62 (>89); GLUCOSE 109 mg/dL (70-100); HDL CHOLESTEROL 48 mg/dL; LDL CHOLESTEROL,CALCULATED 107 mg/dL; LDL/HDL RATIO 2.2 (<4.4); SODIUM 139 mmol/L (135-145); TOTAL PROTEIN 7.7 g/dL (6.7-8.2); VLDL CHOLESTEROL 36 mg/dL
== END 2019-03-18 07:30 | disposition home or self-care (01) ==
LOC: LAB 07:29
PROVIDERS: ATTEND Nurse Practitioner
DX: I10 Essential (primary) hypertension (principal); E78.5 Hyperlipidemia, unspecified; I67.9 Cerebrovascular disease, unspecified
CPT/HCPCS: 36415; 80053; 80061; 83721; 85025

== ENCOUNTER 2019-12-11 09:19 | Outpatient (CLI) | payer MEDICARE, MEDICAID ==
--- NOTE | 2019-12-22 11:02 | Mammography Report ---
Reason: ROUTINE MAMMO Procedure Date: 12/11/2019 Accession Number: [id number] / [id number] Procedure: SIGRID - Screening Mammo w/Moiz CPT Code: Final Report FULL RESULT: EXAM: Screening Mammo w/Moiz DATE: 12/11/2019 9:45 AM CLINICAL HISTORY: Screening encounter. TECHNIQUE: (B) - Bilateral CC and MLO views were obtained. COMPARISON: 11/04/2018 through 01/20/2010. PARENCHYMAL PATTERN: (A) - The breast(s) demonstrate(s) scattered fibroglandular densities. FINDINGS: In the left medial upper breast at the 10:00 position approximately 14 cm from the nipple is a isodense 5 mm nodule which is not clearly demonstrated on previous studies, potentially due to previous breast density. The finding should be further clarified with focused left breast ultrasound. There are no suspicious masses, calcifications, or areas of distortion of the right breast. IMPRESSION: Incomplete examination. BI-RADS category 0. RECOMMENDATION: (ADDUS) - Targeted ultrasound recommended. Left breast ultrasound. BI-RADS CATEGORY: (0) - Incomplete Examination - need additional evaluation. STANDARD QUALIFYING STATEMENTS: 1. This examination was not reviewed with the aid of Computer-Aided Detection (CAD). 2. A negative or benign imaging report should not preclude biopsy if clinically suspicious findings are present. 3. Dense breasts may obscure an underlying neoplasm. 4. This examination was reviewed with the aid of 3D breast imaging (tomosynthesis).
== END 2019-12-11 09:20 | disposition home or self-care (01) ==
LOC: DI 09:19
DX: Z12.31 Encounter for screening mammogram for malignant neoplasm of breast (principal); R92.8 Other abnormal and inconclusive findings on diagnostic imaging of breast
CPT/HCPCS: 77063; 77067

== ENCOUNTER 2019-12-29 09:29 | Outpatient (CLI) | payer MEDICARE, MEDICAID ==
--- NOTE | 2019-12-29 11:13 | Ultrasound Report ---
Reason: ABN MAMMO - LT SPEC VIEW US Procedure Date: 12/29/2019 Accession Number: [id number] / [id number] Procedure: US - Breast Unilateral Limited CPT Code: Final Report FULL RESULT: EXAM: Breast Unilateral Limited DATE: 12/29/2019 10:40 AM CLINICAL HISTORY: Diagnostic examination. The patient is recalled from screening for a left breast nodule. COMPARISON: 12/11/2019. TECHNIQUE: Targeted ultrasound was performed of the left breast in the area of clinical concern at 11:00 o'clock and 10 to 14 cm distance from the nipple. Color Doppler was employed as appropriate. FINDINGS: The area of interest is interrogated with grayscale and limited color Doppler ultrasound. The location of the mammographic nodule is additionally confirmed by identification of the bifurcating vessel adjacent to the mammographic finding on 3-D imaging. Sonographically a small typically benign appearing lymph node with preserved fatty hilum and less than 1 cm in short axis measurement is identified, this possibly accounts for the mammographic finding. No suspicious masses or architectural distortion are identified by ultrasound. IMPRESSION: Benign findings RECOMMENDATION: Recommend routine annual Screening mammography unless otherwise clinically indicated. BIRADS CATEGORY 2: Benign findings RADIA
== END 2019-12-29 09:30 | disposition home or self-care (01) ==
LOC: DI 09:29
PROVIDERS: ATTEND Internal Medicine
DX: R92.8 Other abnormal and inconclusive findings on diagnostic imaging of breast (principal)
CPT/HCPCS: 76642

== ENCOUNTER 2020-04-05 09:10 | Outpatient (CLI) | payer MEDICARE ==
[2020-04-05 09:21] LABS: HGB - HEMOGLOBIN 13.1 g/dL (12.0-16.0); MEAN CORPUSCULAR HEMOGLOBIN 30.8 pg (27.0-31.0); MEAN CORPUSCULAR HGB CONC 32.4 g/dL (32.0-36.0); MEAN CORPUSCULAR VOLUME 95.1 fL (81.0-99.0); RED BLOOD COUNT 4.25 10^6/uL (4.20-5.40); RED CELL DISTRIBUTION WIDTH 13.6 % (12.0-15.0); WHITE BLOOD COUNT 7.7 x10^3/uL (4.8-10.8)
[2020-04-05 10:08] LABS: ALBUMIN 4.2 g/dL (3.2-5.5); CALCIUM 9.1 mg/dL (8.5-10.3); CREATININE 0.7 mg/dL (0.4-1.0); PHOSPHORUS 3.8 mg/dL (2.5-4.6)
== END 2020-04-05 09:11 | disposition home or self-care (01) ==
LOC: LAB 09:10
PROVIDERS: ATTEND Internal Medicine Cardiovascular Disease
DX: I25.10 Atherosclerotic heart disease of native coronary artery without angina pectoris (principal)
CPT/HCPCS: 36415; 80069; 85027

== ENCOUNTER 2021-01-24 08:59 | Outpatient (CLI) | payer MEDICARE, OTHER ==
[2021-01-24 09:18] LABS: BASOPHILS # (AUTO) 0.1 10^3/uL (0.0-0.1); BASOPHILS % (AUTO) 0.9 %; EOSINOPHILS # (AUTO) 0.2 10^3/uL (0.0-0.7); EOSINOPHILS % (AUTO) 2.6 %; HGB - HEMOGLOBIN 13.2 g/dL (12.0-16.0); LYMPHOCYTES # (AUTO) 3.4 10^3/uL (1.5-3.5); LYMPHOCYTES % (AUTO) 38.5 %; MEAN CORPUSCULAR HEMOGLOBIN 29.6 pg (27.0-31.0); MEAN CORPUSCULAR HGB CONC 30.7 g/dL (32.0-36.0); MEAN CORPUSCULAR VOLUME 96.4 fL (81.0-99.0); MEAN PLATELET VOLUME 10.9 fL (7.9-10.8); MONOCYTES # (AUTO) 0.7 10^3/uL (0.0-1.0); MONOCYTES % (AUTO) 8.4 %; NEUTROPHILS # (AUTO) 4.4 10^3/uL (1.5-6.6); NEUTROPHILS % (AUTO) 49.4 %; PLT - PLATELET COUNT 195 10^3/uL (130-450); RED BLOOD COUNT 4.46 10^6/uL (4.20-5.40); RED CELL DISTRIBUTION WIDTH 13.7 % (12.0-15.0); WHITE BLOOD COUNT 8.8 x10^3/uL (4.8-10.8)
[2021-01-24 09:42] LABS: ALBUMIN 4.1 g/dL (3.2-5.5); ALBUMIN/GLOBULIN RATIO 1.3 (1.0-2.2); ALKALINE PHOSPHATASE 47 IU/L (42-121); ALT ALANINE AMINOTRANSFERASE 18 IU/L (10-60); AST ASPARTATE AMINOTRANSFERASE 17 IU/L (10-42); BILIRUBIN,TOTAL 0.8 mg/dL (0.2-1.0); BUN - BLOOD UREA NITROGEN 30 mg/dL (6-20); CALCIUM 9.6 mg/dL (8.5-10.3); CARBON DIOXIDE - CO2 31 mmol/L (21-32); CHLORIDE 103 mmol/L (101-111); CHOL/HDL RATIO 2.8 (<4.4); CHOLESTEROL 141 mg/dL; CREATININE 0.8 mg/dL (0.4-1.0); GFR - MDRD 71 (>89); GLUCOSE 102 mg/dL (70-100); HDL CHOLESTEROL 51 mg/dL; LDL CHOLESTEROL,CALCULATED 60 mg/dL; LDL/HDL RATIO 1.2 (<4.4); POTASSIUM 4.7 mmol/L (3.5-5.0); SODIUM 140 mmol/L (135-145); TOTAL PROTEIN 7.3 g/dL (6.7-8.2); TRIGLYCERIDES 149 mg/dL; VLDL CHOLESTEROL 30 mg/dL
[2021-01-24 10:25] LABS: THYROID STIMULATING HORMONE 2.75 uIU/mL (0.34-5.60)
== END 2021-01-24 09:00 | disposition home or self-care (01) ==
LOC: LAB 08:59
PROVIDERS: ATTEND Registered Nurse
DX: I10 Essential (primary) hypertension (principal); E78.5 Hyperlipidemia, unspecified; I27.20 Pulmonary hypertension, unspecified; I48.0 Paroxysmal atrial fibrillation; F32.9 Major depressive disorder, single episode, unspecified
CPT/HCPCS: 36415; 80053; 80061; 83721; 84443; 85025

== ENCOUNTER 2021-01-27 10:10 | Outpatient (CLI) | payer MEDICARE, OTHER | END 2021-01-27 10:11 | disposition home or self-care (01) | LOC: LAB.WCP 10:10 | PROVIDERS: ATTEND Internal Medicine Cardiovascular Disease | DX: I48.91 Unspecified atrial fibrillation (principal); I44.7 Left bundle-branch block, unspecified | CPT/HCPCS: 93005 ==

== ENCOUNTER 2021-03-02 14:09 | Outpatient (CLI) | payer MEDICARE ==
--- NOTE | 2021-03-02 15:32 | XRAY Report ---
PROCEDURE: Chest 2 View X-Ray INDICATIONS: ROBBINS TECHNIQUE: 2 view(s) of the chest. COMPARISON: None. FINDINGS: Surgical changes and devices: None. Lungs and pleura: No pleural effusions or pneumothorax. Lungs are clear. Mediastinum: Mediastinal contours are normal. Heart size is normal. Bones and chest wall: No suspicious bony abnormalities. Soft tissues appear unremarkable. IMPRESSION: No acute process. Reviewed by: Charito Reyes MD on 03/02/2021 3:31 PM PDT Approved by: Charito Reyes MD on 03/02/2021 3:31 PM PDT Station ID: [id number]
== END 2021-03-02 14:10 | disposition home or self-care (01) ==
LOC: DI 14:09
PROVIDERS: ATTEND Internal Medicine Cardiovascular Disease
DX: R06.09 Other forms of dyspnea (principal)

== ENCOUNTER 2021-03-09 09:09 | Outpatient (CLI) | payer MEDICARE ==
[2021-03-09 09:39] LABS: CALCIUM 9.5 mg/dL (8.5-10.3); CREATININE 0.9 mg/dL (0.4-1.0); POTASSIUM 4.4 mmol/L (3.5-5.0)
== END 2021-03-09 09:10 | disposition home or self-care (01) ==
LOC: LAB 09:09
PROVIDERS: ATTEND Internal Medicine Cardiovascular Disease
DX: I10 Essential (primary) hypertension (principal)
CPT/HCPCS: 36415; 80048; 83880

== ENCOUNTER 2021-03-29 09:07 | Outpatient (CLI) | payer MEDICARE | END 2021-03-29 09:08 | disposition home or self-care (01) | LOC: DI 09:07 | PROVIDERS: ATTEND Internal Medicine Cardiovascular Disease | DX: I51.7 Cardiomegaly (principal) | CPT/HCPCS: 93306 ==

== ENCOUNTER 2021-12-21 15:23 | Emergency (ER) | payer MEDICARE ==
--- NOTE | 2021-12-21 15:52 | ED Physician Documentation ---
PD HPI CHEST PAIN - Stated complaint Stated Complaint: AFIB - Chief complaint Chief Complaint: Cardiac - History obtained from History obtained from: Patient - History of Present Illness Timing - onset: How many days ago (several) Timing - onset during: Light activity Timing - duration: Days Timing - details: Gradual onset, Still present, Waxing and waning (she has felt some dyspnea with activity and lightheaded at times, with HR feeling fast. Feels similar to prior atrial fib. She called her Cardiology office and told to go to walk in for rhythm check. Seen at Walk in and sent to ER due to atrial fib. HR not that fast there, was 110-120. BP okay.) Quality: Tightness (feeling of some chest tightness and dyspnea, weak with slight activity for few days. Has taken her meds regularly. No recent illness.) Location: Substernal Worsened by: Exertion Associated symptoms: Shortness of air, Feeling faint / dizzy, General Weakness, Palpitations. No: Diaphoresis, Nausea Similar symptoms before: Diagnosis (similar to atrial fib int he past, about 2 years ago.) Recently seen: Not recently seen Review of Systems Constitutional: denies: Fever, Chills Nose: denies: Rhinorrhea / runny nose, Congestion Throat: denies: Sore throat Cardiac: reports: Palpitations. denies: Chest pain / pressure, Pedal edema Respiratory: reports: Dyspnea. denies: Cough : denies: Dysuria, Frequency Musculoskeletal: denies: Extremity swelling Neurologic: reports: Generalized weakness Immunocompromised: denies: Immunocompromised PD PAST MEDICAL HISTORY - Past Medical History Cardiovascular: Hypertension, High cholesterol, Deep vein thrombosis, Atrial fibrillation (with cardioversion 2 years ago and on Sotolol and Eliquis, stable since that time. ) Respiratory: None Neuro: None Endocrine/Autoimmune: None GI: Hepatitis : None HEENT: None Psych: Post traumatic stress disorder Musculoskeletal: None, Osteoarthritis Derm: None - Past Surgical History Past Surgical History: Yes General: Colonoscopy, Other Ortho: Other HEENT: Other - Present Medications Home Medications: Ambulatory Orders Medication Instructions Recorded Confirmed Meloxicam 7.5 mg PO BID PRN 10/26/15 05/22/18 Atorvastatin Calcium 40 mg PO QPM 05/22/18 05/22/18 Ergocalciferol [Vitamin D2] 50,000 units PO WESA@0900 05/22/18 05/22/18 Furosemide 20 mg PO DAILY 05/22/18 05/22/18 lisinopriL [Lisinopril] 20 mg PO DAILY 05/22/18 05/22/18 Amoxicillin/Potassium Clav [Amox 1 each PO BID 7 Days #14 tablet 05/26/18 Tr-K Clv 875-125 mg Tab] Aspirin EC [Ecotrin] 325 mg PO DAILY #30 tablet 05/26/18 Levalbuterol [Xopenex] 1.25 mg INH RTQ4H PRN #90 neb 05/26/18 Metoprolol Succinate [Toprol Xl] 50 mg PO BID #60 tablet 05/26/18 Rivaroxaban [Xarelto] 20 mg PO 1700 #60 tablet 05/26/18 Saccharomyces Boulardii [Florastor] 250 mg PO BID #60 capsule 05/26/18 Spironolactone 25 mg PO DAILY #30 tablet 05/26/18 diltiaZEM CD [Cardizem Cd] 180 mg PO DAILY #30 capsule 05/26/18 - Allergies Allergies/Adverse Reactions: Allergies Allergy/AdvReac Type Severity Reaction Status Date / Time bupropion HCl * Allergy Severe Hallucinati Verified 12/21/21 15:34 [From Wellbutrin] ons - Social History Does the pt smoke?: No Smoking Status: Never smoker Does the pt drink ETOH?: No - Immunizations Immunizations are current?: Yes - POLST Patient has POLST: No POLST Status: Full Code PD ED PE NORMAL - Vitals Vital signs reviewed: Yes - General General: Alert and oriented X 3, No acute distress, Well developed/nourished - HEENT HEENT: Pharynx benign - Neck Neck: Supple, no meningeal sign, No adenopathy - Cardiac Cardiac: No: RRR (irregular and tachycardic) - Respiratory Respiratory: Clear bilaterally - Abdomen Abdomen: Soft, Non tender - Derm Derm: Normal color, Warm and dry - Extremities Extremities: No edema, No calf tenderness / cord - Neuro Neuro: Alert and oriented X 3, No motor deficit, Normal speech Results - Vitals Vitals: Vital Signs - 24 hr 12/21/21 12/21/21 12/21/21 15:34 16:48 17:44 Temperature 36.5 C Heart Rate 111 H 105 H 115 H Respiratory 20 20 25 H Rate Blood Pressure 160/100 H 122/75 146/104 H O2 Saturation 96 97 98 12/21/21 12/21/21 12/21/21 17:54 18:01 18:12 Temperature Heart Rate 84 80 125 H Respiratory 21 20 20 Rate Blood Pressure 132/101 H 126/80 O2 Saturation 98 95 12/21/21 12/21/21 18:37 18:38 Temperature 37.1 C 37.1 C Heart Rate 60 60 Respiratory 17 17 Rate Blood Pressure 120/85 H 120/85 H O2 Saturation 98 98 Oxygen O2 Source Room air - EKG (time done) 15:31 Rate: Rate (enter#) (111) Rhythm: Atrial fibrillation Intervals: Wide QRS QRS: LVH Compare to prior EKG: Unchanged from prior EKG (prior had same morphology but was NSR.) 18:06 Rate: Rate (enter#) (72) Rhythm: NSR (with PVC and few beats runs of atrial fib. ) Intervals: Wide QRS QRS: LVH Compare to prior EKG: Changed from prior EKG (now NSR with ectopy) - Labs Labs: Laboratory Tests 12/21/21 12/21/21 12/21/21 16:24 16:24 16:24 WBC 10.0 RBC 4.39 Hgb 13.0 Hct 42.0 MCV 95.7 MCH 29.6 MCHC 31.0 L RDW 13.8 Plt Count 209 MPV 11.4 H Neut # (Auto) 5.2 Lymph # (Auto) 3.8 H Polk # (Auto) 0.7 Eos # (Auto) 0.2 Baso # (Auto) 0.1 Absolute Nucleated RBC 0.00 Nucleated RBC % 0.0 Sodium 141 Potassium 4.2 Chloride 102 Carbon Dioxide 27 Anion Gap 12.0 BUN 19 Creatinine 1.0 Estimated GFR (MDRD) 55 L Glucose 100 Calcium 9.6 Magnesium 2.0 Total Bilirubin 1.1 H AST 41 ALT 33 Alkaline Phosphatase 62 B-Natriuretic Peptide Total Protein 7.5 Albumin 4.3 Globulin 3.2 Albumin/Globulin Ratio 1.3 Lipase 53 H TSH 2.27 12/21/21 16:24 WBC RBC Hgb Hct MCV MCH MCHC RDW Plt Count MPV Neut # (Auto) Lymph # (Auto) Polk # (Auto) Eos # (Auto) Baso # (Auto) Absolute Nucleated RBC Nucleated RBC % Sodium Potassium Chloride Carbon Dioxide Anion Gap BUN Creatinine Estimated GFR (MDRD) Glucose Calcium Magnesium Total Bilirubin AST ALT Alkaline Phosphatase B-Natriuretic Peptide 357 H Total Protein Albumin Globulin Albumin/Globulin Ratio Lipase TSH Procedures - Procedural sedation Sedation prep: Informed consent, Time out completed, Last meal (9 am this morning), PE performed, ASA 2 - mild disease, IV O2 monitor, ET CO2 monitor, RT present Sedation Medications: propofol Mallampati classification: I Patient status during sedation: Drowsy, Responds to tactile, Vitals remained stable, Recovered uneventfully Sedation recovery: Recovered uneventfully, Back to baseline Time in sedation (Minutes): 4 - Cardioversion 1 Indication: Tachyarrhythmia Risks, benefits, alternatives explained to: Pt Prep: IV, O2, monitoring manager, Pulse ox, Airway equip CS via: Pads, AP approach Sync: Biphasic, 200j Post cardioversion rhythm: NSR Performed by: ED MD MEDICAL DECISION MAKING - ED course Complexity details: reviewed results, re-evaluated patient (Post cardioversion, patient having sinus rhythm with PVCs, and some brief atrial fib bursts. This calmed to sinus with dose metoprolol. HR NSR 60 at discharge.), considered differential (recurrent atrial fib, had not had it for couple of years. Has dyspnea/lightheaded with slight activity, so reasonable to go for rate/rhythm control.), d/w patient, d/w application packaging consultant (Talked with Dr. Zhang, who suggested cardioversion in ER and office follow up. ) - Critical Care Time(min): 30 Time Includes: Direct patient care, Reassess patient, Coordinate care, Medical consult Data interpretation: Labs, Pulse ox, CXR Procedures excluded from critical care time: EKG, See progress note (cardioversion) Departure - Departure Disposition: 01 Home, Self Care Clinical Impression: Paroxysmal atrial fibrillation with rapid ventricular response, Atrial fibrillation status post cardioversion Condition: Stable Record reviewed to determine appropriate education?: Yes Instructions: ED Cardioversion Electrical Follow-Up: Emilia Narvaez ARNP [Primary Care Provider] - Salvador Zhang MD [Provider Admit Priv/Credential] - Comments: Continue your current medications. Stay well-hydrated. Light activity for the next day or 2. Follow-up with Dr. Zhang next week, call for an appointment. Return if worse symptoms. Discharge Date/Time: 12/21/21 18:38
[2021-12-21] MEDS ORDERED: METOPROLOL 5 MG/5 ML VIAL IVP STA ×2 (16:13→18:03)
[2021-12-21 16:32] LABS: BASOPHILS # (AUTO) 0.1 10^3/uL (0.0-0.1); EOSINOPHILS # (AUTO) 0.2 10^3/uL (0.0-0.7); EOSINOPHILS % (AUTO) 1.7 %; LYMPHOCYTES # (AUTO) 3.8 10^3/uL (1.5-3.5); MEAN CORPUSCULAR HEMOGLOBIN 29.6 pg (27.0-31.0); MEAN CORPUSCULAR VOLUME 95.7 fL (81.0-99.0); MEAN PLATELET VOLUME 11.4 fL (7.9-10.8); MONOCYTES # (AUTO) 0.7 10^3/uL (0.0-1.0); MONOCYTES % (AUTO) 6.9 %; NEUTROPHILS # (AUTO) 5.2 10^3/uL (1.5-6.6); NEUTROPHILS % (AUTO) 52.1 %; PLT - PLATELET COUNT 209 10^3/uL (130-450); RED BLOOD COUNT 4.39 10^6/uL (4.20-5.40); RED CELL DISTRIBUTION WIDTH 13.8 % (12.0-15.0)
[2021-12-21 16:46] LABS: ALBUMIN 4.3 g/dL (3.2-5.5); ALBUMIN/GLOBULIN RATIO 1.3 (1.0-2.2); BILIRUBIN,TOTAL 1.1 mg/dL (0.2-1.0); CALCIUM 9.6 mg/dL (8.5-10.3); POTASSIUM 4.2 mmol/L (3.5-5.0); TOTAL PROTEIN 7.5 g/dL (6.7-8.2)
--- NOTE | 2021-12-21 16:47 | XRAY Report ---
PROCEDURE: Chest 1 View X-Ray INDICATIONS: chest pain TECHNIQUE: One view of the chest was acquired. COMPARISON: 03/02/2021 FINDINGS: Surgical changes and devices: None. Lungs and pleura: No pleural effusions or pneumothorax. Lungs are clear. Mediastinum: Mediastinal contours appear normal. Heart size is normal. Bones and chest wall: No suspicious bony lesions. Overlying soft tissues appear unremarkable. IMPRESSION: No acute cardiopulmonary abnormality. Reviewed by: Josué Treviño MD on 12/21/2021 4:46 PM [facility] Approved by: Josué Treviño MD on 12/21/2021 4:46 PM [facility] Station ID: [id number]
[2021-12-21] MEDS ORDERED: PROPOFOL 200 MG/20 ML VIAL IVP STA (17:23)
[2021-12-21 18:38] VITALS: BP 120/85
== END 2021-12-21 18:38 | disposition home or self-care (01) ==
LOC: ED 15:23
DX: I48.0 Paroxysmal atrial fibrillation (principal); Z79.01 Long term (current) use of anticoagulants; I10 Essential (primary) hypertension
CPT/HCPCS: 36415; 80053; 83690; 83735; 83880; 84443; 85025; 92960; 93005; 94770; 99291

== ENCOUNTER 2022-12-18 11:24 | Outpatient (CLI) | payer MEDICARE ==
--- NOTE | 2022-12-19 12:29 | Mammography Report ---
BILATERAL DIGITAL SCREENING MAMMOGRAM 3D/2D: 12/18/2022 CLINICAL: Routine screening. Comparison is made to exams dated: 12/29/2019 ultrasound, 12/11/2019 mammogram, 11/04/2018 mammogram, a nd 09/03/2017 mammogram - [facility]. There are scattered areas of fibroglandular density in both breasts (category b / 25%-50% glandular t issue). No significant masses, calcifications, or other findings are seen in either breast. There has been no significant interval change. IMPRESSION: NEGATIVE There is no mammographic evidence of malignancy. A 1 year screening mammogram is recommended. Based on the Tyrer Cuzick model (a risk assessment model) the patients lifetime risk is 3.1% and her 10 year risk is 2.3%. According to the ACR, ACS, and NCCN guidelines, an annual breast MRI exam palma g with mammogram is recommended if the patients lifetime risk is 20% or greater. This exam was interpreted at Station ID: [id number]. NOTE: For mammograms, a report in lay terms will be sent to the patient. Approximately 15% of breast malignancies will not be visualized mammographically. In the management of a palpable breast mass, a negative mammogram must not discourage biopsy of a clinically suspicious lesion. Electronically Signed By: Tray Han M.D. [facility]/artie:12/18/2022 13:15:41 letter sent: No_Letter ACR BI-RADS Category 1: Negative 3341F PARENCHYMAL PATTERN: (A) - The breast(s) demonstrate(s) scattered fibroglandular densities. BI-RADS CATEGORY: (1) - 1 RECOMMENDATION: (ANNUAL) - Recommend routine annual screening mammography. [id number] 1 year screening LATERALITY: (B)
== END 2022-12-18 11:25 | disposition home or self-care (01) ==
LOC: DI.N 11:24
PROVIDERS: ATTEND Registered Nurse
DX: Z12.31 Encounter for screening mammogram for malignant neoplasm of breast (principal)

== ENCOUNTER 2023-09-30 11:15 | Outpatient (CLI) | payer MEDICARE ==
[2023-09-30 11:30] LABS: BASOPHILS # (AUTO) 0.1 10^3/uL (0.0-0.1); EOSINOPHILS # (AUTO) 0.2 10^3/uL (0.0-0.7); EOSINOPHILS % (AUTO) 2.4 %; HCT - HEMATOCRIT 43.5 % (37.0-47.0); HGB - HEMOGLOBIN 13.4 g/dL (12.0-16.0); LYMPHOCYTES % (AUTO) 42.9 %; MEAN CORPUSCULAR HEMOGLOBIN 29.2 pg (27.0-31.0); MEAN CORPUSCULAR HGB CONC 30.8 g/dL (32.0-36.0); MEAN CORPUSCULAR VOLUME 94.8 fL (81.0-99.0); MEAN PLATELET VOLUME 10.1 fL (7.9-10.8); MONOCYTES # (AUTO) 0.7 10^3/uL (0.0-1.0); MONOCYTES % (AUTO) 7.4 %; NEUTROPHILS # (AUTO) 4.3 10^3/uL (1.5-6.6); NEUTROPHILS % (AUTO) 46.2 %; PLT - PLATELET COUNT 221 10^3/uL (130-450); RED BLOOD COUNT 4.59 10^6/uL (4.20-5.40); RED CELL DISTRIBUTION WIDTH 13.1 % (12.0-15.0); WHITE BLOOD COUNT 9.3 x10^3/uL (4.8-10.8)
[2023-09-30 11:46] LABS: ALBUMIN 4.5 g/dL (3.2-5.5); ALBUMIN/GLOBULIN RATIO 1.3 (1.0-2.2); ALKALINE PHOSPHATASE 54 IU/L (42-121); ALT ALANINE AMINOTRANSFERASE 26 IU/L (10-60); AST ASPARTATE AMINOTRANSFERASE 27 IU/L (10-42); BILIRUBIN,TOTAL 0.9 mg/dL (0.2-1.0); BUN - BLOOD UREA NITROGEN 20 mg/dL (6-20); CALCIUM 10.1 mg/dL (8.5-10.3); CARBON DIOXIDE - CO2 34 mmol/L (21-32); CHLORIDE 101 mmol/L (101-111); CHOL/HDL RATIO 2.8 (<4.4); CHOLESTEROL 176 mg/dL; CREATININE 0.9 mg/dL (0.6-1.3); GFR - MDRD 61 (>89); GLUCOSE 103 mg/dL (74-104); HDL CHOLESTEROL 62 mg/dL; LDL CHOLESTEROL,CALCULATED 73 mg/dL; LDL/HDL RATIO 1.2 (<4.4); POTASSIUM 4.4 mmol/L (3.5-4.5); SODIUM 139 mmol/L (135-145); TRIGLYCERIDES 203 mg/dL (48-352); VLDL CHOLESTEROL 41 mg/dL
[2023-09-30 12:02] LABS: THYROID STIMULATING HORMONE 2.72 uIU/mL (0.34-5.60)
== END 2023-09-30 11:16 | disposition home or self-care (01) ==
LOC: LAB 11:15
PROVIDERS: ATTEND Registered Nurse
DX: Z13.220 Encounter for screening for lipoid disorders (principal); Z79.899 Other long term (current) drug therapy; Z13.29 Encounter for screening for other suspected endocrine disorder
CPT/HCPCS: 36415; 80053; 80061; 83721; 84443; 85025

== ENCOUNTER 2024-01-16 10:44 | Outpatient (CLI) | payer MEDICARE | END 2024-01-16 10:45 | disposition home or self-care (01) | LOC: RT 10:44 | PROVIDERS: ATTEND Internal Medicine Cardiovascular Disease | DX: I48.91 Unspecified atrial fibrillation (principal); Z79.899 Other long term (current) drug therapy | CPT/HCPCS: 93005 ==

== ENCOUNTER 2024-01-24 13:16 | Outpatient (CLI) | payer MEDICARE ==
[2024-01-24] MEDS ORDERED: ALBUTEROL 1 PUFF INH STA (15:28)
== END 2024-01-24 13:17 | disposition home or self-care (01) ==
LOC: RT 13:16
PROVIDERS: ATTEND Family Medicine
DX: R06.09 Other forms of dyspnea (principal); I27.20 Pulmonary hypertension, unspecified
CPT/HCPCS: 94060; 94729

== ENCOUNTER 2024-02-20 07:55 | Outpatient (CLI) | payer MEDICARE | END 2024-02-20 07:56 | disposition home or self-care (01) | LOC: DI 07:55 | PROVIDERS: ATTEND Internal Medicine Cardiovascular Disease | DX: I07.1 Rheumatic tricuspid insufficiency (principal); I48.91 Unspecified atrial fibrillation; I27.20 Pulmonary hypertension, unspecified | CPT/HCPCS: 93307 ==

== ENCOUNTER 2024-07-09 15:40 | Emergency (ER) | payer MEDICARE ==
--- NOTE | 2024-07-09 16:26 | ED Physician Documentation ---
History of Present Illness - Stated complaint Stated Complaint: SOA - Chief complaint Chief Complaint: Resp - History obtained from History obtained from: Patient - History of Present Illness Timing: Prior to arrival - Additonal information Additional information: Patient is a 73-year-old female with past medical history of atrial fibrillation, hypertension, hyperlipidemia, history of CVA, history of MIGUELITO. Patient is on Xarelto and metoprolol at home for history of atrial fibrillation. She has been compliant with these medications. She notes she saw her PCP yesterday and was told to come to the emergency department at the time as she was having worsening shortness of breath for the last few weeks. She notes she did not want to come yesterday so she decided to come today. Patient notes she has occasional worsening wheezing. She is on 2 L nasal cannula and has history of COPD and pulmonary hypertension. She denies needing to increase her nasal ca nnula oxygen recently she notes occasional chest tightness with her symptoms but denies any stabbing chest pain or pressure. She denies missing any doses of her Eliquis. She has some worsening lower leg swelling but has been compliant with her home Lasix at home. She tries to keep her legs elevated but does not wear compression stockings. She denies any unilateral leg swelling. No history of DVTs or PEs. No recent travel. She follows with pulmonology in the outpatient setting as well for her chronic shortness of breath. She notes her symptoms worsen when she gets up to play with her grandkids who she watches during the day. PD PAST MEDICAL HISTORY - Past Medical History Cardiovascular: Hypertension, High cholesterol, Deep vein thrombosis, Atrial fibrillation Respiratory: None Neuro: None Endocrine/Autoimmune: None GI: Hepatitis : None HEENT: None Psych: Post traumatic stress disorder Musculoskeletal: None, Osteoarthritis Derm: None - Past Surgical History Past Surgical History: Yes General: Colonoscopy, Other Ortho: Other HEENT: Other - Present Medications Home Medications: Ambulatory Orders Medication Instructions Recorded Confirmed Meloxicam 7.5 mg PO BID PRN 10/26/15 05/22/18 Atorvastatin Calcium 40 mg PO QPM 05/22/18 05/22/18 Ergocalciferol [Vitamin D2] 50,000 units PO WESA@0900 05/22/18 05/22/18 Furosemide 20 mg PO DAILY 05/22/18 05/22/18 lisinopriL [Lisinopril] 20 mg PO DAILY 05/22/18 05/22/18 Amoxicillin/Potassium Clav [Amox 1 each PO BID 7 Days #14 tablet 05/26/18 Tr-K Clv 875-125 mg Tab] Aspirin EC [Ecotrin] 325 mg PO DAILY #30 tablet 05/26/18 Levalbuterol [Xopenex] 1.25 mg INH RTQ4H PRN #90 neb 05/26/18 Metoprolol Succinate [Toprol Xl] 50 mg PO BID #60 tablet 05/26/18 Rivaroxaban [Xarelto] 20 mg PO 1700 #60 tablet 05/26/18 Saccharomyces Boulardii [Florastor] 250 mg PO BID #60 capsule 05/26/18 Spironolactone 25 mg PO DAILY #30 tablet 05/26/18 diltiaZEM CD [Cardizem Cd] 180 mg PO DAILY #30 capsule 05/26/18 - Allergies Allergies/Adverse Reactions: Allergies Allergy/AdvReac Type Severity Reaction Status Date / Time bupropion HCl * Allergy Severe Hallucinati Verified 12/21/21 15:34 [From Wellbutrin] ons - Social History Does the pt smoke?: No Smoking Status: Never smoker Does the pt drink ETOH?: No - Immunizations Immunizations are current?: Yes - POLST Patient has POLST: No POLST Status: Full Code PD ED PE NORMAL - Vitals Vital signs reviewed: Yes - General General: Alert and oriented X 3 - HEENT HEENT: Atraumatic - Neck Neck: Supple, no meningeal sign - Cardiac Cardiac: RRR, No murmur, No gallop, No rub, Strong equal pulses - Respiratory Respiratory: No respiratory distress, Other (Patient speaking in full sentences in no acute respiratory distress.) - Female Female : Deferred - Rectal Rectal: Deferred - Back Back: No CVA TTP - Derm Derm: Normal color, Warm and dry, No rash - Extremities Extremities: No deformity, Other (Mild bilateral pitting edema 2+ appreciated.) - Neuro Neuro: Alert and oriented X 3 Eye Opening: Spontaneous Motor: Obeys Commands Verbal: Oriented GCS Score: 15 Results - Vitals Vitals: Vital Signs - 24 hr 07/09/24 07/09/24 07/09/24 15:42 17:46 17:54 Temperature 36.8 C Heart Rate 70 77 Respiratory 18 20 Rate Blood Pressure 158/88 H 180/118 H 162/85 H O2 Saturation 95 99 If not protocol 2 : Oxygen Flow, liters/minute 07/09/24 18:51 Temperature Heart Rate 69 Respiratory 18 Rate Blood Pressure 185/109 H O2 Saturation 95 If not protocol : Oxygen Flow, liters/minute Oxygen O2 Source Nasal cannula Oxygen Flow Rate 2 - EKG (time done) 1604 EKG releavant findings:: EKG personally interpreted by author of this note. Relevant findings are: Rate: Rate (enter#) Hutchinson: LAD Intervals: Prolonged MO QRS: Normal (Wide QRS) Ischemia: Normal ST segments Compare to prior EKG: Unchanged from prior EKG (Compared to EKG on 01/16/24) Computer interpretation: Agree with computer - Labs Labs: Laboratory Tests 07/09/24 07/09/24 07/09/24 16:25 16:29 16:39 WBC 9.3 RBC 4.20 Hgb 12.6 Hct 40.5 MCV 96.4 MCH 30.0 MCHC 31.1 L RDW 13.3 Plt Count 199 MPV 10.7 Neut # (Auto) 5.2 Lymph # (Auto) 3.1 Archuleta # (Auto) 0.7 Eos # (Auto) 0.2 Baso # (Auto) 0.1 Absolute Nucleated RBC 0.00 Nucleated RBC % 0.0 Sodium 140 Potassium 4.0 Chloride 106 Carbon Dioxide 29 Anion Gap 5.0 L BUN 18 Creatinine 0.9 Estimated GFR (MDRD) 61 L Glucose 86 Calcium 9.6 Total Bilirubin 0.7 AST 22 ALT 24 Alkaline Phosphatase 41 L Troponin I High Sens 4.1 B-Natriuretic Peptide 126 H Total Protein 7.2 Albumin 4.1 Globulin 3.1 Albumin/Globulin Ratio 1.3 - Rads (name of study) Chest X-ray Relevant Findings:: EMP independent interpretation of test (Chest x-ray shows no acute cardiopulmonary process.) PD Medical Decision Making - ED course Complexity details: reviewed old records, reviewed results, re-evaluated patient ED course: Patient is a 73-year-old female presenting to the emergency department with shortness of breath symptoms have been going on intermittently for a month. She made an appointment with her PCP few months ago and at the appointment discussed worsening shortness of breath that she was told by her PCP to come to the emergency department yesterday but she decided to come today. She notes some tightness to her chest but no specific chest pain. She denies any dizziness or lightheadedness with her symptoms. She has been compliant with her home medications including Xarelto and metoprolol for her history of atrial fibrillation. She feels she may be going in and out of her atrial fibrillation but it has been going on for a few weeks now. She notes worsening lower leg swelling but does not wear compression stockings she does try to keep her legs elevated and has been compliant with her Lasix at home. Vitals are stable on arrival. BNP is only slightly elevated chest x-ray shows no signs of fluid overload. EKG shows left bundle branch block but this is not new from previous EKG patient EKG shows similar findings on 01/16/2024. No concerning findings for pneumonia on chest x-ray. Troponin is within normal range. Patient was given a breathing treatment while she was here to see if this will help her symptoms she has mild improvement but states her symptoms are not significantly worse than they have been in the last month. Patient does have a [employer] intelligence officer chief that she follows with an average. Discussed with patient given reassuring and stable findings here with no acute changes no intervention at this time. She will remain on her home medications and instructed to return with any worsening shortness of breath dizziness lower leg swelling or chest pain.Patient instructed to return with any new or worsening symptoms.Patient agreeable with this plan and has plans to follow-up with her [employer] officer chief later this month. Departure - Departure Disposition: 01 Home, Self Care Clinical Impression: Shortness of breath at rest, Severe chronic obstructive pulmonary disease Condition: Fair Instructions: ED COPD Flare, ED Dyspnea Shortness of Breath Comments: You were seen here in the emergency department for your shortness of breath your workup here showed no acute findings symptoms most likely secondary to chronic COPD/pulmonary HTN. You need to follow-up with your PCP in the outpatient se tting. Your workup here was reassuring otherwise. Return with any new or worsening symptoms. Forms: PCP List
[2024-07-09 16:50] LABS: BASOPHILS # (AUTO) 0.1 10^3/uL (0.0-0.1); BASOPHILS % (AUTO) 0.9 %; EOSINOPHILS # (AUTO) 0.2 10^3/uL (0.0-0.7); EOSINOPHILS % (AUTO) 1.7 %; HCT - HEMATOCRIT 40.5 % (37.0-47.0); HGB - HEMOGLOBIN 12.6 g/dL (12.0-16.0); LYMPHOCYTES # (AUTO) 3.1 10^3/uL (1.5-3.5); LYMPHOCYTES % (AUTO) 33.5 %; MEAN CORPUSCULAR HGB CONC 31.1 g/dL (32.0-36.0); MEAN CORPUSCULAR VOLUME 96.4 fL (81.0-99.0); MEAN PLATELET VOLUME 10.7 fL (7.9-10.8); MONOCYTES # (AUTO) 0.7 10^3/uL (0.0-1.0); MONOCYTES % (AUTO) 7.7 %; NEUTROPHILS # (AUTO) 5.2 10^3/uL (1.5-6.6); PLT - PLATELET COUNT 199 10^3/uL (130-450); RED CELL DISTRIBUTION WIDTH 13.3 % (12.0-15.0); WHITE BLOOD COUNT 9.3 x10^3/uL (4.8-10.8)
--- NOTE | 2024-07-09 16:51 | XRAY Report ---
PROCEDURE: Chest 1V INDICATIONS: chest tightness TECHNIQUE: One view of the chest was acquired. COMPARISON: 12/21/2021. FINDINGS: Surgical changes and devices: None. Lungs and pleura: No pleural effusions or pneumothorax. Lungs are clear. Mediastinum: Mediastinal contours appear normal. Heart size is normal. Bones and chest wall: No suspicious bony lesions. Overlying soft tissues appear unremarkable. IMPRESSION: No acute cardiopulmonary process. Reviewed by: Jose Armando Barrera MD on 07/09/2024 4:49 PM PDT Approved by: Jose Armando Barerra MD on 07/09/2024 4:49 PM PDT Station ID: [id number]
[2024-07-09 17:06] LABS: ALBUMIN 4.1 g/dL (3.2-5.5); ALBUMIN/GLOBULIN RATIO 1.3 (1.0-2.2); BILIRUBIN,TOTAL 0.7 mg/dL (0.2-1.0); CALCIUM 9.6 mg/dL (8.5-10.3); CREATININE 0.9 mg/dL (0.6-1.3); TOTAL PROTEIN 7.2 g/dL (6.4-8.9)
[2024-07-09 17:08] LABS: TROPONIN I HIGH SENSITIVITY 4.1 ng/L (2.3-14.8)
[2024-07-09] MEDS: IPRATROPIUM/ALBUTEROL 3 ML NEB INH STA (18:50)
[2024-07-09 18:52] VITALS: BP 185/109; O2SAT 95
== END 2024-07-09 19:20 | disposition home or self-care (01) ==
LOC: ED 15:40
DX: J44.9 Chronic obstructive pulmonary disease, unspecified (principal); I27.20 Pulmonary hypertension, unspecified; I44.7 Left bundle-branch block, unspecified; I48.91 Unspecified atrial fibrillation; I10 Essential (primary) hypertension; E78.00 Pure hypercholesterolemia, unspecified; G47.33 Obstructive sleep apnea (adult) (pediatric); Z79.01 Long term (current) use of anticoagulants; Z99.81 Dependence on supplemental oxygen; Z86.73 Personal history of transient ischemic attack (TIA), and cerebral infarction without residual deficits; Z86.718 Personal history of other venous thrombosis and embolism
CPT/HCPCS: 36415; 80053; 83880; 84484; 85025; 93005; 94640; 94664; 99284

== ENCOUNTER 2025-02-26 20:24 | Inpatient (IN) ==
[2025-02-26] MEDS ORDERED: DEXAMETHASONE 10 MG/ML VIAL ONE (20:29)
[2025-02-26] MEDS: DEXAMETHASONE 10 MG/ML VIAL IVP STA (20:31)
--- NOTE | 2025-02-26 20:31 | ED Physician Documentation ---
PD HPI DYSPNEA Stated complaint Stated Complaint: RESP DISTRESS Chief complaint Chief Complaint: Resp Additional information Additional information: BIBA. HPI from EMS, patient. Patient complains of 3 days of gradual onset but steadily progressive dyspnea. She denies any pain including chest pain. Patient is not aware of any recent fever. She denies cough, new leg swelling. Patient has a baseline supplemental oxygen requirement (4 L/min). Patient reportedly used her MDI twice tonight without adequate improvement and thus called 911. EMS arrived to find the patient on her 4 L nasal cannula oxygen with a pulse ox of 92%. However, during their assessment, she became more dyspneic without provocation and pulse ox dropped as low as 85% on 4 L. She was thus placed on CPAP, given 2 DuoNebs that are completed by the time she arrived to the emergency department. EMS remarks that her work of breathing has improved on arrival to ED. Patient indicates she has required intubation in the past for COPD exacerbation Meds/Allgy Home Medications Ambulatory Orders Medication Instructions Recorded Confirmed atorvastatin 40 mg tablet 40 mg PO QPM 05/22/18 spironolactone 25 mg tablet 25 mg PO DAILY pulmonary H TN #30 05/26/18 08/26/24 tabs Permanent Disabled Placard 08/26/24 08/26/24 albuterol sulfate 90 mcg/actuation 2 puff inhalation Q ID PRN 08/26/24 08/26/24 aerosol inhaler calcium 500 mg (as 1 tab PO QDAY 08/26/2408/26 carbonate)-vitamin D3 5 mcg (200 unit) tablet yjzajhvpfkp-qpwooqoxd-bsl C-Mn 500 3 cap PO QDAY 08/2608/26/24 mg-400 mg capsule (Glucosamine Chondroitin Maximum Strength) losartan 100 mg tablet 100 mg PO QDAY 08/26/2404/13 melatonin 10 mg tablet 10 mg PO HS PRN 08/26/2404/13 potassium chloride 10 mEq 10 meq PO QDAY 08/26/2404/13 capsule,extended release sotalol 120 mg tablet (Sotalol AF) 120 mg PO BID 08/2608/26/24 tiotropium bromide 2.5 2 puff inhalation QDAY 08/2608/26/24 mcg/actuation mist for inhalation (Spiriva Respimat) hydralazine 10 mg tablet See Rx Instructions .Route 1 .COMPLEX #90 tabs sertraline 50 mg tablet 50 - 150 mg (1 - 3 x 50 mg) PO 10/27/24 QDAY #270 tabs Allergies Allergies Allergy/AdvReac Type Severity Reaction Status Date / Time bupropion HCl * (From Allergy Severe Hallucinati Verified 02/26/25 20:37 Wellbutrin) ons nortriptyline AdvReac Unknown Verified 02/26/25 20:37 PFS Active Problems All Active Problems (Updated 02/26/25 @ 23:31 by Hiren Qiuroz MD) Parainfluenza (Acute) COPD exacerbation (Acute) Atrial fibrillation with RVR (Acute) Resistant hypertension (Acute 10/08/23) Pulmonary hypertension (Acute 06/27/18) Hyperlipidemia (Acute 05/28/18) Headache (Acute) Cerebrovascular accident, embolic (Acute) Moderate to severe pulmonary hypertension (Acute) MIGUELITO (obstructive sleep apnea) (Acute) Right lower lobe pneumonia (Acute) Full code status (Acute) DVT prophylaxis (Acute) HLD (hyperlipidemia) (Acute) HTN (hypertension) (Acute) Weakness (Acute) Atrial fibrillation (Acute) TIA (transient ischemic attack) (Acute) Left knee sprain (Acute) Bronchitis (Acute) Upper respiratory tract infection (Acute) Labyrinthitis, acute viral (Acute) Medical History Medical History (Updated 02/26/25 @ 23:31 by Hiren Quiroz MD) Unilateral primary osteoarthritis, right hip (07/19/15) Screening for thyroid disorder (12/11/22) Screening for hyperlipidemia (12/11/22) Screening for depression (05/28/18) Screening for colon cancer (12/11/22) Screening for alcoholism (05/28/18) Preventive care (09/18/21) Patient's other noncompliance with medication regimen for other reason (12/31/23) Morbid obesity (12/31/23) Medication, long-term use (09/18/21) Mammographic screening for breast cancer (08/29/17) Mammographic screening for breast cancer (07/25/18) Mammogram, abnormal, left (12/23/19) Left bundle branch block (06/27/18) Knee pain (04/17/22) Hypertension benign essential (10/21/1959) History of ischemic transient ischemic attack (TIA) (10/08/23) Hip pain, right (07/19/15) Hip pain, right (04/17/22) Hepatitis C treatment (10/21/1959) Dyspnea on exertion (10/08/23) 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) Cerebrovascular disease (05/28/18) Benign paroxysmal vertigo, bilateral (08/14/16) Atrial fibrillation, paroxysmal (05/28/18) Atrial fibrillation, chronic (10/08/23) Anxiety depression (12/11/22) Aftercare following joint replacement surgery (04/25/16) Aftercare following joint replacement surgery (11/07/16) Abnormal kidney function study (03/27/19) Surgical History Surgical History (Updated 08/27/24 @ 05:50 by Diane Perea) Presence of right artificial hip joint (11/22/15) Family History Family History (Updated 08/26/24 @ 13:47 by Lucrecia Woody RN) Mother CVA (cerebral vascular accident) Father Heart disease Heart attack Brother High blood pressure Substance abuse Social History Social History Smoking Status: Never smoker If you are a former smoker, when did you quit? (Date/Year): 10/21/1992 How many cigarettes a day do you smoke? (20 cigarettes=1 Pk): 20 Do you dip or chew tobacco?: No Patient requests smoking cessation consult: No Initiate information on smoking cessation: No Living arrangement: At home Living Condition: Alone Relationship: Level: Independent Home Mobility Equipment: Wheeled walker Do you feel safe in your home environment?: Yes Suffered physical, verbal, emotional, or financial abuse?: No POLST Patient has POLST: No POLST Status: Full Code Exam Exam Vital Signs: Vital Signs x48h Temp Pulse Resp BP Pulse Ox 02/26/25 21:45 107 H 23 127/78 98 02/26/25 21:30 111 H 22 129/89 98 02/26/25 21:15 123 H 27 H 141/89 H 98 02/26/25 21:07 133 H 27 H 167/89 H 99 02/26/25 20:52 137 H 33 H 138/92 H 99 02/26/25 20:38 179 H 25 H 192/109 H 99 02/26/25 20:24 37.2 C 102 H 33 H 192/109 H 96 Constitutional normal general appearance, distress noted (moderate) and (respiratory) and alert BiPAP in place. moderate respiratory distress and appears anxious Respiratory breath sounds equal bilaterally, wheezing noted (bilateral wheezing throughout expiratory phase ) (expiratory wheezes) and no rales poor air movement bilaterally, more pronounced on right Cardiovascular heart rate abnormal (tachycardic), rhythm abnormal (irregular), no murmur, no JVD and edema noted (BLE) Gastrointestinal abdomen soft to palpation and nontender to palpation Psychiatry mental status grossly normal Skin skin color normal Results Vitals Vitals: Vital Signs - 24 hr 02/26/25 20:24 02/26/25 20:30 02/26/25 20:38 Temperature 37.2 C Temperature Source Oral Pulse Rate 102 H 197 H 179 H Respiratory Rate 33 H 25 H Blood Pressure 192/109 H 192/109 H O2 Saturation 96 99 Oxygen Delivery Method O2 Source CPAP BIPAP If not protocol: Oxygen Flow, liters/minute Fraction of Inspired Oxygen (FIO2) 100 Pain Intensity 0 02/26/25 20:46 02/26/25 20:52 02/26/25 21:07 Temperature Temperature Source Pulse Rate 137 H 133 H Respiratory Rate 33 H 27 H Blood Pressure 138/92 H 167/89 H O2 Saturation 99 99 Oxygen Delivery Method Bi-pap O2 Source BIPAP BIPAP If not protocol: Oxygen Flow, liters/minute Fraction of Inspired Oxygen (FIO2) Pain Intensity 02/26/25 21:15 02/26/25 21:30 02/26/25 21:30 Temperature Temperature Source Pulse Rate 123 H 111 H 129 H Respiratory Rate 27 H 22 Blood Pressure 141/89 H 129/89 O2 Saturation 98 98 Oxygen Delivery Method O2 Source BIPAP BIPAP If not protocol: Oxygen Flow, liters/minute Fraction of Inspired Oxygen (FIO2) 100 Pain Intensity 02/26/25 21:45 02/26/25 21:51 02/26/25 22:21 Temperature Temperature Source Pulse Rate 107 H 133 H Respiratory Rate 23 22 22 Blood Pressure 127/78 113/78 147/89 H O2 Saturation 98 99 99 Oxygen Delivery Method O2 Source BIPAP Non-rebreather mask If not protocol: Oxygen Flow, liters/minute 15 Fraction of Inspired Oxygen (FIO2) Pain Intensity 02/26/25 22:45 02/26/25 22:51 Temperature Temperature Source Pulse Rate 145 H 125 H Respiratory Rate 27 H Blood Pressure O2 Saturation 98 Oxygen Delivery Method O2 Source If not protocol: Oxygen Flow, liters/minute Fraction of Inspired Oxygen (FIO2) 100 Pain Intensity Oxygen O2 Source Non-rebreather mask EKG (time done) 20:40: EKG releavant findings:: EKG personally interpreted by author of this note. Relevant findings are: Rate: Rate (enter#) (160) Rhythm: Atrial fibrillation [place]: LAD QRS: LBBB Compare to prior EKG: Other (LBBB noted on previous EKG) Labs Labs: Laboratory Tests 02/26/25 02/26/25 02/26/25 20:25 20:44 22:48 WBC 11.8 H RBC 4.53 Hgb 13.7 Hct 44.5 MCV 98.2 MCH 30.2 MCHC 30.8 L RDW 14.3 Plt Count 195 MPV 11.0 H Neut # (Auto) 7.2 H Lymph # (Auto) 3.3 Alcorn # (Auto) 1.2 H Eos # (Auto) 0.1 Baso # (Auto) 0.1 Absolute Nucleated RBC 0.00 Nucleated RBC % 0.0 Sodium 137 Potassium 4.7 H Chloride 97 L Carbon Dioxide 32 Anion Gap 8.0 BUN 16 Creatinine 1.0 Estimated GFR (MDRD) 54 L Glucose 170 H Calcium 9.7 Magnesium 2.0 Total Bilirubin 0.8 AST 19 ALT 15 Alkaline Phosphatase 61 Troponin I High Sens 12.3 B-Natriuretic Peptide 168 H Total Protein 7.8 Albumin 4.6 Globulin 3.2 Albumin/Globulin Ratio 1.4 Triglycerides 153 Cholesterol 162 LDL Cholesterol, Calc 65 VLDL Cholesterol 31 HDL Cholesterol 66 LDL/HDL Ratio 1.0 Cholesterol/HDL Ratio 2.5 Lipase 13 TSH 2.21 Urine Color YELLOW Urine Clarity HAZY Urine pH 5.5 Ur Specific [place] 1.025 Urine Protein NEGATIVE Urine Glucose (UA) NEGATIVE Urine Ketones NEGATIVE Urine Occult Blood TRACE-INTA Urine Nitrite NEGATIVE Urine Bilirubin NEGATIVE Urine Urobilinogen 0.2 (NORMAL) Ur Leukocyte Esterase NEGATIVE Urine RBC 0-5 Urine WBC 0-3 Ur Squamous Epith Cells MANY Squamous H Amorphous Sediment Moderate Urine Bacteria Many H Ur Microscopic Review INDICATED Urine Culture Comments NOT INDICATED Nasal Adenovirus (PCR) NOT DETECTED Nasal B. parapertussis DNA (PCR) NOT DETECTED Nasal Coronavir 229E PCR NOT DETECTED Nasal Coronavir HKU1 PCR NOT DETECTED Nasal Coronavir NL63 PCR NOT DETECTED Nasal Coronavir OC43 PCR NOT DETECTED Nasal Enterovir/Rhinovir PCR NOT DETECTED Nasal Influenza B PCR NOT DETECTED Nasal Influenza A PCR NOT DETECTED Nasal Parainfluen 1 PCR NOT DETECTED Nasal Parainfluen 2 PCR NOT DETECTED Nasal Parainfluen 3 PCR DETECTED A Nasal Parainfluen 4 PCR NOT DETECTED Nasal RSV (PCR) NOT DETECTED Nasal B.pertussis DNA PCR NOT DETECTED Nasal C.pneumoniae (PCR) NOT DETECTED Adeel Human Metapneumo PCR NOT DETECTED Nasal M.pneumoniae (PCR) NOT DETECTED Nasal SARS-CoV-2 (PCR) NOT DETECTED Rads (name of study) chest xray: Relevant Findings:: Prelim report reviewed and See rad report PD Medical Decision Making ED course Complexity details: reviewed old records, reviewed results, re-evaluated patient, considered differential and d/w patient ED course: Given albuterol neb and 10mg IV decadron early in stay. No acute findings on CXR including no infiltrate. Mild leukocytosis (WBC 11.8). Unremarkable CMP (mild hyperkalemia, K 4.7). Respiratory PCR panel positive for parainfluenza type 3. Patient is in atrial fibrillation with RVR throughout ED stay; her prescription medications include xarelto (patient tells me this herself). Note that, per patient, she also underwent EPS ablation last month (after unsuccessful attempt in September 2024). She is also given 15mg IV diltiazem followed by 10mg IV diltiazem to attempt rate control which resulted in improvement, but not resolution, of her RVR (150s HR improved to 90s-110s, gradually increasing rate to 120s-130s then improved to 110s-120s after the 10mg diltiazem). The reason for the lower dose of diltiazem on the redosing is softer blood pressures (markedly hypertensive on arrival but upper 100s-110s prior to second dose of diltiazem). On serial reexaminations, her breath sounds improved bilaterally with persistent expiratory wheezing throughout all lung plunkett. The improvement was manifest as significant improvement in air movement bilaterally as well as patient in steadily decreasing respiratory distress. Unfortunately, we were unable to wean her off of the BiPAP; while her pulse ox saturations did not drop from lower 90s while on 15 L/min, she became obviously and significantly more dyspneic and was c/o rapidly worsening dyspnea and thus BiPAP again placed and plan is to admit to [facility]. Case d/w [facility]. Castorena ([facility] accepts admit to [facility] hospitalist service Discharge Plan Discharge Patient Disposition: [facility] DC/Xfer Condition: Stable Clinical Impression: Atrial fibrillation with RVR, COPD exacerbation, Parainfluenza Interventions: ED Admission Assessment Last Done: 02/27/25 00:16
[2025-02-26 20:36] LABS: BASOPHILS # (AUTO) 0.1 10^3/uL (0.0-0.1); BASOPHILS % (AUTO) 0.8 %; EOSINOPHILS # (AUTO) 0.1 10^3/uL (0.0-0.7); EOSINOPHILS % (AUTO) 0.5 %; HCT - HEMATOCRIT 44.5 % (37.0-47.0); HGB - HEMOGLOBIN 13.7 g/dL (12.0-16.0); LYMPHOCYTES # (AUTO) 3.3 10^3/uL (1.5-3.5); LYMPHOCYTES % (AUTO) 27.9 %; MEAN CORPUSCULAR HEMOGLOBIN 30.2 pg (27.0-31.0); MEAN CORPUSCULAR HGB CONC 30.8 g/dL (32.0-36.0); MEAN CORPUSCULAR VOLUME 98.2 fL (81.0-99.0); MONOCYTES # (AUTO) 1.2 10^3/uL (0.0-1.0); MONOCYTES % (AUTO) 9.7 %; NEUTROPHILS # (AUTO) 7.2 10^3/uL (1.5-6.6); NEUTROPHILS % (AUTO) 60.8 %; PLT - PLATELET COUNT 195 10^3/uL (130-450); RED BLOOD COUNT 4.53 10^6/uL (4.20-5.40); RED CELL DISTRIBUTION WIDTH 14.3 % (12.0-15.0); WHITE BLOOD COUNT 11.8 x10^3/uL (4.8-10.8)
[2025-02-26 20:52] LABS: ALBUMIN 4.6 g/dL (3.2-5.5); ALBUMIN/GLOBULIN RATIO 1.4 (1.0-2.2); BILIRUBIN,TOTAL 0.8 mg/dL (0.2-1.0); CALCIUM 9.7 mg/dL (8.5-10.3); POTASSIUM 4.7 mmol/L (3.5-4.5); TOTAL PROTEIN 7.8 g/dL (6.4-8.9)
[2025-02-26] MEDS: diltiaZEM INJ 5 MG/ML VIAL IVP STA ×2 (21:20→22:50)
--- NOTE | 2025-02-26 21:23 | XRAY Report ---
PROCEDURE: XR Chest 1V INDICATIONS: dyspnea TECHNIQUE: One view of the chest was acquired. COMPARISON: Chest x-ray 07/09/2024 FINDINGS: Surgical changes and devices: None. Lungs and pleura: No pleural effusions or pneumothorax. No consolidation. Mediastinum: Mediastinal contours appear normal. Heart size is normal. Bones and chest wall: No suspicious bony lesions. Overlying soft tissues appear unremarkable. IMPRESSION: No acute cardiothoracic process. Reviewed by: Salomón Duarte MD on 02/26/2025 9:22 PM PDT Approved by: Salomón Duarte MD on 02/26/2025 9:22 PM PDT Station ID: [id number]
--- OUTSIDE RECORDS SUMMARY | 2025-02-26 21:23 | EXTERNAL MEDICAL SUMMARY RPT | Continuity of Care Document ---
Author Organization [facility] Address [address] [address] Phone Problems date description facility 2025-01-28 12:30 Other persistent atrial fibrill ation [facility] 2025-01-29 00:04 Other persistent atrial fibrill ation [facility] Results/Labs test date facility value unit notes Result panel 1 NUCLEATED RED BLOOD CELLS AUTO 2025-01-28 12:43 [facility] 0.0 /100wbc (missing) NRBC ABSOLUTE COUNT (AUTO) 2025-01-28 12:43 [facility] 0.00 x10 3/ul (missing) BASOPHILS # (AUTO) 2025-01-28 12:43 [facility] 0.1 10 3/ul (missing) EOSINOPHILS # (AUTO) 2025-01-28 12:43 [facility] 0.2 10 3/ul (missing) MONOCYTES # (AUTO) 2025-01-28 12:43 [facility] 0.7 10 3/ul (missing) CREATININE 2025-01-28 12:43 [facility] 0.9 mg/dl As of April 2023 testing method has changed, this may include reference ranges. INR 2025-01-28 12:43 [facility] 1.8 (missing ) Oral Anticoagulant Indication INR range Venous Thrombosis, P.E. 2.0 - 3.0 Mechanical Valve 2.5 - 3.5 CHLORIDE 2025-01-28 12:43 [facility] 102 mmol/l As of April 2023 testing method has changed, this may include reference ranges. MEAN PLATELET VOLUME 2025-01-28 12:43 [facility] 12.3 fl (missing) HGB - HEMOGLOBIN 2025-01-28 12:43 [facility] 12.9 g /dl (missing) RED CELL DISTRIBUTION WIDTH 2025-01-28 12:43 [facility] 14.0 % (mi ssing) SODIUM 2025-01-28 12:43 [facility] 141 mmol/l As of April 2023 testing method has changed, this may include reference ranges. PT - PROTHROMBIN TIME 2025-01-28 12:43 [facility] 18.9 secs N UNK PLT - PLATELET COUNT 2025-01-28 12:43 [facility] 182 10 3/ul (missing) BUN - BLOOD UREA NITROGEN 2025-01-28 12:43 [facility] 19 mg/dl As of Apr testing method has changed, this may include reference ranges. MEAN CORPUSCULAR HEMOGLOBIN 2025-01-28 12:43 [facility] 29.7 pg (missing) LYMPHOCYTES # (AUTO) 2025-01-28 12:43 [facility] 3.4 10 3/ul (missing) MEAN CORPUSCULAR HGB CONC 2025-01-28 12:43 [facility] 30.7 g/dl (missing) CARBON DIOXIDE - CO2 2025-01-28 12:43 [facility] 33 mmol/l As of Apr testing method has changed, this may include reference ranges. RED BLOOD COUNT 2025-01-28 12:43 [facility] 4.35 10 6/ul (missing) NEUTROPHILS # (AUTO) 2025-01-28 12:43 [facility] 4.5 10 3/ul (missing) POTASSIUM 2025-01-28 12:43 [facility] 4.6 mmol/l As of April 2023 testing method has changed, this may include reference ranges. HCT - HEMATOCRIT 2025-01-28 12:43 [facility] 42.0 % (missing) ANION GAP 2025-01-28 12:43 [facility] 6.0 (missing ) (missing) GFR - MDRD 2025-01-28 12:43 [facility] 61 (blake g) Social History date description facility
[2025-02-26 21:37] LABS: B. PARAPERTUSSIS- RESP PCR PAN NOT DETECTED; B. PERTUSSIS- RESP PCR PANEL NOT DETECTED; C. PNEUMONIAE- RESP PCR PANEL NOT DETECTED; CORONAVIRUS 229E-RESP PCR NOT DETECTED; CORONAVIRUS HKU1-RESP PCR NOT DETECTED; CORONAVIRUS NL63-RESP PCR NOT DETECTED; CORONAVIRUS OC43-RESP PCR NOT DETECTED; HUMAN METAPNEUMOVIRUS NOT DETECTED; INFLUENZA A- RESP PCR PANEL NOT DETECTED; INFLUENZA B - RESP PCR PANEL NOT DETECTED; M. PNEUMONIAE- RESP PCR PANEL NOT DETECTED; PARAINFLUENZA VIRUS 1 NOT DETECTED; PARAINFLUENZA VIRUS 2 NOT DETECTED; PARAINFLUENZA VIRUS 4 NOT DETECTED; RHINOVIRUS/ENTEROVIRUS NOT DETECTED; RSV- RESP PCR PANEL NOT DETECTED; SARS-CoV-2 -RESP PCR PANEL NOT DETECTED
[2025-02-26] MEDS ORDERED: BENZONATATE 100 MG CAPSULE PO PRN (22:56)
[2025-02-26] MEDS ORDERED: BENZOCAINE/MENTHOL LOZENGE MM PRN (22:56)
[2025-02-26] MEDS ORDERED: MORPHINE 10 MG/ML VIAL IVP PRN (22:56)
[2025-02-26] MEDS ORDERED: ONDANSETRON 4 MG/2 ML VIAL IVP PRN (22:56)
[2025-02-26] MEDS ORDERED: PHENOL THROAT SPRAY 177 ML MM PRN (22:56)
[2025-02-26 23:09] LABS: BILIRUBIN,URINE NEGATIVE (NEGATIVE); GLUCOSE, URINE (UA) NEGATIVE (NEGATIVE); KETONES,URINE (UA) NEGATIVE (NEGATIVE); LEUKOCYTE ESTERASE, URINE NEGATIVE (NEGATIVE); NITRITE,URINE NEGATIVE (NEGATIVE); OCCULT BLOOD,URINE TRACE-INTA (NEGATIVE); PH,URINE 5.5 PH (5.0-7.5); PROTEIN,URINE NEGATIVE (NEGATIVE); UROBILINOGEN,URINE 0.2 (NORMAL) E.U./dL (NORMAL)
[2025-02-26 23:12] LABS: CLARITY,URINE HAZY (CLEAR)
[2025-02-26 23:31] LABS: AMORPHOUS SEDIMENT,UR Moderate /LPF; BACTERIA,URINE Many /HPF (None Seen); RBC,URINE 0-5 /HPF (0-5); SQUAMOUS EPITHELIAL CELL,UR MANY Squamous (<= Few); WBC,URINE 0-3 /HPF (0-5)
[2025-02-26 23:32] LABS: CHOL/HDL RATIO 2.5 (<4.4); CHOLESTEROL 162 mg/dL; HDL CHOLESTEROL 66 mg/dL; LDL CHOLESTEROL,CALCULATED 65 mg/dL; TRIGLYCERIDES 153 mg/dL; VLDL CHOLESTEROL 31 mg/dL
[2025-02-26 23:38] LABS: THYROID STIMULATING HORMONE 2.21 uIU/mL (0.34-5.60)
[2025-02-26] MEDS ORDERED: ALBUTEROL NEB 2.5 MG/3 ML INH PRN (23:42)
--- NOTE | 2025-02-27 00:05 | HISTORY & PHYSICAL EXAMINATION ---
Chief Complaint Chief Complaint Chief Complaint: sob, fatigue History of Present Illness History of Present Illness HPI Comment/Other: pt with worsening sob x 3-4 days. she is taking care of grandchildren who have also gotten sick. no falls. no ams. h/o copd and h/o intubation in the past. quit smoking in 1992. h/o a-fib, s/p ablation in jan 2025, and was subsequently taken off xarelto. states heart has been in nsr since then. she does have chills. has cough and chest pressue d/t sob. Review of Systems Status of ROS: 10 or more systems reviewed and unremarkable except as noted in history and below PFSH Active Problems All Active Problems (Updated 02/26/25 @ 23:31 by Hiren Quiroz MD) Parainfluenza (Acute) COPD exacerbation (Acute) Atrial fibrillation with RVR (Acute) Resistant hypertension (Acute 10/08/23) Pulmonary hypertension (Acute 06/27/18) Hyperlipidemia (Acute 05/28/18) Headache (Acute) Cerebrovascular accident, embolic (Acute) Moderate to severe pulmonary hypertension (Acute) MIGUELITO (obstructive sleep apnea) (Acute) Right lower lobe pneumonia (Acute) Full code status (Acute) DVT prophylaxis (Acute) HLD (hyperlipidemia) (Acute) HTN (hypertension) (Acute) Weakness (Acute) Atrial fibrillation (Acute) TIA (transient ischemic attack) (Acute) Left knee sprain (Acute) Bronchitis (Acute) Upper respiratory tract infection (Acute) Labyrinthitis, acute viral (Acute) Medical History Medical History (Updated 02/26/25 @ 23:31 by Hiren Quiroz MD) Unilateral primary osteoarthritis, right hip (07/19/15) Screening for thyroid disorder (12/11/22) Screening for hyperlipidemia (12/11/22) Screening for depression (05/28/18) Screening for colon cancer (12/11/22) Screening for alcoholism (05/28/18) Preventive care (09/18/21) Patient's other noncompliance with medication regimen for other reason (12/31/23) Morbid obesity (12/31/23) Medication, long-term use (09/18/21) Mammographic screening for breast cancer (08/29/17) Mammographic screening for breast cancer (07/25/18) Mammogram, abnormal, left (12/23/19) Left bundle branch block (06/27/18) Knee pain (04/17/22) Hypertension benign essential (10/21/1959) History of ischemic transient ischemic attack (TIA) (10/08/23) Hip pain, right (07/19/15) Hip pain, right (04/17/22) Hepatitis C treatment (10/21/1959) Dyspnea on exertion (10/08/23) 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) Cerebrovascular disease (05/28/18) Benign paroxysmal vertigo, bilateral (08/14/16) Atrial fibrillation, paroxysmal (05/28/18) Atrial fibrillation, chronic (10/08/23) Anxiety depression (12/11/22) Aftercare following joint replacement surgery (04/25/16) Aftercare following joint replacement surgery (11/07/16) Abnormal kidney function study (03/27/19) Surgical History Surgical History (Updated 08/27/24 @ 05:50 by Diane Perea) Presence of right artificial hip joint (11/22/15) Family History Family History (Updated 08/26/24 @ 13:47 by Lucrecia Woody RN) Mother CVA (cerebral vascular accident) Father Heart disease Heart attack Brother High blood pressure Substance abuse Social History Social History Smoking Status: Never smoker If you are a former smoker, when did you quit? (Date/Year): 10/21/1992 How many cigarettes a day do you smoke? (20 cigarettes=1 Pk): 20 Do you dip or chew tobacco?: No Patient requests smoking cessation consult: No Initiate information on smoking cessation: No Living arrangement: At home Living Condition: Alone Relationship: Do you feel safe in your home environment?: Yes Suffered physical, verbal, emotional, or financial abuse?: No POLST Patient has POLST: No POLST Status: Full Code Meds/Allgy Home Medications Ambulatory Orders Medication Instructions Recorded Confirmed atorvastatin 40 mg tablet 40 mg PO QPM 05/22/18 spironolactone 25 mg tablet 25 mg PO DAILY pulmonary H TN #30 05/26/18 08/26/24 tabs Permanent Disabled Placard 08/26/24 08/26/24 albuterol sulfate 90 mcg/actuation 2 puff inhalation Q ID PRN 08/26/24 08/26/24 aerosol inhaler calcium 500 mg (as 1 tab PO QDAY 08/26/2408/26 carbonate)-vitamin D3 5 mcg (200 unit) tablet hhfsruftxyc-qxjpioxut-bnq C-Mn 500 3 cap PO QDAY 08/2608/26/24 mg-400 mg capsule (Glucosamine Chondroitin Maximum Strength) losartan 100 mg tablet 100 mg PO QDAY 08/26/2404/13 melatonin 10 mg tablet 10 mg PO HS PRN 08/26/2404/13 potassium chloride 10 mEq 10 meq PO QDAY 08/26/2404/13 capsule,extended release sotalol 120 mg tablet (Sotalol AF) 120 mg PO BID 08/2608/26/24 tiotropium bromide 2.5 2 puff inhalation QDAY 08/2608/26/24 mcg/actuation mist for inhalation (Spiriva Respimat) hydralazine 10 mg tablet See Rx Instructions .Route 1 .COMPLEX #90 tabs sertraline 50 mg tablet 50 - 150 mg (1 - 3 x 50 mg) PO 10/27/24 QDAY #270 tabs Allergies Allergies Allergy/AdvReac Type Severity Reaction Status Date / Time bupropion HCl * (From Allergy Severe Hallucinati Verified 02/26/25 20:37 Wellbutrin) ons nortriptyline AdvReac Unknown Verified 02/26/25 20:37 Exam Exam Vital Signs: Vital Signs x48h Temp Pulse Resp BP Pulse Ox O2 Flow Rate 02/26/25 22:51 125 H 27 H 98 02/26/25 22:21 133 H 22 147/89 H 99 02/26/25 21:51 22 113/78 99 15 02/26/25 21:45 107 H 23 127/78 98 02/26/25 21:30 111 H 22 129/89 98 02/26/25 21:15 123 H 27 H 141/89 H 98 02/26/25 21:07 133 H 27 H 167/89 H 99 02/26/25 20:52 137 H 33 H 138/92 H 99 02/26/25 20:38 179 H 25 H 192/109 H 99 02/26/25 20:24 37.2 C 102 H 33 H 192/109 H 96 Constitutional normal general appearance HENMT normocephalic, head/scalp atraumatic and hearing grossly normal bilaterally Eyes EOMs intact bilaterally Respiratory on bipap, able to speak. details per ed charting Cardiovascular details per ed charting Neurology castings drafter II-XII intact Psychiatry mental status grossly normal, oriented x3, thought process normal and cooperative Conclusion/Plan Problem List (1) Parainfluenza: Lab Results 02/26/25 20:25 02/26/25 20:25 Other Other Results/Comments: pt with - - acute hypoxemic resp failure parainfluenza pneumonitis no infiltrate on CXR bipap, steroid, neb, supportive mgmt, mvi copd exacerbation --> quit smoking in the - a-fib rapid a-fib exacerbated d/t above h/o a-fib, s/p ablation in jan 2025 xarelto stopped in jan 2025 s/p ablation no chest pain pt received cardizem in ED bb prn, check electrolytes, check 2d echo lovenox subQ for now - hyperglycemia exacerbated d/t above no reported hx or medicines for t2dm monitor in setting of steroid usage check a1c, tsh, lipids f/u labs, o2 status, electrolytes further orders per clinical course
[2025-02-27] MEDS ORDERED: BENZONATATE 100 MG CAPSULE PO PRN (00:09)
--- OUTSIDE RECORDS SUMMARY | 2025-02-27 00:21 | EXTERNAL MEDICAL SUMMARY RPT | Continuity of Care Document ---
Author Organization [place] Address [address] [address] Phone Problems date description facility 2025-01-28 12:30 Other persistent atrial fibrill ation [facility] 2025-01-29 00:04 Other persistent atrial fibrill ation [facility] Results/Labs test date facility value unit notes Result panel 1 NUCLEATED RED BLOOD CELLS AUTO 2025-01-28 12:43 [facility] 0.0 /100wbc (missing) NRBC ABSOLUTE COUNT (AUTO) 2025-01-28 12:43 [facility] 0.00 x10 3/ul (missing) BASOPHILS # (AUTO) 2025-01-28 12:43 [facility] 0.1 10 3/ul (missing) EOSINOPHILS # (AUTO) 2025-01-28 12:43 [facility] 0.2 10 3/ul (missing) MONOCYTES # (AUTO) 2025-01-28 12:43 [facility] 0.7 10 3/ul (missing) CREATININE 2025-01-28 12:43 [facility] 0.9 mg/dl As of April 2023 testing method has changed, this may include reference ranges. INR 2025-01-28 12:43 [facility] 1.8 (missing ) Oral Anticoagulant Indication INR range Venous Thrombosis, P.E. 2.0 - 3.0 Mechanical Valve 2.5 - 3.5 CHLORIDE 2025-01-28 12:43 [facility] 102 mmol/l As of April 2023 testing method has changed, this may include reference ranges. MEAN PLATELET VOLUME 2025-01-28 12:43 [facility] 12.3 fl (missing) HGB - HEMOGLOBIN 2025-01-28 12:43 [facility] 12.9 g /dl (missing) RED CELL DISTRIBUTION WIDTH 2025-01-28 12:43 [facility] 14.0 % (mi ssing) SODIUM 2025-01-28 12:43 [facility] 141 mmol/l As of April 2023 testing method has changed, this may include reference ranges. PT - PROTHROMBIN TIME 2025-01-28 12:43 [facility] 18.9 secs N UNK PLT - PLATELET COUNT 2025-01-28 12:43 [facility] 182 10 3/ul (missing) BUN - BLOOD UREA NITROGEN 2025-01-28 12:43 [facility] 19 mg/dl As of Apr testing method has changed, this may include reference ranges. MEAN CORPUSCULAR HEMOGLOBIN 2025-01-28 12:43 [facility] 29.7 pg (missing) LYMPHOCYTES # (AUTO) 2025-01-28 12:43 [facility] 3.4 10 3/ul (missing) MEAN CORPUSCULAR HGB CONC 2025-01-28 12:43 [facility] 30.7 g/dl (missing) CARBON DIOXIDE - CO2 2025-01-28 12:43 [facility] 33 mmol/l As of Apr testing method has changed, this may include reference ranges. RED BLOOD COUNT 2025-01-28 12:43 [facility] 4.35 10 6/ul (missing) NEUTROPHILS # (AUTO) 2025-01-28 12:43 [facility] 4.5 10 3/ul (missing) POTASSIUM 2025-01-28 12:43 [facility] 4.6 mmol/l As of April 2023 testing method has changed, this may include reference ranges. HCT - HEMATOCRIT 2025-01-28 12:43 [facility] 42.0 % (missing) ANION GAP 2025-01-28 12:43 [facility] 6.0 (missing ) (missing) GFR - MDRD 2025-01-28 12:43 [facility] 61 (blake g) Social History date description facility
[2025-02-27] MEDS: ALBUTEROL NEB 2.5 MG/3 ML INH STA (00:28)
[2025-02-27] MEDS: MORPHINE 2 MG/ML CARPUJECT IVP PRN (00:31)
[2025-02-27] MEDS: IPRATROPIUM 0.2 MG/ML NEB INH SCH (01:41)
[2025-02-27] MEDS: IPRATROPIUM/ALBUTEROL 3 ML NEB INH SCH (01:41)
[2025-02-27] MEDS: MORPHINE 2 MG/ML CARPUJECT IVP ONE (01:49)
[2025-02-27] MEDS: diltiaZEM INJ 125 MG in DEXTROSE 5% 100 ML IV SCH ×2 (01:52→12:58)
[2025-02-27 04:51] LABS: BASOPHILS % (AUTO) 0.3 %; EOSINOPHILS # (AUTO) 0.1 10^3/uL (0.0-0.7); EOSINOPHILS % (AUTO) 0.8 %; HCT - HEMATOCRIT 41.1 % (37.0-47.0); HGB - HEMOGLOBIN 12.7 g/dL (12.0-16.0); LYMPHOCYTES # (AUTO) 1.2 10^3/uL (1.5-3.5); LYMPHOCYTES % (AUTO) 15.3 %; MEAN CORPUSCULAR HEMOGLOBIN 30.1 pg (27.0-31.0); MEAN CORPUSCULAR HGB CONC 30.9 g/dL (32.0-36.0); MEAN CORPUSCULAR VOLUME 97.4 fL (81.0-99.0); MEAN PLATELET VOLUME 10.6 fL (7.9-10.8); MONOCYTES # (AUTO) 0.1 10^3/uL (0.0-1.0); MONOCYTES % (AUTO) 1.4 %; NEUTROPHILS # (AUTO) 6.4 10^3/uL (1.5-6.6); NEUTROPHILS % (AUTO) 81.8 %; PLT - PLATELET COUNT 162 10^3/uL (130-450); RED BLOOD COUNT 4.22 10^6/uL (4.20-5.40); RED CELL DISTRIBUTION WIDTH 14.1 % (12.0-15.0); WHITE BLOOD COUNT 7.8 x10^3/uL (4.8-10.8)
[2025-02-27 05:07] LABS: ALBUMIN 4.2 g/dL (3.2-5.5); ALBUMIN/GLOBULIN RATIO 1.4 (1.0-2.2); BILIRUBIN,TOTAL 0.6 mg/dL (0.2-1.0); CALCIUM 9.4 mg/dL (8.5-10.3); CREATININE 1.1 mg/dL (0.6-1.3); POTASSIUM 4.8 mmol/L (3.5-4.5); TOTAL PROTEIN 7.2 g/dL (6.4-8.9)
[2025-02-27] MEDS: PANTOPRAZOLE 40 MG TABLET PO SCH (06:30)
[2025-02-27 08:01] LABS: ESTIMATED AVERAGE GLUCOSE 105 mg/dL (70-100); HEMOGLOBIN A1c% 5.3 % (4.27-6.07)
[2025-02-27] MEDS: methylPREDNISolone 4 MG TABLET PO SCH (08:13)
--- NOTE | 2025-02-27 08:49 | CT Report ---
PROCEDURE: CT Head WO INDICATIONS: headache TECHNIQUE: Noncontrast 4.5 mm thick angled axial sections acquired from the foramen magnum to the vertex. For radiation dose reduction, the following was used: automated exposure control, adjustment of mA and/or kV according to patient size. COMPARISON: MRI brain without contrast 05/23/2018 FINDINGS: Image quality: Poor; motion artifact limits evaluation. CSF spaces: Basal cisterns are patent. No extra-axial fluid collections. Ventricles are normal in size and shape. Brain: No midline shift. No intracranial mass effect or hemorrhage. Georges- white matter interface is normal. Skull and face: Calvarium and visualized facial bones are intact, without suspicious lesions. Sinuses: Visualized sinuses and mastoids are clear. IMPRESSION: No acute intracranial pathology. Reviewed by: Salomón Duarte MD on 02/27/2025 8:48 AM PDT Approved by: Salomón Duarte MD on 02/27/2025 8:48 AM PDT Station ID: [id number]
[2025-02-27] MEDS: ENOXAPARIN 40 MG/0.4 ML SYRINGE SUBQ SCH (09:03)
[2025-02-27] MEDS: ZINC SULFATE 220 MG CAPSULE PO SCH (09:04)
[2025-02-27] MEDS: CALCIUM CARB (OYSTER SHELL) 500 MG TABLET PO SCH (09:04)
[2025-02-27] MEDS: SOTALOL 80 MG TABLET PO SCH (09:04)
[2025-02-27] MEDS: CHOLECALCIFEROL 400 UNIT TABLET PO SCH (09:04)
[2025-02-27] MEDS: KETOROLAC 30 MG/ML VIAL IVP ONE (09:04)
[2025-02-27] MEDS: hydrALAZINE 10 MG TABLET PO SCH (09:05)
[2025-02-27] MEDS: SPIRONOLACTONE 25 MG TABLET PO SCH (09:05)
[2025-02-27] MEDS: GLUCOSAMINE CHONDROIT VIT C MN PO SCH (09:05)
[2025-02-27] MEDS: ASCORBIC ACID 500 MG TABLET PO SCH (09:05)
[2025-02-27] MEDS: POTASSIUM CHLORIDE 10 MEQ CAPSULE PO SCH (09:05)
[2025-02-27] MEDS: LOSARTAN 50 MG TABLET PO SCH (09:05)
[2025-02-27] MEDS: guaiFENesin 600 MG TABLET PO SCH (09:05)
[2025-02-27] MEDS ORDERED: hydrALAZINE 10 MG TABLET PO SCH (12:00)
[2025-02-27] MEDS: diltiaZEM INJ 5 MG/ML VIAL IVP ONE (12:52)
[2025-02-27] MEDS: SERTRALINE 50 MG TABLET PO SCH (12:52)
[2025-02-27] MEDS: AZITHROMYCIN 250 MG TABLET PO SCH (15:42)
[2025-02-27] MEDS: ATORVASTATIN 40 MG TABLET PO SCH (20:26)
[2025-02-27] MEDS: APIXABAN 5 MG TABLET PO SCH (20:26)
[2025-02-27] MEDS: methylPREDNISolone SUCCINATE 40 MG/ML VIAL IVP SCH (20:30)
[2025-02-28] MEDS: ACETAMINOPHEN 325 MG TABLET PO PRN (01:56)
[2025-02-28 04:29] LABS: HCT - HEMATOCRIT 37.5 % (37.0-47.0); HGB - HEMOGLOBIN 11.8 g/dL (12.0-16.0); MEAN CORPUSCULAR HGB CONC 31.5 g/dL (32.0-36.0); MEAN CORPUSCULAR VOLUME 95.4 fL (81.0-99.0); MEAN PLATELET VOLUME 10.6 fL (7.9-10.8); RED BLOOD COUNT 3.93 10^6/uL (4.20-5.40); RED CELL DISTRIBUTION WIDTH 13.7 % (12.0-15.0); WHITE BLOOD COUNT 7.3 x10^3/uL (4.8-10.8)
[2025-02-28 04:44] LABS: CALCIUM 9.4 mg/dL (8.5-10.3); CREATININE 0.9 mg/dL (0.6-1.3); MAGNESIUM 2.2 mg/dL (1.7-2.3); POTASSIUM 4.8 mmol/L (3.5-4.5)
[2025-02-28] MEDS: diltiaZEM CD 120 MG CAPSULE PO SCH (08:15)
[2025-02-28] MEDS: FUROSEMIDE 20 MG TABLET PO SCH (08:36)
--- NOTE | 2025-02-28 11:49 | PT Plan of Care ---
PT Inpatient Plan of Care DIAGNOSIS Diagnosis: a-fib with RVR and acute hypoxic RF Diagnosis: parainfluenza (+) Referring Provider: Kelsey Quinones Patient Status: Inpatient CHIEF COMPLAINT Chief Complaint: SOB and fatigue Onset of Chief Complaint: [employer] on 02/26/25 MEDICAL/SURGICAL HISTORY Medical History (Updated 02/26/25 @ 23:31 by Hiren Quiroz MD) Unilateral primary osteoarthritis, right hip (07/19/15) Screening for thyroid disorder (12/11/22) Screening for hyperlipidemia (12/11/22) Screening for depression (05/28/18) Screening for colon cancer (12/11/22) Screening for alcoholism (05/28/18) Preventive care (09/18/21) Patient's other noncompliance with medication regimen for other reason (12/31/23) Morbid obesity (12/31/23) Medication, long-term use (09/18/21) Mammographic screening for breast cancer (08/29/17) Mammographic screening for breast cancer (07/25/18) Mammogram, abnormal, left (12/23/19) Left bundle branch block (06/27/18) Knee pain (04/17/22) Hypertension benign essential (10/21/1959) History of ischemic transient ischemic attack (TIA) (10/08/23) Hip pain, right (07/19/15) Hip pain, right (04/17/22) Hepatitis C treatment (10/21/1959) Dyspnea on exertion (10/08/23) 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) Cerebrovascular disease (05/28/18) Benign paroxysmal vertigo, bilateral (08/14/16) Atrial fibrillation, paroxysmal (05/28/18) Atrial fibrillation, chronic (10/08/23) Anxiety depression (12/11/22) Aftercare following joint replacement surgery (04/25/16) Aftercare following joint replacement surgery (11/07/16) Abnormal kidney function study (03/27/19) Surgical History (Updated 08/27/24 @ 05:50 by Diane Perea) Presence of right artificial hip joint (11/22/15) BALANCE/FUNCTIONAL RESULTS Sitting Balance: Good Standing Balance: Good Tinetti Composite Score (Balance + Gait): 23 Tinetti Assessment Interpretation: Moderate Fall Risk ASSESSMENT Assessment: The pt is a 74 y/o F who arrived to the ED on 02/26/25 due to worsening SOB and fatigue, she was hospitalized with acute hypoxic RF 2/2 parainfluenza and she was also found to be in a-fib with RVR. Of note she did have an ablation last month, please see chart for complete medical hx. The pt was received resting comfortably sitting up in a recliner while on 6L O2 via NC. She presented today with good B UE and LE strength, good standing balance, and decreased activity tolerance which limited his tolerance with functional mobility. However, the limited mobility tolerance is her reported baseline level. At this time the pt does not appear to require continued skilled PT intervention while in the acute setting and it is recommended that he DC home without further therapy needs once medically stable. This plan was discussed with the pt, she was in agreement with this. At the end of the session the pt was sitting on the commode with RN in the room to attend to the pt's needs. RN and MD updated on pt's status and DC rec, no goals will be set as this is an eval only. PATIENT/FAMILY GOALS Patient/Family Goals: To get home to my kids and my dog PLAN Frequency: Evaluation only, no further P.T. Duration: Until discharge DISCHARGE RECOMMENDATIONS Discharge Location: Previous Living Situation Support/Services Needed: No needs Other Discharge Equipment: recommended pt replace her shower chair Transport Needs at Discharge: Personal vehicle
--- NOTE | 2025-02-28 11:54 | PROVIDER PROGRESS NOTE ---
Subjective Subjective Subjective: Patient is feeling much better today. She states her shortness of breath is improving. She does not feel any palpitations, or feelings of her heart racing. Yesterday she walked around the hallways once. This morning, she worked with physical therapy and did great. Her cough is also improving. She did require BiPAP intermittently overnight, and during the day yesterday, we will monitor her off of it today. At home, she was 3 to 4 L, but does go up to 6 L at times. Current Medications Current Medications Current Medications: Current Medications Generic Name Dose Route Start Last Admin Trade Name Freq PRN Reason Stop Dose Admin Acetaminophen 650 mg 02/27/25 21:50 02/28/25 06:39 Acetaminophen 325 Mg Tablet PO 650 mg Q4HR PRN Administration Pain or Fever > 38C (100.4F) Albuterol/Ipratropium 3 ml 02/28/25 13:00 Ipratropium/Albuterol 3 Ml Neb INH RTQ6H ABIGAIL Apixaban 5 mg 02/27/25 21:00 02/28/25 08:14 Apixaban 5 Mg Tablet PO 5 mg BID ABIGAIL Administration Ascorbic Acid 500 mg 02/27/25 09:00 02/28/25 08:14 Ascorbic Acid 500 Mg Tablet PO 500 mg DAILY ABIGAIL Administration Atorvastatin Calcium 40 mg 02/27/25 21:00 02/27/25 20:26 Atorvastatin 40 Mg Tablet PO 40 mg QPM ABIGAIL Administration Azithromycin 500 mg 02/27/25 15:00 02/28/25 08:14 Azithromycin 250 Mg Tablet PO 500 mg DAILY ABIGAIL Administration Benzonatate 100 mg 02/26/25 22:56 Benzonatate 100 Mg Capsule PO TID PRN Cough Calcium Carbonate/Glycine 500 mg 02/27/25 09:00 02/28/25 08:15 Calcium Carb (Oyster Shell) 500 Mg Tablet PO 500 mg DAILY ABIGAIL Administration Cholecalciferol 800 unit 02/27/25 09:00 02/28/25 08:15 Cholecalciferol 400 Unit Tablet PO 800 unit DAILY ABIGAIL Administration Diltiazem HCl 120 mg 02/28/25 09:00 02/28/25 08:15 Diltiazem Cd 120 Mg Capsule PO 120 mg DAILY ABIGAIL Administration Furosemide 20 mg 02/28/25 09:00 02/28/25 08:36 Furosemide 20 Mg Tablet PO 20 mg DAILY ABIGAIL Administration Guaifenesin 600 mg 02/27/25 09:00 02/28/25 08:18 Guaifenesin 600 Mg Tablet PO 600 mg BID ABIGAIL Administration Hydralazine HCl 10 mg 02/27/25 09:00 02/28/25 10:57 Hydralazine 10 Mg Tablet PO 10 mg DAILY ABIGAIL Administration Diltiazem HCl 125 mg/ Dextrose 125 mls @ 5 mls/hr 02/27/25 13:00 02/28/25 06:50 IV 5 mg/hr .Q25H ABIGAIL 5 mls/hr Titration Protocol 5 MG/HR Losartan Potassium 100 mg 02/27/25 09:00 02/28/25 10:57 Losartan 50 Mg Tablet PO 100 mg DAILY ABIGAIL Administration Melatonin 9 mg 02/26/25 23:45 Melatonin 3 Mg Tablet PO HS PRN Insomnia Methylprednisolone 40 mg 02/27/25 21:00 02/28/25 08:19 Methylprednisolone Succinate 40 Mg/Ml Vial IVP 40 mg BID ABIGAIL Administration Ondansetron HCl 4 mg 02/26/25 22:56 Ondansetron 4 Mg/2 Ml Vial IVP Q8H PRN Nausea / Vomiting Pantoprazole Sodium 40 mg 02/27/25 07:00 02/28/25 06:39 Pantoprazole 40 Mg Tablet PO 40 mg QDAC [facility] Administration Glucosamine- 1 each 02/27/25 09:00 02/28/25 08:26 Chondroit-Vit C-Mn PO Not Given DAILY [facility] Phenol/Menthol 1 sprays 02/26/25 22:56 Phenol Throat [place] 177 Ml MM Q4HR PRN Mouth Sore Pain Potassium Chloride 10 meq 02/27/25 09:00 02/28/25 08:22 Potassium Chloride 10 Meq Capsule PO Not Given DAILY ABIGAIL Sertraline HCl 150 mg 02/27/25 12:00 02/28/25 08:18 Sertraline 50 Mg Tablet PO 150 mg DAILY ABIGAIL Administration Spironolactone 25 mg 02/27/25 09:00 02/28/25 08:18 Spironolactone 25 Mg Tablet PO 25 mg DAILY ABIGAIL Administration Throat Lozenges 1 lozenge 02/26/25 22:56 Benzocaine/Menthol Lozenge MM Q2HR PRN Mouth Sore Pain Zinc Sulfate 220 mg 02/27/25 09:00 02/28/25 08:18 Zinc Sulfate 220 Mg Capsule PO 220 mg DAILY ABIGAIL Administration Objective Vital Signs/Intake & Output Reviewed Vital Signs: Yes Vital Signs: Vital Signs x48h Temp Pulse Pulse Resp BP Pulse Ox O2 Flow Rate 02/28/25 11:00 83 26 H 137/81 H 97 6 02/28/25 10:53 6 02/28/25 10:00 110 H 22 136/77 H 94 6 02/28/25 09:00 80 25 H 120/59 L 96 6 02/28/25 08:09 6 02/28/25 08:00 98 F 84 26 H 118/79 95 6 02/28/25 07:31 5 02/28/25 07:29 85 23 5 02/28/25 07:00 86 20 148/98 H 94 6 02/28/25 07:00 6 02/28/25 06:00 66 13 118/65 94 6 02/28/25 05:00 6 02/28/25 05:00 64 15 119/58 L 94 6 02/28/25 04:00 70 23 139/69 H 93 6 Intake & Output: Intake & Output 02/25/25 02/26/25 02/27/25 02/28/25 23:59 23:59 23:59 23:59 Intake Total 725 / 725 557 / 557 Output Total 1600 / 1600 600 / 600 Balance -875 / -875 -43 / -43 Weight (kg) 146.3 kg 141 kg Objective General Appearance: positive No acute distress and Alert; negative Anxious Eyes Bilateral: positive Normal inspection, PERRL and EOMI ENT: positive ENT inspection nml, Pharynx nml and No signs of dehydration Neck: positive Nml inspection, Thyroid nml, No JVD and Trachea midline Respiratory: positive Chest non-tender and Wheezes (diffuse, decreasing from yesterday); negative No respiratory distress (mild distress and tachypnea noted) Cardiovascular: positive No murmur and Irregularly irregular; negative Tachycardia or Bradycardia Abdomen: positive Non-tender and No distention; negative Guarding, Hepatomegaly or Splenomegaly Back: positive Nml inspection; negative CVA tenderness (R) or CVA tenderness (L) Skin: positive Color nml, No rash, Warm and Dry Extremities: positive Non-tender, Full ROM and Pedal edema (trace) Neurologic/Psychiatric: positive Oriented x3, Motor nml, Sensation nml and Mood/affect nml Lab Results 02/28/25 04:15 02/28/25 04:15 Other Labs: Lab Results x24hrs 02/28/25 Range/Units 04:15 WBC 7.3 (4.8-10.8) x10^3/uL RBC 3.93 L (4.20-5.40) 10^6/uL Hgb 11.8 L (12.0-16.0) g/dL Hct 37.5 (37.0-47.0) % MCV 95.4 (81.0-99.0) fL MCH 30.0 (27.0-31.0) pg MCHC 31.5 L (32.0-36.0) g/dL RDW 13.7 (12.0-15.0) % Plt Count 156 (130-450) 10^3/uL MPV 10.6 (7.9-10.8) fL Sodium 135 (135-145) mmol/L Potassium 4.8 H (3.5-4.5) mmol/L Chloride 97 L (101-111) mmol/L Carbon Dioxide 32 (21-32) mmol/L Anion Gap 6.0 (6-13) BUN 29 H (6-20) mg/dL Creatinine 0.9 (0.6-1.3) mg/dL Estimated GFR (MDRD) 61 L (>89) Glucose 184 H (74-104) mg/dL Calcium 9.4 (8.5-10.3) mg/dL Magnesium 2.2 (1.7-2.3) mg/dL Assessment/Plan Problem List (1) Acute hypoxic respiratory failure: Impression: Patient presented with tachypnea, oxygen saturation of 80s on room air. Was placed on BiPAP for work of breathing. This has been transitioned to 6 L of oxygen. At home, she usually wears around 3-4. Continue IV Solu-Medrol today 40 mg twice daily. Will switch to oral prednisone tomorrow. Continue scheduled DuoNebs, as well as DuoNebs as needed. Likely triggered by parainfluenza infection. (2) Parainfluenza: Impression: Management as above. (3) COPD exacerbation: Impression: Mangement as above. Continue 3 days of azithromycin. (4) Atrial fibrillation with RVR: Impression: Patient was on a Cardizem drip, which was weaned off, and she received a dose of oral Cardizem today. Patient had a ablation done 02/01/[address] Janak Collier. She presented with atrial flutter and then atrial fibrillation with rapid ventricular response this hospitalization, and has been going in and out of sinus rhythm. I spoke with him this morning, and he states that this can happen after an ablation as the heart recovers. He recommends amiodarone 400 mg twice a day for 10 days followed by 200 mg daily. He will make a follow-up appointment with her in the next 2 weeks. (5) Pulmonary hypertension: Impression: Continue management outpatient with bottom cager. Patient also has some diaphragmatic paralysis which is contributing to her respiratory issues. (6) Hyperlipidemia: Impression: Continue statin. Qualifiers: Hyperlipidemia type: unspecified Qualified Code(s): E78.5 - Hyperlipidemia, unspecified (7) HTN (hypertension): Impression: Continue hydralazine, losartan, spironolactone, Lasix. Qualifiers: Hypertension type: essential hypertension Qualified Code(s): I10 - Essential (primary) hypertension
[2025-02-28] MEDS: AMIODARONE 200 MG TABLET PO SCH (12:16)
--- NOTE | 2025-02-28 12:42 | PHARMACY PROGRESS NOTE ---
Best Possible Medication History Admit Date and Time: 02/27/25 0015 Home Medications Medication Instructions Recorded Confirmed Type atorvastatin 40 mg tablet 40 mg PO QPM 05/22/18 History spironolactone 25 mg tablet 25 mg PO DAILY pulmonary H TN #30 05/26/18 02/27/25 Rx tabs Permanent Disabled Placard 08/26/24 08/26/24 History albuterol sulfate 90 mcg/actuation 2 puff inhalation Q ID PRN 08/26/24 02/27/25 History aerosol inhaler shortness of breath or wheez ing losartan 100 mg tablet 100 mg PO QDAY 08/26/2402/18 History melatonin 10 mg tablet 10 mg PO HS PRN sleep 02/27/25 History potassium chloride 10 mEq 10 meq PO QDAY 08/26/2402/18 History capsule,extended release tiotropium bromide 2.5 2 puff inhalation QDAY 08/2602/27/25 History mcg/actuation mist for inhalation (Spiriva Respimat) furosemide 20 mg tablet 20 mg PO DAILY 02/27/2502/18 History hydralazine 10 mg tablet 10 mg PO DAILY 02/27/2502/18 History rivaroxaban 20 mg tablet (Xarelto) 20 mg PO DAILY 02/1802/27/25 History sertraline 50 mg tablet 150 mg PO QDAY 02/27/2502/18 History fluticasone furoate 200 1 inh inhalation BID 5 02/28/25 History mcg/actuation blister powder for inhalation (Arnuity Ellipta) Processed by: Pharmacy Medications reviewed in ED?: No Medication History completed: Yes Patient Interview: Completed Secondary Source(s): Pharmacy records and Insurance records [facility] Statement: As the person ultimately responsible for medication therapy, providers are able to order a medication from an existing home medication list in [facility] via the "Reconcile Routine" prior to Confirmation of that medication by web support engineer. Such practice is discouraged except when the physician, in their clinical judgment, deems that a medical need exists for a medication without regard to previous use.
[2025-02-28] MEDS: IPRATROPIUM/ALBUTEROL 3 ML NEB INH SCH (13:46)
[2025-02-28] MEDS: MELATONIN 3 MG TABLET PO PRN (22:20)
[2025-03-01 04:50] LABS: HCT - HEMATOCRIT 39.3 % (37.0-47.0); HGB - HEMOGLOBIN 13.4 g/dL (12.0-16.0); MEAN CORPUSCULAR HEMOGLOBIN 32.7 pg (27.0-31.0); MEAN CORPUSCULAR HGB CONC 34.1 g/dL (32.0-36.0); MEAN CORPUSCULAR VOLUME 95.9 fL (81.0-99.0); RED BLOOD COUNT 4.1 10^6/uL (4.20-5.40); WHITE BLOOD COUNT 9.9 x10^3/uL (4.8-10.8)
[2025-03-01 05:00] LABS: MAGNESIUM 2.3 mg/dL (1.7-2.3)
[2025-03-01 05:06] LABS: CALCIUM 9.6 mg/dL (8.5-10.3); POTASSIUM 4.7 mmol/L (3.5-4.5)
--- NOTE | 2025-03-01 09:47 | Discharge Summary ---
"Discharge Summary Admit Date: 02/27/25 Discharge Date: 03/01/25 Discharging Provider: Dr. Kelsey Quinones Primary Care Provider: Martha Alvares Code Status: Attempt Resuscitation Discharge Facility Name: Home DIAGNOSES Admission Diagnoses: Acute toxemic respiratory failure Atrial fibrillation Hyperglycemia Discharge Diagnoses with Status of Each Condition: Acute hypoxic respiratory failurepatient is back on her home oxygen. Did require BiPAP use the first day of hospitalization. Received IV Solu-Medrol, this has been transitioned to oral prednisone, which she will complete a course of. Also completed 3 days of azithromycin. Parainfluenzacontinue supportive management. COPD exacerbationcontinue prednisone, completed 3 days of azithromycin. Atrial fibrillation with RVRinitially, patient was placed on a Cardizem drip. She had an ablation done on 02/[address] Janak Sanchez. I spoke with him, and he recommended amiodarone 400 mg twice a day for 10 days, followed by 200 mg daily. He states that his office will call and make an appointment with her in the next week. Pulmonary hypertensioncontinue outpatient management with milling machine operator. Hyperlipidemiacontinue statin. Hypertensioncontinue hydralazine, losartan, spironolactone, Lasix. HPI History of Present Illness: Per Dr. Castorena: pt with worsening sob x 3-4 days. she is taking care of grandchildren who have also gotten sick. no falls. no ams. h/o copd and h/o intubation in the past. quit smoking in 1992. h/o a-fib, s/p ablation in jan 2025, and was subsequently taken off xarelto. states heart has been in nsr since then. she does have chills. has cough and chest pressue d/t sob. CONSULTS | PROCEDURES Consultations: PT Procedures: Chest x-ray, head CT HOSPITAL COURSE Hospital Course: Patient is a 74-year-old female with history of COPD on home oxygen who presented with worsening shortness of breath, cough, fevers, chills. Initially, she required BiPAP use. She was placed on IV steroids, scheduled DuoNebs, as well as 3 days of azithromycin for COPD exacerbation. Respiratory viral panel was positive for parainfluenza, for which she was given supportive care. During her stay, she went into atrial fibrillation, atrial flutter. I spoke with her tile grader, who recommended amiodarone 400 mg twice a day for 10 days, followed by 200 mg daily. He would like her to make an appointment within the next 1 to 2 weeks, which I informed her about. She was also advised to follow-up with her primary care provider and her milling machine operator. She was slowly weaned back down to her home oxygen requirements. She will be discharged on a short course of steroids. She was told to follow-up with her providers in a timely manner. ALLERGIES Allergies Allergy/AdvReac Type Severity Reaction Status Date / Time bupropion HCl * (From Allergy Severe Hallucinati Verified 02/26/25 20:37 Wellbutrin) ons nortriptyline AdvReac Unknown Verified 02/26/25 20:37 MEDICATIONS Ambulatory Orders Medication Instructions Recorded Confirmed atorvastatin 40 mg tablet 40 mg PO QPM 05/22/18 spironolactone 25 mg tablet 25 mg PO DAILY pulmonary H TN #30 05/26/18 02/27/25 tabs Permanent Disabled Placard 08/26/24 08/26/24 albuterol sulfate 90 mcg/actuation 2 puff inhalation Q ID PRN 08/26/24 02/27/25 aerosol inhaler shortness of breath or wheez ing losartan 100 mg tablet 100 mg PO QDAY 08/26/2402/18 melatonin 10 mg tablet 10 mg PO HS PRN sleep 02/27/25 potassium chloride 10 mEq 10 meq PO QDAY 08/26/2402/18 capsule,extended release tiotropium bromide 2.5 2 puff inhalation QDAY 08/2602/27/25 mcg/actuation mist for inhalation (Spiriva Respimat) furosemide 20 mg tablet 20 mg PO DAILY 02/27/2502/18 hydralazine 10 mg tablet 10 mg PO DAILY 02/27/2502/18 rivaroxaban 20 mg tablet (Xarelto) 20 mg PO DAILY 02/1802/27/25 sertraline 50 mg tablet 150 mg PO QDAY 02/27/2502/18 fluticasone furoate 200 1 inh inhalation BID 5 02/28/25 mcg/actuation blister powder for inhalation (Arnuity Ellipta) amiodarone 200 mg tablet 200 mg PO DAILY #30 tabs 10/14 amiodarone 200 mg tablet 400 mg (2 x 200 mg) PO BID 9 days 03/01/25 #36 tabs prednisone 20 mg tablet 40 mg (2 x 20 mg) PO DAILY 4 days 03/01/25 #8 tabs PHYSICAL EXAM AT DISCHARGE Vital Signs: Vital Signs x48h Temp Pulse Pulse Resp BP Pulse Ox O2 Flow Rate 03/01/25 12:52 97.7 F 81 20 143/89 H 97 3 03/01/25 12:33 3 03/01/25 11:00 3 03/01/25 09:59 3 03/01/25 09:59 79 16 3 03/01/25 09:00 4 03/01/25 08:37 97.5 F L 81 18 143/83 H 96 4 General Appearance: positive No acute distress and Alert; negative Anxious Eyes Bilateral: positive Normal inspection, PERRL and EOMI ENT: positive ENT inspection nml, Pharynx nml and No signs of dehydration Neck: positive Nml inspection, Thyroid nml and No JVD Respiratory: positive Chest non-tender, No respiratory distress and Breath sounds nml; negative Wheezes Cardiovascular: positive No murmur and Irregularly irregular; negative Tachycardia Peripheral Pulses: positive 2+ Abdomen: positive Non-tender, No organomegaly, Nml bowel sounds and No distention Back: positive Nml inspection; negative CVA tenderness (R) or CVA tenderness (L) Skin: positive Color nml, No rash, Warm and Dry Extremities: positive Non-tender, Full ROM, Nml appearance and No pedal edema Neurologic/Psychiatric: positive Oriented x3, Motor nml and Mood/affect nml LABS 03/01/25 04:23 03/01/25 04:23 DIAGNOSTIC IMAGING Diagnostic Imaging Results: Final report reviewed FOLLOW UP Follow Up: Follow up with PCP. Follow up with cardiology. Follow up with pulmonology. TIME SPENT Time Spent in Discharge (Minutes): 35 Discharge Plan Discharge Patient Disposition: 01 Home, Self Care Condition: Stable Prescriptions: New amiodarone 200 mg Tablet 400 mg PO BID 9 Days Qty: 36 0RF amiodarone 200 mg tablet 200 mg PO DAILY Qty: 30 0RF Rx Instructions: Please take 400mg (2 tabs) twice a day for 9 additional days. After that, please take 200mg daily. prednisone 20 mg tablet 40 mg PO DAILY 4 Days Qty: 8 0RF Continued atorvastatin 40 MG tablet 40 mg PO QPM spironolactone 25 MG tablet 25 mg PO DAILY Qty: 30 3RF Xarelto 20 mg tablet 20 mg PO DAILY Rx Instructions: Take 1 tablet by mouth once a day sertraline 50 mg tablet 150 mg PO QDAY Rx Instructions: TAKE 1 TO 3 TABLETS BY MOUTH ONCE DAILY furosemide 20 mg tablet 20 mg PO DAILY hydralazine 10 mg tablet 10 mg PO DAILY Rx Instructions: TAKE 1 TABLET BY MOUTH ONCE DAILY FOR HIGH BLOOD PRESSURE. SEE CARDIOLOGY SOON POSSIBLE Arnuity Ellipta 200 mcg/actuation blister with device 1 inh INHALATION BID losartan 100 mg tablet 100 mg PO QDAY Rx Instructions: Take 1 tablet by mouth once a day albuterol sulfate 90 mcg/actuation HFA aerosol inhaler 2 puff inhalation QID PRN (Reason: shortness of breath or wheezing) Rx Instructions: INHALE 2 PUFFS BY MOUTH DIRECTED 4 TIMES DAILY NEEDED (DME) Permanent Disabled Placard Misc See Rx Instructions .ROUTE Rx Instructions: Use 1 each as directed Display in front window. ICD-10 I48.0; J98.6 melatonin 10 mg tablet 10 mg PO HS PRN (Reason: sleep) potassium chloride 10 mEq capsule, extended release 10 meq PO QDAY Rx Instructions: Take 1 capsule by mouth once a day Spiriva Respimat 2.5 mcg/actuation mist 2 puff inhalation QDAY Rx Instructions: INHALE TWO PUFFS BY MOUTH ONCE DAILY as directed Activity Restrictions: Activity as Tolerated Diet: Cardiac Health Concerns: You came in because you were feeling very short of breath. You were found to be positive for parainfluenza, one of the viruses that causes a common cold. This likely triggered your COPD. You required BiPAP initially, and now have been weaned down to your home oxygen levels. Please continue to take your prednisone, an oral steroid, for the duration of its course. I have sent this to your [facility] pharmacy. While you were here, you are going into abnormal heart rhythms called atrial flutter and atrial fibrillation. I spoke with your direct care supervisor, Dr. Collier, and he would like you to go home with a new medication called amiodarone. He would also like you to call him and make a follow-up appointment in the next 1 to 2 weeks. Please follow-up with your milling machine operator, your primary care doctor and your direct care supervisor in the next few weeks. Please complete your medications as stated above. Thank you for allowing us to take care of you, we are glad you are feeling better. Print Language: Kinyarwanda Patient Instructions: Chronic Lung Disease Be Active Stand Alone Forms: PCP List Follow-up Care: Martha Alvares MD [Primary Care Provider] -"
[2025-03-01 12:54] VITALS: BP 143/89; TEMP 97.7; O2SAT 97
== END 2025-03-01 14:10 | disposition home or self-care (01) | DRG 189 ==
LOC: ED 20:24 → ICU 02-27 00:15 → OBS 03-01 02:35 → MS2 03-01 02:36
PROVIDERS: ADMIT Student in an Organized Health Care Education/Training Program; ATTEND Student in an Organized Health Care Education/Training Program
DX: B34.8 Other viral infections of unspecified site; E78.5 Hyperlipidemia, unspecified; J44.1 Chronic obstructive pulmonary disease with (acute) exacerbation; I48.91 Unspecified atrial fibrillation; R73.9 Hyperglycemia, unspecified; Z87.891 Personal history of nicotine dependence; J98.4 Other disorders of lung; I48.92 Unspecified atrial flutter; Z79.01 Long term (current) use of anticoagulants; Z99.81 Dependence on supplemental oxygen; I27.20 Pulmonary hypertension, unspecified; E87.5 Hyperkalemia; I10 Essential (primary) hypertension; J96.21 Acute and chronic respiratory failure with hypoxia